=== PATIENT | male | born 1945 | race Caucasian/White ===

== ENCOUNTER → 2016-05-11 | Outpatient (CLI) | payer MEDICARE ==
[2016-05-11 12:57] LABS: EKG EKG PERFORMED
[2016-05-11 13:03] LABS: Basophils % (A) 0 %; CH 31.6; CHCM 33.2; Eosinophils # (A) 0.2 k/uL (0-0.7); Eosinophils % (A) 3 %; HDW 3.01; Luc # (Auto) 0.11; Luc % (Auto) 1; Lymphocytes % (A) 13 %; MCHC 32.5 g/dL (31.0-37.0); MCV 95.5 fL (80.0-100.0); Mean Platelet Volume 8.1; Monocytes # (A) 0.3 k/uL (0-1.0); Monocytes % (A) 4 %; Neutrophils # (A) 6.2 k/uL (1.3-7.7); Neutrophils % (A) 79 %; RBC 4.82 m/uL (4.30-5.90); RDW 13.5 % (11.5-15.5); WBC 7.8 k/uL (3.8-10.6); WBC (Perox) 8.31
[2016-05-11 13:36] LABS: Anion Gap 13 mmol/L; Blood Urea Nitrogen 17 mg/dL (9-20); Calcium 8.9 mg/dL (8.4-10.2); Carbon Dioxide 29 mmol/L (22-30); Chloride 105 mmol/L (98-107); Glucose 138 mg/dL (74-99); Non-African American GFR(MDRD) >60 (>60 ml/min/1.73 sqM); Potassium 4.2 mmol/L (3.5-5.1); Sodium 147 mmol/L (137-145)
== END | disposition home or self-care (01) ==
LOC: LABPAT 12:48
PROVIDERS: ATTEND Urology
DX: Z01.812 Encounter for preprocedural laboratory examination (principal); N20.1 Calculus of ureter; I10 Essential (primary) hypertension; Z79.899 Other long term (current) drug therapy
CPT/HCPCS: 80048; 85025; 93005

== ENCOUNTER 2016-05-16 10:39 | Day surgery (SDC) | payer MEDICARE ==
[2016-05-15 08:56] VITALS: BMI 36.0
[~2016-05-16 10:39] MED LIST: DEXAMETHASONE SOD PHOSPHATE 10 MG/ML 1 ML VIAL IV ONE; HYDROmorphone 1 MG/ML 1 ML SYRINGE IVP PRN; LACTATED RINGERS 1,000 ML IV SCH; ONDANSETRON 4 MG/2 ML VIAL IVP ONE; Pre Op ABX Message 1 EACH MISC MISCELLANE ONE
[2016-05-16] MEDS ORDERED: LIDOCAINE 1% 20 ML VIAL (10MG/ML) FOR IV START INTRADERMA ONE (11:47)
[2016-05-16] MEDS ORDERED: ceFAZolin 1,000 MG in DEXTROSE/WATER 1 50ML.BAG IVPB ONE (12:20)
[2016-05-16] MEDS ORDERED: SUCCINYLCHOLINE CHLORIDE 100 MG/5 ML SYR IV ONE (12:27)
[2016-05-16] MEDS ORDERED: NEOSTIGMINE 1 MG/ML 10 ML VIAL ONE (12:27)
[2016-05-16] MEDS ORDERED: PHENYLEPHRINE-0.9% NACL SYG 1 MG/10 ML SYRINGE ONE (12:27)
[2016-05-16] MEDS ORDERED: ePHEDrine 50 MG/ML 1 ML AMP ONE (12:27)
[2016-05-16] MEDS ORDERED: GLYCOPYRROLATE 0.2 MG/ML 2 ML VIAL ONE (12:27)
[2016-05-16] MEDS ORDERED: MIDAZOLAM 2 MG/2 ML VIAL ONE (12:27)
[2016-05-16] MEDS ORDERED: ROCURONIUM BROMIDE 10 MG/ML 10 ML VIAL IV ONE (12:27)
[2016-05-16] MEDS ORDERED: fentaNYL (PF) 50 MCG/ML 2 ML AMP ONE (12:27)
[2016-05-16] MEDS ORDERED: ceFAZolin 1,000 MG/50 ML BAG (PMX) ONE (12:27)
[2016-05-16] MEDS ORDERED: LIDOCAINE 1% INJ 10MG/ML (20 ML MDV) ONE (12:27)
[2016-05-16] MEDS ORDERED: PROPOFOL 10 MG/ML 20 ML VIAL IV ONE (12:27)
[2016-05-16] MEDS ORDERED: LACTATED RINGERS 1,000 ML BAG IV ONE (12:27)
[2016-05-16] MEDS ORDERED: LACTATED RINGERS 1,000 ML IV ONE ×2 (13:52)
[2016-05-16 15:00] VITALS: TEMP 98.4
--- NOTE | 2016-05-16 15:13 | FL ---
EXAMINATION TYPE: FL guidance operating room DATE OF EXAM: 05/16/2016 2:54 PM CLINICAL HISTORY: Kidney stone TECHNIQUE: Fluoroscopy. COMPARISON: None. FINDINGS: Fluoroscopic guidance was provided during lithotripsy procedure performed by Dr. Flores. A total of 18 seconds of fluoroscopic time was utilized during the procedure and 0 spot images are acq uired. IMPRESSION: As Above.
[2016-05-16] MEDS ORDERED: Acetaminophen-Codeine 300-30mg TAB PO ONE (16:23)
[2016-05-16 17:03] VITALS: RESP 18
[2016-05-16 17:41] VITALS: BP 156/74; PULSE 53
--- NOTE | 2016-05-16 19:50 | OP ---
DATE OF SERVICE: 05/16/2016 SURGEON: MO CHOWDARY MD ELIGIBILITY CONSULTANT: PREOPERATIVE DIAGNOSES: 1. Distal left ureteral calculi (2). 2. Bladder calculi (2). POSTOPERATIVE DIAGNOSES: 1. Distal left ureteral calculi (2). 2. Bladder calculi (2). OPERATION: 1. Left cystoscopy with left ureteroscopy, lithotripsy and placement of left double-J catheter. 2. Cystolithotripsy. ANESTHESIA: General. ESTIMATED BLOOD LOSS: 3 ml SPECIMENS REMOVED: Bladder and left ureteral calculus fragments The patient is a 70-year-old male with a history of urolithiasis who recently developed left flank pain and was discovered to have moderately severe left hydroureteronephrosis secondary to 2 calculi in the distal left ureter, each measuring approximately 6 mm in greatest diameter. In addition, there were 2 calcifications in the bladder measuring approximately 12 to 15 mm in greatest diameter. The findings had also been seen on a CT scan done 2 years ago. In view of failure to pass the ureteral calculi and the size of the bladder calculi, it was felt that ureteroscopy with lithotripsy and cystolithotripsy were indicated. PROCEDURE: The patient was taken to the operating suite, where adequate general anesthesia via orotracheal intubation was instituted. Patient was placed in the dorsal lithotomy position with his legs suspended from padded Joel stirrups. Pneumatic compression stockings were applied to the patient's lower legs. The genitalia were prepped with Betadine soap, painted with Betadine solution and draped in a sterile fashion. The penile and prostatic urethra were traversed under direct vision using the 17 Guamanian cystoscope sheath with 30-degree lens. There was no evidence of inflammatory lesion, tumor or stricture noted in the anterior urethra. Prostatic urethra showed evidence of tri-lobar enlargement with a large median lobe which was somewhat pedunculated and protruded into the bladder. Passage of the cystoscope through the prostatic urethra caused bleeding from its surface. The bladder was examined. On the floor of the bladder were 2 yellowish calculi measuring approximately 1.5 cm in diameter each. The bladder was trabeculated but otherwise unremarkable. The left ureteral orifice was identified. A 0.035 Glidewire was advanced through the left ureteral orifice and up to the region of the renal pelvis. The cystoscope was withdrawn, leaving the Glidewire in place. A 13 Guamanian ureteral re-entry sheath with 11 Guamanian obturator was then advanced over the Glidewire and under fluoroscopic guidance positioned so that the proximal end of the sheath was in the distal ureter. Ureteroscopy was performed through the sheath using the flexible ureteroscope. One of the calculi broke up partially using the holmium laser and a 370-micron fiber at a setting of 600 millijoules and 8 cycles/second. The other calculus was not easily visible. The ureteral re-entry sheath and flexible scope were removed. The semi-rigid ureteroscope was advanced through the urethra and into the bladder. The left ureteral orifice was identified and the ureteroscope was passed into the distal ureter. The remaining calculus was then broken down into multiple small fragments. The largest of the fragments were then removed using the 1.9 Guamanian stone basket. A 0.035 Glidewire was then passed through the ureteroscope and positioned so the proximal end was in the renal pelvis. The cystoscope was reintroduced into the bladder. The bladder calculi were broken down into multiple small fragments using the holmium laser at a setting of 1.2 joules and 6 cycles/second. The fragments were then removed from the bladder through the 25 Guamanian cystoscope sheath. The 22 Guamanian cystoscope sheath was then back-loaded onto the Glidewire and reinserted into the bladder. A 6 Guamanian x 24 cm double-J catheter was then advanced over the Glidewire and positioned so the proximal end coiled in the region of the left renal pelvis and the distal end coiled in the bladder. The bladder was drained and the cystoscope was withdrawn. The patient tolerated the procedure well and left the operating room awake and in satisfactory condition. Blood loss was approximately 3 mL, the majority of which was from the surface of the prostate. The patient will be discharged and will be seen back in approximately 10 days, at which time his double-J catheter will be removed. FRANNIE
== END 2016-05-16 18:52 | disposition home or self-care (01) ==
LOC: OR 10:39
PROVIDERS: ATTEND Urology
DX: N13.2 Hydronephrosis with renal and ureteral calculous obstruction (principal); N21.0 Calculus in bladder; N39.0 Urinary tract infection, site not specified; B95.2 Enterococcus as the cause of diseases classified elsewhere; I10 Essential (primary) hypertension; N40.1 Benign prostatic hyperplasia with lower urinary tract symptoms; I25.10 Atherosclerotic heart disease of native coronary artery without angina pectoris; Z95.5 Presence of coronary angioplasty implant and graft; G47.33 Obstructive sleep apnea (adult) (pediatric); I25.2 Old myocardial infarction; Z86.73 Personal history of transient ischemic attack (TIA), and cerebral infarction without residual deficits; Z79.2 Long term (current) use of antibiotics; Z79.82 Long term (current) use of aspirin; Z79.899 Other long term (current) drug therapy; Z88.8 Allergy status to other drugs, medicaments and biological substances; Z91.040 Latex allergy status; Z87.891 Personal history of nicotine dependence
CPT/HCPCS: 52356; C2625; C1769; J2250; J1100; J2710; J2405; J2001; J3010; J0690; J2370; J0330; J2704; 82365

== ENCOUNTER → 2016-06-26 | Outpatient (CLI) | payer MEDICARE ==
--- NOTE | 2016-06-26 13:02 | US ---
EXAMINATION TYPE: US kidneys/renal and bladder DATE OF EXAM: 06/26/2016 10:36 AM COMPARISON: NONE CLINICAL HISTORY: 71-year-old male N13.30 hydronephrosis. History of stones and stone removal. TECHNIQUE: Multiple sonographic images of the kidneys and bladder were obtained. FINDINGS: Right Kidney: 13.3 x 5.0 x 6.0 cm without hydronephrosis. There is a large shadowing midpole calculu s measuring 1.5 cm. A second echogenic focus also in the mid pole measures 7 mm and likely represents an additional renal calculus. There is a simple cyst in the upper pole measuring 2.1 cm. Left Kidney: 13.0 x 5.3 x 5.3 cm without hydronephrosis. There is a simple cyst in the upper pole sylwia suring 2.0 cm. Mild bladder wall trabeculations. Both ureteral jets are visualized. IMPRESSION: 1. No hydronephrosis. 2. Right-sided nephrolithiasis measuring up to 1.5 cm. 3. A simple cyst within each kidney measuring up to 2.0 cm. 4. Bladder wall trabeculation suggests mural hypertrophy. Correlate for any underlying BPH and chroni c bladder outlet obstruction.
== END | disposition home or self-care (01) ==
LOC: RADUSWWP 10:17
PROVIDERS: ATTEND Urology
DX: N20.0 Calculus of kidney (principal); N28.1 Cyst of kidney, acquired; N32.89 Other specified disorders of bladder
CPT/HCPCS: 76770

== ENCOUNTER → 2017-08-03 | Outpatient (CLI) | payer MEDICARE ==
--- NOTE | 2017-08-03 09:42 | US ---
EXAMINATION TYPE: US duplex aorta DATE OF EXAM: 08/03/2017 COMPARISON: 05/05/2016. CLINICAL HISTORY: I71.4 abdominal aortic aneurysm without rupture. F/U AAA EXAM MEASUREMENTS: Abdominal Aorta: Proximal: 3.0 X 3.1 cm Mid: 2.2 x 2.5 cm Distal: 3.2 x 3.3 cm Bifurcation: JEFF: 1.2 x 1.2 cm ELADIO: 1.4 x 1.2 cm Wall calcifications with Ectatic aorta and slightly larger measurements of proximal and distal port ions showing AAA IMPRESSION: Abdominal aortic aneurysm as described. No significant interval change appreciated.
== END ==
LOC: RADUSWWP 08:32
PROVIDERS: ATTEND Internal Medicine
DX: I71.4 Abdominal aortic aneurysm, without rupture (principal)
CPT/HCPCS: 93979

== ENCOUNTER → 2018-02-18 | Outpatient (CLI) | payer MEDICARE ==
--- NOTE | 2018-02-18 13:59 | US ---
EXAMINATION TYPE: US groin RT DATE OF EXAM: 02/18/2018 COMPARISON: NONE CLINICAL HISTORY: 72-year-old male K43.6 Hernia of Abdominal Wall. Right groin stinging sensation aft er coughing today. TECHNIQUE: Multiple sonographic images of the right inguinal region with and without Valsalva. FINDINGS: Leno Sewer notes: No hernia is identified at patient's complaint of medial right groin/pain and sti nging. A couple of lymph nodes are noted at right groin with larger node mildly enlarged at 2.6 x 2.0 x 0.9cm. IMPRESSION: 1. Dynamic exam with Valsalva shows no sonographic evidence for inguinal hernia. 2. Borderline to mildly enlarged right inguinal lymph node is noted. This lymph node maintains a norm al, large fatty hilum. Probably reactive.
== END | disposition home or self-care (01) ==
LOC: RADUSWWP 12:52
PROVIDERS: ATTEND Family Medicine
DX: R59.0 Localized enlarged lymph nodes (principal)

== ENCOUNTER → 2018-02-22 | Outpatient (CLI) | payer MEDICARE ==
--- NOTE | 2018-02-22 10:10 | US ---
EXAMINATION TYPE: US duplex aorta DATE OF EXAM: 02/22/2018 COMPARISON: 07/22 CLINICAL HISTORY: I71.4 Abdominal aortic aneurysm. prior abn US EXAM MEASUREMENTS: Abdominal Aorta: Proximal: 3.0 x 2.6cm Mid: 2.3 x 2.3cm Distal: 3.3 x 2.8cm Bifurcation: 1.3 x 1.8cm and 1.5 x 1.2cm IMPRESSION: Somewhat ectatic aorta, changes, small AAA seen distally at 3.3cm.
== END ==
LOC: RADUSWWP 09:25
PROVIDERS: ATTEND Internal Medicine
DX: I71.4 Abdominal aortic aneurysm, without rupture (principal)
CPT/HCPCS: 93979

== ENCOUNTER 2018-03-12 00:37 | Emergency (ER) | payer MEDICARE ==
[2018-03-12 00:45] VITALS: BP 157/79; PULSE 53; RESP 18; TEMP 97.7
[2018-03-12] MEDS ORDERED: SODIUM CHLORIDE 0.9% 1,000 ML IV STA (01:14)
[2018-03-12 01:30] LABS: Basophils % (A) 1 %; Eosinophils # (A) 0.2 k/uL (0-0.7); Eosinophils % (A) 3 %; HCT 40.9 % (39.0-53.0); HGB 13.6 gm/dL (13.0-17.5); Lymphocytes # (A) 1.4 k/uL (1.0-4.8); Lymphocytes % (A) 20 %; MCH 31.5 pg (25.0-35.0); MCHC 33.3 g/dL (31.0-37.0); MCV 94.6 fL (80.0-100.0); Mean Platelet Volume 8.2; Monocytes # (A) 0.5 k/uL (0-1.0); Monocytes % (A) 7 %; Neutrophils # (A) 4.7 k/uL (1.3-7.7); Neutrophils % (A) 67 %; Platelet Count 122 k/uL (150-450); RBC 4.32 m/uL (4.30-5.90); RDW 14.2 % (11.5-15.5)
--- NOTE | 2018-03-12 01:37 | ED ---
Extremity Problem HPI - General Chief complaint: Extremity Problem,Nontraumatic Stated complaint: Arm Numbness Time Seen by Provider: 03/12/18 00:55 Source: patient, RN notes reviewed, old records reviewed Mode of arrival: ambulatory Limitations: no limitations - History of Present Illness Initial comments: Patient is a 72-year-old male with a history of coronary artery disease presents emergency department with one week of intermittent numbness tingling on the left arm. Patient this time has no headache. Has no other complaints of weakness. Denies chest pain. Patient reports he took a nitro to see it it would relieve pain, but it did not. Patient states the pain is worse and is laying in his bed today. Patient states that he has had no significant shortness of breath. He denies any nausea or vomiting or abdominal pain. Patient's scrap baller is Dr. Rojas. - Related Data Home Medications Medication Instructions Recorded Confirmed Atenolol [Tenormin] 25 mg PO QAM 08/27/14 05/16/16 Aspirin EC [Ecotrin Low Dose] 81 mg PO HS 08/29/14 05/16/16 Isosorbide Mononitrate [Ismo] 20 mg PO BID 08/29/14 05/16/16 Niacin [Niacin ER] 1,000 mg PO HS 08/29/14 05/16/16 Simvastatin [Zocor] 20 mg PO HS 08/29/14 05/16/16 Vitamin B Complex 1 cap PO DAILY 08/29/14 05/16/16 Doxazosin [Cardura] 2 mg PO HS 05/02/16 05/16/16 Amoxicillin 500 mg PO TID 05/15/16 05/16/16 Methocarbamol [Robaxin] 750 mg PO BID PRN 05/15/16 05/16/16 Previous Rx's Medication Instructions Recorded traMADol HCl [Ultram] 50 mg PO Q6H PRN #20 tab 05/03/16 Acetaminophen-Codeine 300-30mg 1 tab PO Q6H PRN #15 tablet 05/16/16 [Tylenol w/codeine #3] Cyclobenzaprine [Flexeril] 10 mg PO TID #9 tab 03/12/18 Dexamethasone 0.75 mg PO DAILY #12 tab 03/12/18 Allergies Allergy/AdvReac Type Severity Reaction Status Date / Time latex Allergy Dyspnea Verified 03/12/18 00:45 Review of Systems ROS Statement: Those systems with pertinent positive or pertinent negative responses have been documented in the HPI. ROS Other: All systems not noted in ROS Statement are negative. Past Medical History Past Medical History: Chest Pain / Angina, CVA/TIA, Hypertension, Myocardial Infarction ([place]) Additional Past Medical History / Comment(s): Patient states he has had stents and heart cath but unsure of the date and how many stents. Last Myocardial Infarction Date:: 1990 History of Any Multi-Drug Resistant Organisms: None Reported Past Surgical History: Heart Catheterization With Stent, Tonsillectomy Additional Past Surgical History / Comment(s): VASECTOMY Past Anesthesia/Blood Transfusion Reactions: No Reported Reaction Date of Last Stent Placement:: unknown Past Psychological History: No Psychological Hx Reported Smoking Status: Never smoker - Past Family History Father Family Medical History: Myocardial Infarction ([place]) Additional Family Medical History / Comment(s): Father at 52 from [place] Mother Family Medical History: Cancer Additional Family Medical History / Comment(s): SKIN CANCER General Exam - General Exam Comments Initial Comments: 72-year-old male. Alert and oriented 3. Patient appears in no significant distress. Limitations: no limitations General appearance: alert, in no apparent distress Head exam: Present: atraumatic, normocephalic, normal inspection Eye exam: Present: normal appearance, PERRL, EOMI. Absent: scleral icterus, conjunctival injection, periorbital swelling ENT exam: Present: normal exam, mucous membranes moist Neck exam: Present: normal inspection. Absent: tenderness, meningismus, lymphadenopathy Respiratory exam: Present: normal lung sounds bilaterally. Absent: respiratory distress, wheezes, rales, rhonchi, stridor Cardiovascular Exam: Present: regular rate, normal rhythm, normal heart sounds. Absent: systolic murmur, diastolic murmur, rubs, gallop, clicks GI/Abdominal exam: Present: soft, normal bowel sounds. Absent: distended, tenderness, guarding, rebound, rigid Extremities exam: Present: normal inspection, full ROM, normal capillary refill , other (normal sensation and pulses in Left arm. ). Absent: tenderness, pedal edema, joint swelling, calf tenderness Back exam: Present: normal inspection Neurological exam: Present: alert, oriented X3, CN II-XII intact Psychiatric exam: Present: normal affect, normal mood Course Vital Signs 03/12/18 00:41 Temperature 97.7 F Pulse Rate 53 L Respiratory 18 Rate Blood Pressure 157/79 O2 Sat by Pulse 99 Oximetry Medical Decision Making - Medical Decision Making Patient is a 72 year old male with left arm tingling and pain for one week intermittently. Patient pain was worse this evening. Denies associated chest tightness or pressure. Denies headache. He has no neurological deficits or signs of weakness. Normal pulses in all extremities. Patient has a normal EKG with no acute changes. Troponin is negative. CXR is nromal, no acute changes noted. Patient CBC adn CMP are unremarkable. Given pain for one week, if this is cardiac in nature would expect changes in EKG and troponin. Patient pain seems to be musculoskeletal and likely pinched nerve. Patient does report pain is relieved with pressing on arm in certain areas. Discussed that patient can have short course of steroid, muscle relaxer. Discussed return parameters. Patient agrees to follow up with Dr. Pham and return parameters discussed. - Lab Data Result diagrams: 03/12/18 01:18 03/12/18 01:18 Lab Results 03/12/18 03/12/18 03/12/18 Range/Units 01:18 01:18 01:18 WBC 7.0 (3.8-10.6) k/uL RBC 4.32 (4.30-5.90) m/uL Hgb 13.6 (13.0-17.5) gm/dL Hct 40.9 (39.0-53.0) % MCV 94.6 (80.0-100.0) fL MCH 31.5 (25.0-35.0) pg MCHC 33.3 (31.0-37.0) g/dL RDW 14.2 (11.5-15.5) % Plt Count 122 L (150-450) k/uL Neutrophils % 67 % Lymphocytes % 20 % Monocytes % 7 % Eosinophils % 3 % Basophils % 1 % Neutrophils # 4.7 (1.3-7.7) k/uL Lymphocytes # 1.4 (1.0-4.8) k/uL Monocytes # 0.5 (0-1.0) k/uL Eosinophils # 0.2 (0-0.7) k/uL Basophils # 0.0 (0-0.2) k/uL PT (9.0-12.0) sec INR (<1.2) APTT (22.0-30.0) sec Sodium 140 (137-145) mmol/L Potassium 4.1 (3.5-5.1) mmol/L Chloride 108 H (98-107) mmol/L Carbon Dioxide 26 (22-30) mmol/L Anion Gap 6 mmol/L BUN 23 H (9-20) mg/dL Creatinine 0.80 (0.66-1.25) mg/dL Est GFR (CKD-EPI)AfAm >90 (>60 ml/min/1.73 sqM) Est GFR (CKD-EPI)NonAf 88 (>60 ml/min/1.73 sqM) Glucose 93 (74-99) mg/dL Calcium 9.0 (8.4-10.2) mg/dL Magnesium 2.2 (1.6-2.3) mg/dL Total Bilirubin 0.8 (0.2-1.3) mg/dL AST 27 (17-59) U/L ALT 27 (21-72) U/L Alkaline Phosphatase 96 (38-126) U/L Total Creatine Kinase 140 (55-170) U/L CK-MB (CK-2) 3.0 H (0.0-2.4) ng/mL CK-MB (CK-2) Rel Index 2.1 Troponin I <0.012 (0.000-0.034) ng/mL Total Protein 6.3 (6.3-8.2) g/dL Albumin 3.8 (3.5-5.0) g/dL 03/12/18 Range/Units 01:18 WBC (3.8-10.6) k/uL RBC (4.30-5.90) m/uL Hgb (13.0-17.5) gm/dL Hct (39.0-53.0) % MCV (80.0-100.0) fL MCH (25.0-35.0) pg MCHC (31.0-37.0) g/dL RDW (11.5-15.5) % Plt Count (150-450) k/uL Neutrophils % % Lymphocytes % % Monocytes % % Eosinophils % % Basophils % % Neutrophils # (1.3-7.7) k/uL Lymphocytes # (1.0-4.8) k/uL Monocytes # (0-1.0) k/uL Eosinophils # (0-0.7) k/uL Basophils # (0-0.2) k/uL PT 10.9 (9.0-12.0) sec INR 1.1 (<1.2) APTT 25.3 (22.0-30.0) sec Sodium (137-145) mmol/L Potassium (3.5-5.1) mmol/L Chloride (98-107) mmol/L Carbon Dioxide (22-30) mmol/L Anion Gap mmol/L BUN (9-20) mg/dL Creatinine (0.66-1.25) mg/dL Est GFR (CKD-EPI)AfAm (>60 ml/min/1.73 sqM) Est GFR (CKD-EPI)NonAf (>60 ml/min/1.73 sqM) Glucose (74-99) mg/dL Calcium (8.4-10.2) mg/dL Magnesium (1.6-2.3) mg/dL Total Bilirubin (0.2-1.3) mg/dL AST (17-59) U/L ALT (21-72) U/L Alkaline Phosphatase (38-126) U/L Total Creatine Kinase (55-170) U/L CK-MB (CK-2) (0.0-2.4) ng/mL CK-MB (CK-2) Rel Index Troponin I (0.000-0.034) ng/mL Total Protein (6.3-8.2) g/dL Albumin (3.5-5.0) g/dL 03/12/18 01:36 EKG shows sinus bradycardia otherwise normal EKG. Ventricular rate of 52 bpm. MS interval is 186 ms. QRS duration 98. QT QTc is 440/409. - Radiology Data Radiology results: report reviewed CXR is negative for acute cardiopulmonary disease. Disposition Clinical Impression: Left upper arm pain Disposition: HOME SELF-CARE Condition: Good Prescriptions: Cyclobenzaprine [Flexeril] 10 mg PO TID #9 tab Dexamethasone 0.75 mg PO DAILY #12 tab Is patient prescribed a controlled substance at d/c from ED?: No Referrals: Gallito Pham MD [Primary Care Provider] - 1-2 days Time of Disposition: 02:54
[2018-03-12 01:45] LABS: ALT 27 U/L (21-72); AST 27 U/L (17-59); Albumin 3.8 g/dL (3.5-5.0); Alkaline Phosphatase 96 U/L (38-126); Anion Gap 6 mmol/L; Blood Urea Nitrogen 23 mg/dL (9-20); Carbon Dioxide 26 mmol/L (22-30); Chloride 108 mmol/L (98-107); Glucose 93 mg/dL (74-99); Magnesium 2.2 mg/dL (1.6-2.3); Potassium 4.1 mmol/L (3.5-5.1); Sodium 140 mmol/L (137-145); Total Bilirubin 0.8 mg/dL (0.2-1.3); Total Protein 6.3 g/dL (6.3-8.2)
[2018-03-12 01:52] LABS: Creatine Kinase 140 U/L (55-170)
[2018-03-12 01:53] LABS: INR 1.1 (<1.2); Partial Thromboplastin Time 25.3 sec (22.0-30.0); Prothrombin Time 10.9 sec (9.0-12.0)
[2018-03-12 02:05] LABS: Troponin I <0.012 ng/mL (0.000-0.034)
--- NOTE | 2018-03-12 02:07 | XR ---
EXAMINATION TYPE: XR chest 2V DATE OF EXAM: 03/12/2018 COMPARISON: 02/06/2015 HISTORY: Chest pain TECHNIQUE: Frontal and lateral views of the chest are obtained. FINDINGS: There is no heart failure nor confluent pneumonic infiltrate. Costophrenic angles are nicolas r. Thoracic aorta is atheromatous. There is mild spurring in the thoracic spine. IMPRESSION: No active cardiopulmonary disease. No change.
[2018-03-12] MEDS ORDERED: ORPHENADRINE 30 MG/ML 2 ML VIAL IVP STA (02:52)
[2018-03-12] MEDS ORDERED: KETOROLAC 30 MG/ML 1 ML VIAL IVP STA (02:52)
== END 2018-03-12 03:28 | disposition home or self-care (01) ==
LOC: EC 00:37
DX: M79.622 Pain in left upper arm (principal); R00.1 Bradycardia, unspecified; R20.2 Paresthesia of skin; R20.0 Anesthesia of skin; I10 Essential (primary) hypertension; I25.10 Atherosclerotic heart disease of native coronary artery without angina pectoris; I25.2 Old myocardial infarction; Z91.040 Latex allergy status; Z79.82 Long term (current) use of aspirin; Z79.899 Other long term (current) drug therapy; Z86.79 Personal history of other diseases of the circulatory system; Z95.818 Presence of other cardiac implants and grafts; Z82.49 Family history of ischemic heart disease and other diseases of the circulatory system
CPT/HCPCS: 36415; 93005; 80053; 82550; 82553; 83735; 84484; 85025; 85610; 85730; 71046; 99284; 96374; 96375; 96361 ×2; J2360; J1885

== ENCOUNTER 2018-06-18 15:04 | Observation (INO) | payer MEDICARE ==
[2018-06-18] MEDS ORDERED: SODIUM CHLORIDE 0.9% 500 ML 500 ML IV STA (15:24)
[2018-06-18] MEDS ORDERED: NITROGLYCERIN SL TABS 0.4 MG TAB SUBLINGUAL STA (15:24)
[2018-06-18] MEDS ORDERED: ASPIRIN 81 MG PO STA (15:24)
--- NOTE | 2018-06-18 15:35 | ED ---
General Adult HPI - General Chief complaint: Chest Pain Stated complaint: chest pain Time Seen by Provider: 06/18/18 15:05 Source: patient, RN notes reviewed Mode of arrival: wheelchair Limitations: no limitations - History of Present Illness Initial comments: This is a 72-year-old male who complains of chest pain since yesterday. Patient states the duration of the pain lasted about 10 minutes. Patient states she's also noted shortness of breath with the pain. Patient states he has no radiation of the pain. Patient denies any diaphoretic episodes. Patient denies any nausea. Patient states he does have a history of multiple stents a heart attack in the past. Patient denies any diabetes but states he does have high blood pressure high cholesterol. Patient denies abdominal pain patient denies nausea vomiting diarrhea. Patient denies any fever or cough. Patient states this pain feels typical of his chest pain that he had with his heart attack. Patient states currently he is having a little bit of pain at this time. - Related Data Home Medications Medication Instructions Recorded Confirmed Isosorbide Mononitrate [Ismo] 20 mg PO BID 08/29/14 06/18/18 Niacin [Niacin ER] 1,000 mg PO HS 08/29/14 06/18/18 Simvastatin [Zocor] 20 mg PO DAILY 08/29/14 06/18/18 Doxazosin [Cardura] 4 mg PO DAILY 05/02/16 06/18/18 Atenolol [Tenormin] 50 mg PO DAILY 06/18/18 06/18/18 Nystatin 100,000Unit/gm Cream 1 applic TOPICAL BID 06/18/18 06/18/18 [Mycostatin Cream] tiZANidine HCL [Zanaflex] 4 mg PO BID 06/18/18 06/18/18 Previous Rx's Medication Instructions Recorded traMADol HCl [Ultram] 50 mg PO Q6H PRN #20 tab 05/03/16 Allergies Allergy/AdvReac Type Severity Reaction Status Date / Time latex Allergy Dyspnea Verified 06/18/18 15:59 Review of Systems ROS Statement: Those systems with pertinent positive or pertinent negative responses have been documented in the HPI. ROS Other: All systems not noted in ROS Statement are negative. Past Medical History Past Medical History: Chest Pain / Angina, CVA/TIA, Hypertension, Myocardial Infarction ([place]) Additional Past Medical History / Comment(s): Patient states he has had stents and heart cath but unsure of the date and how many stents. Last Myocardial Infarction Date:: 1990 History of Any Multi-Drug Resistant Organisms: None Reported Past Surgical History: Heart Catheterization With Stent, Tonsillectomy Additional Past Surgical History / Comment(s): VASECTOMY Past Anesthesia/Blood Transfusion Reactions: No Reported Reaction Date of Last Stent Placement:: unknown Past Psychological History: No Psychological Hx Reported Smoking Status: Never smoker Past Alcohol Use History: None Reported Past Drug Use History: None Reported - Past Family History Father Family Medical History: Myocardial Infarction ([place]) Additional Family Medical History / Comment(s): Father at 52 from [place] Mother Family Medical History: Cancer Additional Family Medical History / Comment(s): SKIN CANCER General Exam - General Exam Comments Initial Comments: GENERAL: Patient is well-developed and well-nourished. Patient is nontoxic and well- hydrated and is in mild distress. ENT: Neck is soft and supple. No significant lymphadenopathy is noted. Oropharynx is clear. Moist mucous membranes. Neck has full range of motion without eliciting any pain. EYES: The sclera were anicteric and conjunctiva were pink and moist. Extraocular movements were intact and pupils were equal round and reactive to light. Eyelids were unremarkable. PULMONARY: Unlabored respirations. Good breath sounds bilaterally. No audible rales rhonchi or wheezing was noted. CARDIOVASCULAR: There is a regular rate and rhythm without any murmurs gallops or rubs. ABDOMEN: Soft and nontender with normal bowel sounds. No palpable organomegaly was noted. There is no palpable pulsatile mass. SKIN: Skin is clear with no lesions or rashes and otherwise unremarkable. NEUROLOGIC: Patient is alert and oriented x3. Cranial nerves II through XII are grossly intact. Motor and sensory are also intact. Normal speech, volume and content. Symmetrical smile. MUSCULOSKELETAL: Normal extremities with adequate strength and full range of motion. No lower extremity swelling or edema. No calf tenderness. LYMPHATICS: No significant lymphadenopathy is noted PSYCHIATRIC: Normal psychiatric evaluation. Limitations: no limitations Course Vital Signs 06/18/18 06/18/18 06/18/18 15:08 15:30 16:00 Temperature 97.5 F L Pulse Rate 54 L Respiratory 18 Rate Blood Pressure 144/76 139/70 150/82 O2 Sat by Pulse 97 Oximetry 06/18/18 16:30 Temperature Pulse Rate 61 Respiratory 15 Rate Blood Pressure 137/70 O2 Sat by Pulse 96 Oximetry Medical Decision Making - Medical Decision Making EKG shows sinus bradycardia 51 bpm [place] interval 102 QRS is 96 Q-T intervals 432 QTC is 398. Patient's EKG shows no ST segment elevation or T wave abnormalities. Chest x-ray shows no acute abnormality I started the patient on heparin. She received nitroglycerin while in the emergency department and had no chest pain when I reevaluated him. I spoke with Dr. Pham he agreed to admit the patient admitted the patient I wrote admitting orders to continue the heparin Nitropaste and aspirin on the floor. I consult to cardiology. - Lab Data Result diagrams: 06/18/18 15:45 06/18/18 15:45 Lab Results 06/18/18 06/18/18 06/18/18 Range/Units 15:45 15:45 15:45 WBC 6.0 (3.8-10.6) k/uL RBC 4.56 (4.30-5.90) m/uL Hgb 14.5 (13.0-17.5) gm/dL Hct 42.5 (39.0-53.0) % MCV 93.3 (80.0-100.0) fL MCH 31.7 (25.0-35.0) pg MCHC 34.0 (31.0-37.0) g/dL RDW 13.7 (11.5-15.5) % Plt Count 130 L (150-450) k/uL Neutrophils % 69 % Lymphocytes % 19 % Monocytes % 7 % Eosinophils % 4 % Basophils % 0 % Neutrophils # 4.1 (1.3-7.7) k/uL Lymphocytes # 1.2 (1.0-4.8) k/uL Monocytes # 0.4 (0-1.0) k/uL Eosinophils # 0.2 (0-0.7) k/uL Basophils # 0.0 (0-0.2) k/uL PT (9.0-12.0) sec INR (<1.2) APTT (22.0-30.0) sec Sodium 140 (137-145) mmol/L Potassium 4.5 (3.5-5.1) mmol/L Chloride 106 (98-107) mmol/L Carbon Dioxide 26 (22-30) mmol/L Anion Gap 8 mmol/L BUN 18 (9-20) mg/dL Creatinine 0.89 (0.66-1.25) mg/dL Est GFR (CKD-EPI)AfAm >90 (>60 ml/min/1.73 sqM) Est GFR (CKD-EPI)NonAf 85 (>60 ml/min/1.73 sqM) Glucose 96 (74-99) mg/dL Calcium 9.3 (8.4-10.2) mg/dL Magnesium 2.3 (1.6-2.3) mg/dL Total Bilirubin 1.1 (0.2-1.3) mg/dL AST 31 (17-59) U/L ALT 32 (21-72) U/L Alkaline Phosphatase 84 (38-126) U/L Total Creatine Kinase 179 H (55-170) U/L CK-MB (CK-2) 3.0 H (0.0-2.4) ng/mL CK-MB (CK-2) Rel Index 1.7 Troponin I <0.012 (0.000-0.034) ng/mL Total Protein 6.7 (6.3-8.2) g/dL Albumin 4.2 (3.5-5.0) g/dL 06/18/18 Range/Units 15:45 WBC (3.8-10.6) k/uL RBC (4.30-5.90) m/uL Hgb (13.0-17.5) gm/dL Hct (39.0-53.0) % MCV (80.0-100.0) fL MCH (25.0-35.0) pg MCHC (31.0-37.0) g/dL RDW (11.5-15.5) % Plt Count (150-450) k/uL Neutrophils % % Lymphocytes % % Monocytes % % Eosinophils % % Basophils % % Neutrophils # (1.3-7.7) k/uL Lymphocytes # (1.0-4.8) k/uL Monocytes # (0-1.0) k/uL Eosinophils # (0-0.7) k/uL Basophils # (0-0.2) k/uL PT 11.1 (9.0-12.0) sec INR 1.0 (<1.2) APTT 27.6 (22.0-30.0) sec Sodium (137-145) mmol/L Potassium (3.5-5.1) mmol/L Chloride (98-107) mmol/L Carbon Dioxide (22-30) mmol/L Anion Gap mmol/L BUN (9-20) mg/dL Creatinine (0.66-1.25) mg/dL Est GFR (CKD-EPI)AfAm (>60 ml/min/1.73 sqM) Est GFR (CKD-EPI)NonAf (>60 ml/min/1.73 sqM) Glucose (74-99) mg/dL Calcium (8.4-10.2) mg/dL Magnesium (1.6-2.3) mg/dL Total Bilirubin (0.2-1.3) mg/dL AST (17-59) U/L ALT (21-72) U/L Alkaline Phosphatase (38-126) U/L Total Creatine Kinase (55-170) U/L CK-MB (CK-2) (0.0-2.4) ng/mL CK-MB (CK-2) Rel Index Troponin I (0.000-0.034) ng/mL Total Protein (6.3-8.2) g/dL Albumin (3.5-5.0) g/dL Critical Care Time Critical Care Time: Yes Total Critical Care Time: 35 Disposition Clinical Impression: Unstable angina pectoris Disposition: ADMITTED IP TO THIS [facility] Referrals: Gallito Pham MD [Primary Care Provider] - 1-2 days Time of Disposition: 17:02
[2018-06-18 16:09] LABS: Basophils % (A) 0 %; Eosinophils # (A) 0.2 k/uL (0-0.7); Eosinophils % (A) 4 %; HCT 42.5 % (39.0-53.0); HGB 14.5 gm/dL (13.0-17.5); Lymphocytes # (A) 1.2 k/uL (1.0-4.8); Lymphocytes % (A) 19 %; MCH 31.7 pg (25.0-35.0); MCV 93.3 fL (80.0-100.0); Mean Platelet Volume 8.2; Monocytes # (A) 0.4 k/uL (0-1.0); Monocytes % (A) 7 %; Neutrophils # (A) 4.1 k/uL (1.3-7.7); Neutrophils % (A) 69 %; Platelet Count 130 k/uL (150-450); RBC 4.56 m/uL (4.30-5.90); RDW 13.7 % (11.5-15.5)
[2018-06-18] MEDS: NITROGLYCERIN OINT 1 INCH/GM PACKET TOPICAL STA ×2 (16:09→17:49)
--- NOTE | 2018-06-18 16:09 | XR ---
EXAMINATION TYPE: XR chest 2V DATE OF EXAM: 06/18/2018 COMPARISON: Prior chest x-ray 03/12/2018 HISTORY: Chest pain TECHNIQUE: Frontal and lateral views of the chest are obtained. FINDINGS: There is no focal air space opacity, pleural effusion, or pneumothorax seen. The cardiac silhouette size is stable, mildly enlarged. The osseous structures are intact. The aorta is dense. There are cardiac leads. Thoracic spondylosis is present. IMPRESSION: No acute cardiopulmonary process. Stable mild cardiomegaly.
[2018-06-18 16:17] LABS: Partial Thromboplastin Time 27.6 sec (22.0-30.0); Prothrombin Time 11.1 sec (9.0-12.0)
[2018-06-18 16:22] LABS: ALT 32 U/L (21-72); AST 31 U/L (17-59); Albumin 4.2 g/dL (3.5-5.0); Alkaline Phosphatase 84 U/L (38-126); Anion Gap 8 mmol/L; Blood Urea Nitrogen 18 mg/dL (9-20); Calcium 9.3 mg/dL (8.4-10.2); Carbon Dioxide 26 mmol/L (22-30); Chloride 106 mmol/L (98-107); Glucose 96 mg/dL (74-99); Magnesium 2.3 mg/dL (1.6-2.3); Potassium 4.5 mmol/L (3.5-5.1); Sodium 140 mmol/L (137-145); Total Bilirubin 1.1 mg/dL (0.2-1.3); Total Protein 6.7 g/dL (6.3-8.2)
[2018-06-18 16:25] LABS: Creatine Kinase 179 U/L (55-170)
[2018-06-18 16:39] LABS: Troponin I <0.012 ng/mL (0.000-0.034)
[2018-06-18] MEDS ORDERED: HEPARIN SODIUM,PORCINE 5,000 UNIT/ML 1 ML VIAL IV ONE (16:59)
[2018-06-18] MEDS ORDERED: HEPARIN SOD,PORK IN 0.45% NACL 25,000 UNIT in 0.45% NACL 1 250ML.BAG IV SCH (17:00)
[2018-06-18] MEDS ORDERED: NITROGLYCERIN SL TABS 0.4 MG TAB SUBLINGUAL PRN (17:03)
[2018-06-18 18:41] VITALS: BMI 36.3
[2018-06-18] MEDS ORDERED: traMADol 50 MG TAB PO PRN (18:44)
[2018-06-18] MEDS: NITROGLYCERIN OINT 1 INCH/GM PACKET TOPICAL SCH ×2 (18:52→23:50)
[2018-06-18] MEDS: NIACIN TR 500 MG CAPLET PO SCH (20:14)
[2018-06-18] MEDS: tiZANidine 4 MG TAB PO SCH (20:14)
[2018-06-18] MEDS: NYSTATIN 100,000UNIT/GM CREAM 30 GM TUBE TOPICAL SCH (20:15)
[2018-06-18] MEDS ORDERED: ISOSORBIDE MONONITRATE 20 MG TAB PO SCH (21:00)
--- NOTE | 2018-06-18 23:36 | HP ---
HISTORY AND PHYSICAL ATTENDING PHYSICIAN: Dr. Grady Pham. CHIEF COMPLAINT: Chest pain. HISTORY OF PRESENT ILLNESS: This is a 70-year-old gentleman who presents with a complaint of tightness sensation in the precordial area. The patient's symptoms last about a few minutes to about 10 minute range. He has had at least 3 or 4 episodes since yesterday. 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 The patient presented to the emergency room with a complaint of this discomfort, saying that he had the same type of discomfort when he had his heart condition, though not as intense. The patient has some associated shortness of breath. No radiation of pain. No palpitations. No diaphoresis. No nausea or vomiting. The patient, at the time of evaluation, is pain-free and has no symptoms. He is in no distress. PAST MEDICAL HISTORY: Significant for non ST elevation myocardial infarction back in 2007 requiring a stent placement. The patient has a history of similar pains and hospitalizations and noted to have negative workup. The patient has had a history of hypertension, hyperlipidemia, on medical therapy. Also has degenerative arthritis, especially affecting the lumbosacral spine. Denies any history of lung disease, liver disease, kidney disease, ulcers, TB, hepatitis. No history of any thyroid condition. No history of rheumatic fever, CVA. He does have a history of nephrolithiasis in the past. History of BPH. PAST SURGICAL HISTORY: Negative for any major surgeries. He had an endovenous laser ablation done to the left leg. PERSONAL HISTORY: He is an ex-smoker. No alcohol. SOCIAL HISTORY: , lives with spouse, daughter visiting. FAMILY MEDICAL HISTORY: Mother age 92, history of hypertensive cardiovascular disease. Father with history of coronary artery disease and abdominal aortic aneurysm. The patient has one daughter in good health, another daughter has a history of mental retardation. ALLERGIES: LATEX. MEDICATIONS: 1. Niacin 1000 mg at bedtime. 2. Tramadol 50 mg every 6 p.r.n. 3. Simvastatin 20 mg daily. 4. ISMO 20 mg b.i.d. 5. Atenolol 50 mg daily. 6. Zanaflex 4 mg b.i.d. 7. Cardura 4 mg daily. REVIEW OF SYSTEMS: NEURO: Denies any headaches or dizziness. No double vision or blurred vision. No symptoms of TIA, syncope, seizures. PSYCH: No anxiety or depression. CARDIAC: The patient had presenting symptoms of chest pain. No shortness of breath at present. Had mild shortness of breath associated with pain. No palpitations. RESPIRATORY: No shortness of breath, cough, hemoptysis. GI: No nausea, vomiting, abdominal pain, diarrhea, constipation, hematochezia, melena. : No symptoms of dysuria, hematuria, urgency, frequency. EXTREMITIES: Denies pain or edema. CONSTITUTIONAL: No fevers or chills. HEMATOLOGIC: No anemia or bleeding disorder. ENDOCRINE: No history of diabetes mellitus or hypothyroidism. SKIN: No rashes. PHYSICAL EXAMINATION: GENERAL: Pleasant gentleman, at present in no distress. VITAL SIGNS: Temperature 97.3, pulse 54, respirations 18, blood pressure 165/81, pulse ox 97% on room air. HEENT: Normocephalic. NECK: No JVD. CHEST: Clear to auscultation and percussion. CARDIAC: Normal S1, S2 with no gallops, murmurs, rubs. ABDOMEN: Soft, protuberant. Bowel sounds are active. No organomegaly. EXTREMITIES: No edema, no tenderness. NEUROLOGIC: Awake, alert, oriented with well-coordinated movements. LABORATORY ASSESSMENT: EKG reveals normal sinus rhythm with sinus bradycardia, rate of 51. No evidence of previous myocardial injury. Sodium 130, otherwise normal electrolytes, BUN and creatinine. Normal hepatic function. Total CPK is 179. Troponin less than 0.112. ASSESSMENT: 1. Chest pain, atypical. 2. Known history of coronary artery disease. 3. Essential hypertension. 4. Hyperlipidemia. PLAN: The patient is stable at present. Has been started on nitroglycerin and heparin. We will continue the same. Obtain a Cardiology evaluation. The patient's troponin is elevated. Will have testing in the morning. Prognosis guarded. MMODL / IJN: [id number] /
[2018-06-18 23:42] LABS: Creatine Kinase 138 U/L (55-170)
[2018-06-18 23:55] LABS: Creatine Kinase MB 2.4 ng/mL (0.0-2.4); Troponin I <0.012 ng/mL (0.000-0.034)
[2018-06-19 05:15] LABS: Creatine Kinase 113 U/L (55-170)
[2018-06-19 05:16] LABS: Cholesterol 101 mg/dL (<200); HDL Cholesterol 36 mg/dL (40-60); LDL Cholesterol,Calculated 37 mg/dL (0-99); Triglycerides 138 mg/dL (<150)
[2018-06-19 05:27] LABS: Creatine Kinase MB 1.7 ng/mL (0.0-2.4); Troponin I <0.012 ng/mL (0.000-0.034)
[2018-06-19] MEDS: NITROGLYCERIN OINT 1 INCH/GM PACKET TOPICAL SCH (06:09)
[2018-06-19] MEDS ORDERED: ALPRAZolam 0.25 MG TAB PO PRN (08:36)
[2018-06-19] MEDS ORDERED: ALPRAZolam 0.5 MG TAB PO PRN (08:36)
[2018-06-19] MEDS ORDERED: SODIUM CHLORIDE 0.9% 1,000 ML in EMPTY BAG 1 BAG IV ONE (08:36)
[2018-06-19] MEDS: ASPIRIN 325 MG TAB PO SCH (09:42)
[2018-06-19] MEDS: ATORVASTATIN 10 MG TAB PO SCH (09:42)
--- NOTE | 2018-06-19 09:58 | ECHOF ---
Referral Reason:cp MEASUREMENTS -------- HEIGHT: 170.2 cm WEIGHT: 105.2 kg BP: 133/79 RVIDd: 3.1 cm (< 3.3) IVSd: 1.6 cm (0.6 - 1.1) LVIDd: 4.8 cm (3.9 - 5.3) LVPWd: 1.6 cm (0.6 - 1.1) IVSs: 1.8 cm LVIDs: 2.6 cm LVPWs: 1.7 cm LA Diam: 3.9 cm (2.7 - 3.8) LAESV Index (A-L): 29.11 ml/m Ao Diam: 3.5 cm (2.0 - 3.7) AV Cusp: 2.3 cm (1.5 - 2.6) MV EXCURSION: 18.048 mm (> 18.000) MV EF SLOPE: 128 mm/s (70 - 150) EPSS: 0.6 cm MV E Cipriano: 0.91 m/s MV DecT: 249 ms MV A Cipriano: 0.87 m/s MV E/A Ratio: 1.05 RAP: 5.00 mmHg RVSP: 30.70 mmHg FINDINGS -------- Resting bradycardia (HR<60bpm). This was a technically adequate study. The left ventricular size is normal. There is moderate concentric left ventricular hypertrophy. O verall left ventricular systolic function is normal with, an EF between 60 - 65 %. The right ventricle is normal in size. LA is midly dilated 29-33ml/m2. The right atrium is normal in size. The aortic valve is trileaflet and appears structurally normal. Mild mitral annular calcification present. There is trace mitral regurgitation. Mild tricuspid regurgitation present. Right ventricular systolic pressure is normal at < 35 mmHg. Trace/mild (physiologic) pulmonic regurgitation. The aortic root size is normal. IVC Not well visulized. There is no pericardial effusion. CONCLUSIONS -------- 1. Resting bradycardia (HR<60bpm). 2. This was a technically adequate study. 3. The left ventricular size is normal. 4. There is moderate concentric left ventricular hypertrophy. 5. Overall left ventricular systolic function is normal with, an EF between 60 - 65 %. 6. The right ventricle is normal in size. 7. LA is midly dilated 29-33ml/m2. 8. The right atrium is normal in size. 9. The aortic valve is trileaflet and appears structurally normal. 10. Mild mitral annular calcification present. 11. There is trace mitral regurgitation. 12. Mild tricuspid regurgitation present. 13. Right ventricular systolic pressure is normal at < 35 mmHg. 14. Trace/mild (physiologic) pulmonic regurgitation. 15. The aortic root size is normal. 16. IVC Not well visulized. 17. There is no pericardial effusion. GAS METER CHECKER: Cindy Tariq RDCS
--- NOTE | 2018-06-19 10:01 | P.CRDCN ---
History of Present Illness History of present illness: This is a pleasant 73-year-old male past medical history significant for coronary artery disease status post inferior wall AL and subsequent PCI of the circumflex artery in 2007, hypertension, dyslipidemia and obesity. He follows in the office with Dr. Rojas. We've been asked to see him in consultation for symptoms of chest discomfort he states since Sunday he has felt a tightness in his chest off and on with radiation to the left shoulder. There is no radiation to the arm, back, neck or jaw. He has no shorness of breath, dizziness, nausea, vomiting, diaphoresis or palpitations. He has been taking SL nitro at home and achieved some relief of the pain. He is seen and examined laying flat in bed in no acute distress. He has no further symptoms of chest pain at this time. EKG reveals sinus bradycardia heart rate [address] or T wave abnormalities noted. Chest x-ray is negative for an acute cardiopulmonary process. Laboratory data reviewed, WBC 6, hemoglobin 14.5, platelets 1:30, sodium 140, potassium 4.5, creatinine 0.89, magnesium 2.3, cardiac enzymes negative 3, LDL 37. Current cardiac medications include Cardura 4 mg daily, atenolol 50 mg daily, isosorbide mononitrate 20 mg twice a day and simvastatin 20 mg daily. Most recent echocardiogram March 2017 reveals ejection fraction 50% with inferior wall hypokinesia. Most recent stress test performed 2014 was a dobutamine stress echocardiogram that revealed evidence of an old inferior AL with some sunitha-infarct ischemia noted. Maximum medical therapy was recommended at that time. Most recent cardiac catheterization performed in 2007. At that time the patient underwent PCI and stenting of the mid circumflex coronary artery with a bare metal stent. Prior to that he had a known occlusion to the RCA, moderate noncritical disease in the LAD which supplies most of the myocardium. At the time of my exam: CONSTITUTIONAL: Denies fever. Denies chills. EYES: Denies blurred vision. Denies vision changes. Denies eye pain. EARS, NOSE, MOUTH & THROAT: Denies headache. Denies sore throat. Denies ear pain. CARDIOVASCULAR: Denies chest pain. Denies shortness of breath. Denies orthopnea. Denies PND. Denies palpitations. RESPIRATORY: Denies cough. GASTROINTESTINAL: Denies abdominal pain. Denies diarrhea. Denies constipation. Denies nausea. Denies vomiting. MUSCULOSKELETAL: Denies myalgias. INTEGUMENTARY: Denies pruitis. Denies rash. NEUROLOGIC: Denies numbness. Denies tingling. Denies weakness. PSYCHIATRIC: Denies anxiety. Denies depression. ENDOCRINE: Denies fatigue. Denies weight change. Denies polydipsia. Denies polyurina. GENITOURINARY: Denies burning, hematuria or urgency with micturation. HEMATOLOGIC: Denies history of anemia. Denies bleeding. Blood pressure 133/79 heart rate 52 afebrile maintaining oxygen saturation on room air GENERAL: This is a 73-year-old male in no apparent distress at the time of my examination. Obese. HEENT: Head is atraumatic, normocephalic. Pupils are equal, round. Sclerae anicteric. Conjunctivae are clear. Mucous membranes of the mouth are moist. Neck is supple. There is no jugular venous distention. No carotid bruit is heard. LUNGS: Clear to auscultation no wheezes, rales or rhonchi. No chest wall tenderness is noted on palpation or with deep breathing. HEART: Regular rate and rhythm with systolic ejection murmur at the base, no rubs or gallops. S1 and S2 heard. ABDOMEN: Soft, nontender. Bowel sounds are heard. No organomegaly noted. EXTREMITIES: No evidence of peripheral edema and no calf tenderness noted. VASCULAR: Radial and dorsalis pedis pulses palpated, no evidence of clubbing. NEUROLOGIC: Patient is awake, alert and oriented x3. ASSESSMENT Unstable angina, known history of CAD. History of coronary artery disease s/p inferior wall AL with LEAD DESIGNER of RCA and PCI to mid-circumflex with mild irregularity of LAD in 2008 Hypertension Dyslipidemia Obesity, BMI 36 PLAN Symptoms are concerning for unstable angina and suspect progression of his coronary artery disease. Recommend proceeding with coronary angiography to further assess. I have discussed the risks, benefits and alternative therapies for the above-mentioned procedure and for both sedation/analgesia as well as necessary blood product administration, if indicated, as they pertain to this patient. The patient has indicated understanding and acceptance of the risks and procedures discussed. Questions have been answered appropriately and he is agreeable to move forward with above stated procedure. This has been boarded with his primary fire protection designer Dr. Rojas for this morning. Obtain 2D echocardiogram and doppler study to assess cardiac structure and function. Further recommendations to follow based on clinical course. Thank you kindly for this consultation. Nurse Practitioner note has been reviewed, I agree with a documented findings and plan of care. Patient was seen and examined. Past Medical History Past Medical History: Chest Pain / Angina, CVA/TIA, Hearing Disorder / Deafness , Hypertension, Myocardial Infarction (AL) Additional Past Medical History / Comment(s): Patient states he has had stents and heart cath but unsure of the date and how many stents. pt thinsk about 2 stents. TIA. [place]. Last Myocardial Infarction Date:: 1990 History of Any Multi-Drug Resistant Organisms: None Reported Past Surgical History: Heart Catheterization With Stent, Tonsillectomy Additional Past Surgical History / Comment(s): VASECTOMY Past Anesthesia/Blood Transfusion Reactions: No Reported Reaction Date of Last Stent Placement:: unknown Past Psychological History: No Psychological Hx Reported Smoking Status: Never smoker Past Alcohol Use History: None Reported Additional Past Alcohol Use History / Comment(s): STARTED SMOKING AT 14 QUIT AT AGE 16 SMOKED 1/2PPD OR A PIPE Past Drug Use History: None Reported - Past Family History Father Family Medical History: Myocardial Infarction (AL) Additional Family Medical History / Comment(s): Father at 52 from AL Mother Family Medical History: Cancer Additional Family Medical History / Comment(s): SKIN CANCER Medications and Allergies Home Medications Medication Instructions Recorded Confirmed Type Isosorbide Mononitrate [Ismo] 20 mg PO BID 08/29/14 06/18/18 History Niacin [Niacin ER] 1,000 mg PO HS 08/29/14 06/18/18 History Simvastatin [Zocor] 20 mg PO DAILY 08/29/14 06/18/18 History Doxazosin [Cardura] 4 mg PO DAILY 05/02/16 06/18/18 History traMADol HCl [Ultram] 50 mg PO Q6H PRN #20 tab 05/03/16 06/18/18 Rx Atenolol [Tenormin] 50 mg PO DAILY 06/18/18 06/18/18 History Nystatin 100,000Unit/gm Cream 1 applic TOPICAL BID 06/18/18 06/18/18 History [Mycostatin Cream] tiZANidine HCL [Zanaflex] 4 mg PO BID 06/18/18 06/18/18 History Allergies Allergy/AdvReac Type Severity Reaction Status Date / Time latex Allergy Dyspnea Verified 06/18/18 15:59 Physical Exam Vitals: Vital Signs Temp Pulse Pulse Resp BP BP Pulse Ox 06/19/18 07:42 97.6 F 52 L 18 133/79 96 06/19/18 03:52 61 16 06/19/18 03:38 98.7 F 61 16 139/64 98 06/18/18 23:45 97.7 F 50 L 16 111/61 95 06/18/18 23:31 54 L 18 06/18/18 20:00 54 L 18 06/18/18 18:25 97.3 F L 54 L 18 165/81 97 06/18/18 17:30 147/78 06/18/18 17:00 51 L 14 138/74 98 06/18/18 16:30 61 15 137/70 96 06/18/18 16:00 150/82 06/18/18 15:30 139/70 06/18/18 15:08 97.5 F L 54 L 18 144/76 97 Intake and Output 06/18/18 06/19/18 06/19/18 22:59 06:59 14:59 Output Total 550 Balance -550 Output: Urine 550 Other: Voiding Method Toilet Toilet # Voids 1 Weight 105.233 kg Results 06/18/18 15:45 06/18/18 15:45 Cardiac Enzymes 06/18/18 06/18/18 06/18/18 Range/Units 15:45 15:45 23:09 AST 31 (17-59) U/L CK-MB (CK-2) 3.0 H 2.4 (0.0-2.4) ng/mL Troponin I <0.012 <0.012 (0.000-0.034) ng/mL 06/19/18 Range/Units 04:03 AST (17-59) U/L CK-MB (CK-2) 1.7 (0.0-2.4) ng/mL Troponin I <0.012 (0.000-0.034) ng/mL Coagulation 06/18/18 06/18/18 06/19/18 Range/Units 15:45 23:09 06:31 PT 11.1 (9.0-12.0) sec APTT 27.6 56.1 H 35.2 H (22.0-30.0) sec Lipids 06/19/18 Range/Units 04:03 Triglycerides 138 (<150) mg/dL Cholesterol 101 (<200) mg/dL HDL Cholesterol 36 L (40-60) mg/dL CBC 06/18/18 Range/Units 15:45 WBC 6.0 (3.8-10.6) k/uL RBC 4.56 (4.30-5.90) m/uL Hgb 14.5 (13.0-17.5) gm/dL Hct 42.5 (39.0-53.0) % Plt Count 130 L (150-450) k/uL Comprehensive Metabolic Panel 06/18/18 Range/Units 15:45 Sodium 140 (137-145) mmol/L Potassium 4.5 (3.5-5.1) mmol/L Chloride 106 (98-107) mmol/L Carbon Dioxide 26 (22-30) mmol/L BUN 18 (9-20) mg/dL Creatinine 0.89 (0.66-1.25) mg/dL Glucose 96 (74-99) mg/dL Calcium 9.3 (8.4-10.2) mg/dL AST 31 (17-59) U/L ALT 32 (21-72) U/L Alkaline Phosphatase 84 (38-126) U/L Total Protein 6.7 (6.3-8.2) g/dL Albumin 4.2 (3.5-5.0) g/dL Current Medications Generic Name Dose Route Start Last Admin Trade Name Freq PRN Reason Stop Dose Admin Aspirin 325 mg 06/19/18 09:00 Aspirin PO DAILY [facility] Atenolol 50 mg 06/19/18 09:00 Tenormin PO DAILY [facility] Atorvastatin Calcium 10 mg 06/19/18 09:00 Lipitor PO DAILY [facility] Doxazosin Mesylate 4 mg 06/19/18 09:00 Cardura PO DAILY [facility] Isosorbide Mononitrate 40 mg 06/19/18 09:00 Ismo PO BID@0900,1600 [facility] Niacin 1,000 mg 06/18/18 21:00 06/18/18 20:14 Niacin Tr PO 1,000 mg HS RICARDA Administration Nitroglycerin 0.4 mg 06/18/18 17:03 Nitrostat SUBLINGUAL Q5M PRN Chest Pain Nystatin 1 applic 02/12/19 21:00 06/18/18 20:15 Mycostatin Cream TOPICAL 1 applic BID RICARDA Administration Tizanidine HCl 4 mg 06/18/18 21:00 06/18/18 20:14 Zanaflex PO 4 mg BID RICARDA Administration Tramadol HCl 50 mg 06/18/18 18:44 Ultram PO Q6H PRN Pain/Discomfort Intake and Output 06/18/18 06/19/18 06/19/18 22:59 06:59 14:59 Output Total 550 Balance -550 Output: Urine 550 Other: Voiding Method Toilet Toilet # Voids 1 Weight 105.233 kg 06/18/18 15:45 06/18/18 15:45
[2018-06-19] MEDS ORDERED: VERAPAMIL 2.5 MG/ML 2 ML AMP ONE (10:12)
[2018-06-19] MEDS ORDERED: LIDOCAINE 1% INJ 10MG/ML (20 ML MDV) ONE (10:12)
[2018-06-19] MEDS ORDERED: HEPARIN SODIUM 1,000 UN/ML (10ML VL) ONE (10:12)
[2018-06-19] MEDS: MIDAZOLAM 2 MG/2 ML VIAL IVP ONE ×4 (10:20→11:47)
[2018-06-19] MEDS ORDERED: LIDOCAINE 1% (PF) 10 MG/ML (30 ML SDV) SQ ONE (10:26)
[2018-06-19] MEDS ORDERED: IV FLUID CONTINUATION 900 ML IV ONE (10:27)
[2018-06-19] MEDS ORDERED: VERAPAMIL SYRINGE (5 MG/10 ML) INTRAARTER ONE (10:28)
[2018-06-19] MEDS: HYDROmorphone 2 MG/ML 1 ML SYRINGE IVP ONE ×2 (10:48→11:47)
[2018-06-19] MEDS ORDERED: ceFAZolin IN SWFI 2 GM/20 ML SYRINGE IVP STA (11:23)
[2018-06-19] MEDS ORDERED: IOPAMIDOL-370 100ML BTL INJ ONE (11:51)
[2018-06-19] MEDS: NYSTATIN 100,000UNIT/GM CREAM 30 GM TUBE TOPICAL SCH ×2 (12:23→17:08)
[2018-06-19] MEDS: ISOSORBIDE MONONITRATE 20 MG TAB PO SCH ×2 (12:28→14:39)
[2018-06-19] MEDS: DOXAZOSIN 4 MG TAB PO SCH (12:28)
[2018-06-19] MEDS: tiZANidine 4 MG TAB PO SCH ×2 (12:28→17:08)
[2018-06-19] MEDS: ATENOLOL 50 MG TAB PO SCH (12:28)
[2018-06-19 16:44] LABS: HCT 37.3 % (39.0-53.0); HGB 12.4 gm/dL (13.0-17.5); MCH 31.7 pg (25.0-35.0); MCHC 33.3 g/dL (31.0-37.0); MCV 95.2 fL (80.0-100.0); Mean Platelet Volume 8.5; Platelet Count 113 k/uL (150-450); RBC 3.91 m/uL (4.30-5.90); RDW 13.9 % (11.5-15.5); WBC 6.2 k/uL (3.8-10.6)
[2018-06-19] MEDS: NIACIN TR 500 MG CAPLET PO SCH (17:08)
--- NOTE | 2018-06-19 20:31 | CC ---
CARDIAC CATHETERIZATION REPORT DATE OF SERVICE: 06/19/2018. PROCEDURE PERFORMED: Coronary angiography. PERFORMED BY: Dr. Sam Rojas. CLINICAL INFORMATION: Mr. Abelino Colon is a 72-year-old gentleman with a known history of prior inferior AR with known RCA occlusion that was discovered in the past. He also had stenting of circumflex performed in 2007. He came into the hospital with episode of chest pain suggestive angina and was advised coronary angiography after evaluation by Dr. Busch. Risks, benefits, options, rationale were explained in great detail to the patient. I advised that I will perform the procedure from the right radial approach. PROCEDURE NOTE: Under local anesthesia and strict aseptic precautions, a 6-Colombian introducer was placed in the right radial artery. There was some tortuosity in the radial artery just before the cubital fossa area and subsequently another area of tortuosity in the brachiocephalic area. However, with a Glidewire, I was able to negotiate this and I used a JL3.5 catheter. With this, I performed selective coronary angiography of the left coronary artery. I then exchanged over a regular wire and tried to advance a right Gui catheter, I had difficulty talking the catheter because of extreme tortuosity both in the radial as well as in the brachial and innominate area. I had a subselective injection of the RCA performed and then I could not could not advance the catheter any further. I noted that the catheter was twisted and coiled. I advanced the wire and gradually took the catheter out, but then there was a big loop on the catheter and I could not get it beyond the radial artery just in the forearm area. I struggled with this for a while and eventually requested help from Dr. Filipe Munguia. Dr. Munguia arrived and we then cut the existing 6-Colombian catheter and took the sheath out and slipped another long 5-Colombian Brite tip sheath and I was able to advance the sheath all the way to the loop in the right Gui catheter and with a stiff Amplatz wire, this loop was slowly straightened out and the catheter was taken out uneventfully. Dr. Munguia helped me in this part of the procedure. The catheter and sheath was then taken out and TR band applied uneventfully. Saturation in the fingers of the right hand was 94%. The patient had significant amount of discomfort when there was a loop in the radial artery and required some Dilaudid. Hemodynamically, he remained stable. Eventually the procedure was performed uneventfully. He had a subselective injection of the RCA, but that was a total occlusion which was known from before. Left system images were obtained. LV pressures were not obtained. CARDIAC CATHETERIZATION FINDINGS: LEFT MAIN CORONARY ARTERY: Short patent vessel. Mild calcification. No significant disease. Bifurcates into LAD and circumflex. LEFT ANTERIOR DESCENDING CORONARY ARTERY: Fair caliber vessel extends along the anterior wall, gives off a large septal branch proximally that runs almost the same distribution of the LAD and gives off secondary branches. LAD has about a 30% to 40% stenosis in multiple areas, but no critical stenosis is noted. The vessel eventually runs all the way to the apex supplying a sizable amount of myocardium. There are no critical lesions. There are no severe lesions. There are moderate diffuse areas of narrowing within the LAD system as well as in the septal system. LEFT POSTERIOR CIRCUMFLEX CORONARY ARTERY: This vessel was stented in 2007. Stented area in the proximal/midportion is widely patent with good flow. Distally the circumflex marginal gives off 2 branches and runs laterally supplying a fair amount of myocardium. There is about a 30% to 35% narrowing in the circumflex system. No significant disease and no evidence of any stenosis within the stented area. RIGHT CORONARY ARTERY: Very subselective injections were obtained on fluoroscopy. No significant clear-cut images were noted. However, this vessel is noted to be totally occluded. FINAL IMPRESSION: This patient has no significant disease at the site of previous stenting and circumflex. Left main and LAD do not have any significant disease. There are minor diffuse irregularities in the entire LAD system. RCA is known to be totally occluded, was seen on subselective injections. LV pressures were not obtained. RECOMMENDATION: I am recommending continued medical therapy with risk factor modification. I will keep the patient overnight, hydrate him and watch him closely. The radial site is very good with a decent pulse. He was sent to the room in a stable condition and findings were discussed with the patient's daughter and sister and [id number]. ANESTHESIA: Moderate conscious sedation time was about 69 minutes. Patient was administered Dilaudid, Versed and oxygen saturation, hemodynamics and EKG were monitored closely. Findings were discussed with the patient's family and also with Dr. Gallito Pham. MMODL / IJN: [id number] / MTDD
--- NOTE | 2018-06-19 22:46 | PN ---
PROGRESS NOTE DATE OF SERVICE: 06/19/2018. ATTENDING PHYSICIAN: Dr. Grady Pham. CHIEF COMPLAINT: Re-evaluation. HISTORY OF PRESENT ILLNESS: This 73-year-old gentleman was admitted to the hospital having presented to the ER with complaints of intermittent chest pain. The patient stated symptoms were similar to when he had his heart attack. The patient's cardiac enzymes have been negative. He has had no further chest pain since admission. He has been on anticoagulation with heparin and transdermal nitrates. I ordered a stress test, however, the emergency veterinarian saw the patient and took the patient for cardiac cath. Cardiac cath reveals stable coronary anatomy similar to the previous one. In view of this patient was recommended medical therapy. He was a difficult intubation in the right radial artery and thus the patient was kept overnight. REVIEW OF SYSTEMS: NEURO: Denies any headaches or dizziness. PSYCH: No anxiety. CARDIAC: No chest pain, angina, palpitation. RESPIRATORY: No shortness of breath or cough. GI: No nausea, vomiting, abdominal pain, diarrhea. : No symptoms of dysuria, hematuria, urgency, frequency. EXTREMITIES: Denies pain or edema. CONSTITUTIONAL: No fevers or chills. PHYSICAL EXAMINATION: GENERAL: Pleasant gentleman in no distress. VITAL SIGNS: Temperature 97.6, pulse 52, respirations 18, blood pressure 133/79, pulse ox 96% on room air. HEENT: Normocephalic. NECK: No JVD. CHEST: Clear to auscultation. CARDIAC: Normal S1, S2 with no gallop or murmurs. ABDOMEN: Soft. Bowel sounds present. EXTREMITIES: No edema. Good pulses both upper lower extremities. NEUROLOGIC: Awake, alert, oriented x3 with well-coordinated movements. LABORATORY ASSESSMENT: As mentioned above. Troponins x3 negative. CBC revealed a platelet count of 113, down from 130, hemoglobin 12.4, white count 6.2. Sodium 138, triglycerides 138, cholesterol 101, LDL 37, HDL 36. ASSESSMENT: 1. Chest pain, probable angina. 2. Stable coronary arthrosclerosis. 3. Hypertension. 4. Obesity. 5. Thrombocytopenia. PLAN: The patient is stable. Continue present medical regimen. Patient's condition is discussed with the patient. MMODL / IJN: [id number] /
[2018-06-20] MEDS: ATENOLOL 50 MG TAB PO SCH (08:56)
[2018-06-20] MEDS: DOXAZOSIN 4 MG TAB PO SCH (08:56)
[2018-06-20] MEDS: ASPIRIN 325 MG TAB PO SCH (08:56)
[2018-06-20] MEDS: ATORVASTATIN 10 MG TAB PO SCH (08:56)
[2018-06-20] MEDS: ISOSORBIDE MONONITRATE 20 MG TAB PO SCH (08:56)
[2018-06-20 08:58] VITALS: RESP 18
[2018-06-20] MEDS: NYSTATIN 100,000UNIT/GM CREAM 30 GM TUBE TOPICAL SCH (08:58)
--- NOTE | 2018-06-20 10:32 | P.PN ---
Subjective This is a pleasant 73-year-old male past medical history significant for coronary artery disease status post inferior wall RI and subsequent PCI of the circumflex artery in 2007, hypertension, dyslipidemia and obesity. He follows in the office with Dr. Rojas. He underwent cardiac catheterization yesterday revealing no significant disease at the previously stented segments, minor 30-35% stenosis of circumflex, RCA chronically occluded and no disease of the left main or LAD. There was some complications with the access site and Dr. Munguia assisted with removal of the sheath. He is seen and examined sitting up in bed in no acute distress. Right radial site is clean, dry and intact with a strong radial pulse with some discomfort noted to the right upper arm and shoulder per the patient. Blood pressure 171/78 heart rate 58 afebrile maintaining oxygen saturation on room air. Laboratory data reviewed, hgb 12.4, plt 113. GENERAL: This is a 73-year-old male in no apparent distress at the time of my examination. Obese. HEENT: Head is atraumatic, normocephalic. Pupils are equal, round. Sclerae anicteric. Conjunctivae are clear. Mucous membranes of the mouth are moist. Neck is supple. There is no jugular venous distention. No carotid bruit is heard. LUNGS: Clear to auscultation no wheezes, rales or rhonchi. No chest wall tenderness is noted on palpation or with deep breathing. HEART: Regular rate and rhythm with systolic ejection murmur at the base, no rubs or gallops. S1 and S2 heard. EXTREMITIES: No evidence of peripheral edema and no calf tenderness noted. Right radial pulse strong, no hemoatoma, ecchymosis or bleeding noted. ASSESSMENT Unstable angina, known history of CAD. 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 Follow up appointment made in the office with Dr. Rojas 07/01. Continue current medical regimen. Nurse Practitioner note has been reviewed, I agree with a documented findings and plan of care. Patient was seen and examined. Objective - Vital Signs Vital signs: Vital Signs Temp 97.9 F 06/20/18 08:00 Pulse 58 L 06/20/18 08:00 Resp 18 02/14/19 08:00 BP 171/78 06/20/18 08:00 Pulse Ox 95 06/20/18 08:00 Intake & Output 06/19/18 06/20/18 06/20/18 18:59 06:59 18:59 Intake Total 500 400 Output Total 1650 Balance 500 -1650 400 Intake: IV 300 Oral 200 400 Output: Urine 1650 Other: Voiding Method Toilet Toilet # Voids 1 - Labs CBC & Chem 7: 06/19/18 16:23 06/18/18 15:45 Labs: Abnormal Lab Results - Last 24 Hours (Table) 06/19/18 Range/Units 16:23 RBC 3.91 L (4.30-5.90) m/uL Hgb 12.4 L (13.0-17.5) gm/dL Hct 37.3 L (39.0-53.0) % Plt Count 113 L (150-450) k/uL
[2018-06-20] MEDS: tiZANidine 4 MG TAB PO SCH (12:12)
[2018-06-20 12:48] VITALS: BP 139/73; PULSE 57; TEMP 97.6
--- NOTE | 2018-06-26 16:38 | P.DS ---
Providers Date of admission: 06/18/18 17:03 Attending physician: Gallito Pham Consults: 06/18/18 17:03 Consult Physician Urgent Consulting Provider: [facility] Consult Reason/Comments: Unstable angina Do you want consulting provider notified?: Yes Primary care physician: Gallito Pham Hospital Course: This 73-year-old gentleman was admitted to the hospital with atypical chest pain. He has underlying history of coronary artery disease. Patient was admitted to the hospital in view of that EKG did not reveal any acute changes initial enzymes negative and subsequent serial cardiac enzymes were all negative. Patient was seen by cardiology. Stress test had been ordered however they elected to Cardiac catheterization. Cardiac cath revealed a short patent left main has mild calcifications and no significant disease. Left anterior descending was a fair caliber vessel branch LAD had about 30-40% stenosis in multiple areas but no critical stenoses noted there was some narrowing within the septal system. ( Circumflex coronary artery had been stented in 2007. Proximal and midportion was widely patent with good flow is about 30-35% narrowing of the circumflex system with no significant disease or evidence of any stenosis within the stented area. Right coronary artery revealed total occlusion not a new finding echocardiogram revealed normal left ventricular size with moderate concentric left ventricular hypertrophy with ejection fraction of 60-65% mildly dilated left atrium no significant valvular abnormality or significant regurgitation . Patient's general condition remained stable. He had significant tortuosity with radial brachial and the innominate artery. Because of this he had significant manipulation, and thus the patient was kept an extra night to monitor arterial puncture site Final diagnosis to include 1. Undetermined chest pain 2. Known coronary artery disease 3. Essential hypertension 4. Obesity 5. 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 Hyperlipidemia on medical therapy Patient Condition at Discharge: Stable Plan - Discharge Summary Discharge Rx Participant: No New Discharge Prescriptions: New Nitroglycerin Sl Tabs [Nitrostat] 0.4 mg SUBLINGUAL Q5M PRN tab PRN Reason: Chest Pain Continue Simvastatin [Zocor] 20 mg PO DAILY Isosorbide Mononitrate [Ismo] 20 mg PO BID Niacin [Niacin ER] 1,000 mg PO HS Doxazosin [Cardura] 4 mg PO DAILY traMADol HCl [Ultram] 50 mg PO Q6H PRN #20 tab PRN Reason: Pain/Discomfort Atenolol [Tenormin] 50 mg PO DAILY tiZANidine HCL [Zanaflex] 4 mg PO BID Nystatin 100,000Unit/gm Cream [Mycostatin Cream] 1 applic TOPICAL BID Discharge Medication List Isosorbide Mononitrate [Ismo] 20 mg PO BID 08/29/14 [History] Niacin [Niacin ER] 1,000 mg PO HS 08/29/14 [History] Simvastatin [Zocor] 20 mg PO DAILY 08/29/14 [History] Doxazosin [Cardura] 4 mg PO DAILY 05/02/16 [History] traMADol HCl [Ultram] 50 mg PO Q6H PRN #20 tab 05/03/16 [Rx] Atenolol [Tenormin] 50 mg PO DAILY 06/18/18 [History] Nystatin 100,000Unit/gm Cream [Mycostatin Cream] 1 applic TOPICAL BID 06/18/18 [ History] tiZANidine HCL [Zanaflex] 4 mg PO BID 06/18/18 [History] Nitroglycerin Sl Tabs [Nitrostat] 0.4 mg SUBLINGUAL Q5M PRN tab 06/20/18 [Rx] Follow up Appointment(s)/Referral(s): Gallito Pham MD [Primary Care Provider] - 1-2 days Radhika Rojas MD [STAFF PHYSICIAN] - 07/01/18 9:45 am Discharge Disposition: HOME SELF-CARE
== END 2018-06-20 14:15 | disposition home or self-care (01) ==
LOC: EC 15:04 → 1SOBS 17:03
PROVIDERS: ADMIT Internal Medicine; ATTEND Internal Medicine
DX: I25.110 Atherosclerotic heart disease of native coronary artery with unstable angina pectoris (principal); I25.82 Chronic total occlusion of coronary artery; E78.5 Hyperlipidemia, unspecified; I25.2 Old myocardial infarction; I10 Essential (primary) hypertension; D69.6 Thrombocytopenia, unspecified; E78.00 Pure hypercholesterolemia, unspecified; N40.0 Benign prostatic hyperplasia without lower urinary tract symptoms; E66.9 Obesity, unspecified; Z68.36 Body mass index [BMI] 36.0-36.9, adult; Z95.5 Presence of coronary angioplasty implant and graft; Z79.899 Other long term (current) drug therapy; Z91.040 Latex allergy status; Z86.73 Personal history of transient ischemic attack (TIA), and cerebral infarction without residual deficits; Z98.52 Vasectomy status; Z87.442 Personal history of urinary calculi; Z87.891 Personal history of nicotine dependence; Z80.8 Family history of malignant neoplasm of other organs or systems; Z82.49 Family history of ischemic heart disease and other diseases of the circulatory system; Z81.0 Family history of intellectual disabilities
CPT/HCPCS: 99152; 99153 ×3; 96366 ×2; 96376; 96361; 96365; 99291; 36415; 93005; 93306; 93454; 80061; 80053; 82550 ×2; 82553 ×2; 83735; 84484 ×2; 85025; 85027; 85610; 85730 ×2; 71046; G0378 ×3; C1769 ×4; C1894 ×3; J2250; J1170; J1644 ×3; J2001; J0690; Q9967

== ENCOUNTER → 2018-11-28 | Outpatient (CLI) | payer MEDICARE ==
[2018-11-28 12:03] LABS: Basophils % (A) 0 %; Eosinophils # (A) 0.2 k/uL (0-0.7); Eosinophils % (A) 2 %; HGB 14.8 gm/dL (13.0-17.5); Lymphocytes # (A) 1.1 k/uL (1.0-4.8); Lymphocytes % (A) 15 %; MCH 30.8 pg (25.0-35.0); MCHC 32.8 g/dL (31.0-37.0); Monocytes # (A) 0.3 k/uL (0-1.0); Monocytes % (A) 4 %; Neutrophils # (A) 5.5 k/uL (1.3-7.7); Neutrophils % (A) 77 %; Platelet Count 134 k/uL (150-450); RBC 4.79 m/uL (4.30-5.90); RDW 14.2 % (11.5-15.5); WBC 7.2 k/uL (3.8-10.6)
[2018-11-28 16:13] LABS: LDL Cholesterol,Calculated 53.8 mg/dL (0.0-131.0); VLDL Calculation 21.2 mg/dL (5.00-40.00)
== END | disposition home or self-care (01) ==
LOC: LABWHC1 10:39
PROVIDERS: ATTEND Nurse Practitioner Adult Health
DX: N40.0 Benign prostatic hyperplasia without lower urinary tract symptoms (principal); I71.4 Abdominal aortic aneurysm, without rupture; E66.9 Obesity, unspecified; I10 Essential (primary) hypertension; E78.5 Hyperlipidemia, unspecified; Z12.5 Encounter for screening for malignant neoplasm of prostate
CPT/HCPCS: 80061; 85025; 36415; G0103

== ENCOUNTER 2019-01-01 21:22 | Emergency (ER) | payer MEDICARE ==
[2019-01-01 21:59] VITALS: BP 129/70; PULSE 50; RESP 18; TEMP 98.1
[2019-01-01] MEDS ORDERED: CEPHALEXIN 500MG STARTER PACK 4 CAP BTL PO STA (22:31)
[2019-01-01] MEDS ORDERED: ACETAMINOPHEN TAB 500 MG TAB PO STA (22:31)
[2019-01-01] MEDS ORDERED: DIPH,PERTUS(ACELL)TETVAC-LF 0.5 ML VIAL IM ONE (22:32)
--- NOTE | 2019-01-01 22:40 | ED ---
Wound/Laceration HPI - General Chief Complaint: Wound/Laceration Stated Complaint: Right arm injury Time Seen by Provider: 01/01/19 22:09 Source: patient Mode of arrival: ambulatory Limitations: no limitations - History of Present Illness Initial Comments: 73-year-old male patient presents to the emergency department today for evaluation of wounds to the right forearm. Patient states approximately 2 hours ago he was playing with his daughter's dogs when the dog scratched him. Patient states he did cleanse the wound using water and peroxide. Patient presents here for evaluation due to concerns of developing an infection and not having a tetanus vaccine. Patient denies any difficulty with range of motion or pain with movement of the arm. He is unsure when his last tetanus vaccine was administered. Denies use of any anticoagulants or antiplatelet medications. Denies any other injuries.Patient denies any headache, neck pain, back pain, concha st pain, shortness of breath, dizziness, weakness, abdominal pain, nausea, vomiting, or difficulties with bowel movements or urination. - Related Data Home Medications Medication Instructions Recorded Confirmed Isosorbide Mononitrate [Ismo] 20 mg PO BID 08/29/14 06/18/18 Niacin [Niacin ER] 1,000 mg PO HS 08/29/14 06/18/18 Simvastatin [Zocor] 20 mg PO DAILY 08/29/14 06/18/18 Doxazosin [Cardura] 4 mg PO DAILY 05/02/16 06/18/18 Atenolol [Tenormin] 50 mg PO DAILY 06/18/18 06/18/18 Nystatin 100,000Unit/gm Cream 1 applic TOPICAL BID 06/18/18 06/18/18 [Mycostatin Cream] tiZANidine HCL [Zanaflex] 4 mg PO BID 06/18/18 06/18/18 Previous Rx's Medication Instructions Recorded traMADol HCl [Ultram] 50 mg PO Q6H PRN #20 tab 05/03/16 Nitroglycerin Sl Tabs [Nitrostat] 0.4 mg SUBLINGUAL Q5M PRN tab 06/20/18 Cephalexin [Keflex] 500 mg PO Q8H #21 cap 01/01/19 Allergies Allergy/AdvReac Type Severity Reaction Status Date / Time latex Allergy Dyspnea Verified 01/01/19 21:59 Review of Systems ROS Statement: Those systems with pertinent positive or pertinent negative responses have been documented in the HPI. ROS Other: All systems not noted in ROS Statement are negative. Past Medical History Past Medical History: Chest Pain / Angina, CVA/TIA, Hearing Disorder / Deafness, Hypertension, Myocardial Infarction ([place]) Additional Past Medical History / Comment(s): Patient states he has had stents and heart cath but unsure of the date and how many stents. pt thinsk about 2 stents. TIA. [place]. Last Myocardial Infarction Date:: 1990 History of Any Multi-Drug Resistant Organisms: None Reported Past Surgical History: Heart Catheterization With Stent, Tonsillectomy Additional Past Surgical History / Comment(s): VASECTOMY Past Anesthesia/Blood Transfusion Reactions: No Reported Reaction Date of Last Stent Placement:: unknown Past Psychological History: No Psychological Hx Reported Smoking Status: Never smoker Past Alcohol Use History: None Reported Past Drug Use History: None Reported - Past Family History Father Family Medical History: Myocardial Infarction ([place]) Additional Family Medical History / Comment(s): Father at 52 from [place] Mother Family Medical History: Cancer Additional Family Medical History / Comment(s): SKIN CANCER General Exam Limitations: no limitations General appearance: alert, in no apparent distress, other (This is a well- developed, well-nourished adult male patient in no acute distress. Vital signs upon presentation are temperature 98.1F, pulse 50, respirations 18, blood pressure 129/70, pulse ox 97% on room air.) Eye exam: Present: normal appearance, PERRL, EOMI. Absent: scleral icterus, conjunctival injection, periorbital swelling ENT exam: Present: normal exam, normal oropharynx, mucous membranes moist Respiratory exam: Present: normal lung sounds bilaterally. Absent: respiratory distress, wheezes, rales, rhonchi, stridor Cardiovascular Exam: Present: regular rate, normal rhythm, normal heart sounds. Absent: systolic murmur, diastolic murmur, rubs, gallop, clicks Extremities exam: Present: normal inspection, full ROM, normal capillary refill, other (Right forearm exhibits three linear abrasions. No active bleeding. There is surrounding ecchymosis. skin is otherwise pink, warm, and dry. Cap refills less than 3 seconds. Radial pulses 2+ and equal bilaterally.). Absent: tenderness, pedal edema, joint swelling, calf tenderness Neurological exam: Present: alert, oriented X3, CN II-XII intact Psychiatric exam: Present: normal affect, normal mood Skin exam: Present: warm, dry, intact, normal color. Absent: rash Course Vital Signs 01/01/19 21:55 Temperature 98.1 F Pulse Rate 50 L Respiratory 18 Rate Blood Pressure 129/70 O2 Sat by Pulse 97 Oximetry Medical Decision Making - Medical Decision Making 73-year-old male patient presents to the emergency department today for evaluation of wounds to the right forearm caused by a dog scratching him. Physical examination did reveal 3 linear abrasions to the right forearm with surrounding ecchymosis. Wounds were cleansed by nursing staff and bacitracin applied. Patient was updated on his tetanus vaccine. He was given pain medication and started on Keflex for prevention of infection. He is instructed to follow-up with his primary care physician for recheck in 1-2 days. Return parameters were discussed in detail. He verbalizes understanding and agrees with this plan. Disposition Clinical Impression: Abrasion of right forearm, Traumatic ecchymosis of right forearm Disposition: HOME SELF-CARE Condition: Good Instructions (If sedation given, give patient instructions): Acute Wound Care (ED), Abrasion (ED) Additional Instructions: Cleanse wounds twice daily with warm water and antibacterial soap. Apply bacitracin or Neosporin ointment. Complete antibiotic prescription in full. Follow-up with your primary care physician for recheck of the area in 1-2 days. Return to the emergency department immediately for any new, worsening, or concerning symptoms. Your antibiotic prescription was sent to [facility] in [place]. Prescriptions: Cephalexin [Keflex] 500 mg PO Q8H #21 cap Is patient prescribed a controlled substance at d/c from ED?: No Referrals: Logan Trejo MD [Primary Care Provider] - 1-2 days Time of Disposition: 22:40
== END 2019-01-01 22:56 | disposition home or self-care (01) ==
LOC: EC 21:22
DX: S50.11XA Contusion of right forearm, initial encounter (principal); S50.811A Abrasion of right forearm, initial encounter; I25.2 Old myocardial infarction; I10 Essential (primary) hypertension; H91.90 Unspecified hearing loss, unspecified ear; Z23 Encounter for immunization; Z79.899 Other long term (current) drug therapy; Z91.040 Latex allergy status; Z95.5 Presence of coronary angioplasty implant and graft; Z86.73 Personal history of transient ischemic attack (TIA), and cerebral infarction without residual deficits; W54.8XXA Other contact with dog, initial encounter; Y93.89 Activity, other specified
CPT/HCPCS: 90471; 90715; 99283

== ENCOUNTER → 2019-12-17 | Outpatient (CLI) | payer MEDICARE ==
[2019-12-17 19:28] LABS: Chol/HDL Ratio 2.7; LDL Cholesterol,Calculated 47.6 mg/dL (0.0-131.0); VLDL Calculation 15.4 mg/dL (5.00-40.00)
== END | disposition home or self-care (01) ==
LOC: LABWHC1 10:53
PROVIDERS: ATTEND Internal Medicine Interventional Cardiology
DX: E78.5 Hyperlipidemia, unspecified (principal); I25.10 Atherosclerotic heart disease of native coronary artery without angina pectoris
CPT/HCPCS: 36415; 80061; 82550; 84450; 84460

== ENCOUNTER → 2020-12-18 | Outpatient (CLI) | payer MEDICARE ==
[2020-12-18 16:58] LABS: Basophils # (A) 0.05 X 10*3/uL (0.00-0.10); Basophils % (A) 0.7 %; Eosinophils # (A) 0.18 X 10*3/uL (0.04-0.35); Eosinophils % (A) 2.6 %; HCT 42.6 % (39.6-50.0); HGB 14.1 g/dL (13.0-17.0); Lymphocytes # (A) 0.93 X 10*3/uL (0.90-5.00); Lymphocytes % (A) 13.7 %; MCH 32.7 pg (27.0-32.0); MCHC 33.1 g/dL (32.0-37.0); MCV 98.8 fL (80.0-97.0); Mean Platelet Volume 12.1 fL (9.5-12.2); Monocytes # (A) 0.49 X 10*3/uL (0.20-1.00); Monocytes % (A) 7.2 %; Neutrophils # (A) 5.15 X 10*3/uL (1.80-7.70); Neutrophils % (A) 75.7 %; Platelet Count 138 X 10*3/uL (140-440); RBC 4.31 X 10*6/uL (4.40-5.60); RDW 13.7 % (11.5-14.5); WBC 6.81 X 10*3/uL (4.50-10.00)
[2020-12-18 17:30] LABS: African American GFR (CKD) 83.8 (60.0-200.0); Albumin 4.5 g/dL (3.80-4.90); Albumin/Globulin Ratio 2.25 (1.60-3.17); Anion Gap 5.8 mmol/L (4.00-12.00); Calcium 9.1 mg/dL (8.7-10.3); Carbon Dioxide 30.2 mmol/L (21.6-31.8); Chol/HDL Ratio 2.9; LDL Cholesterol,Calculated 57.2 mg/dL (0.0-131.0); Non-African American GFR(CKD) 72.3 (60.0-200.0); Potassium 4.4 mmol/L (3.5-5.5); Total Bilirubin 1.1 mg/dL (0.3-1.2); Total Protein 6.5 g/dL (6.2-8.2); VLDL Calculation 20.8 mg/dL (5.00-40.00)
[2020-12-18 17:38] LABS: Prostate Specific Antigen 4.7 ng/mL (0.0-6.5)
== END | disposition home or self-care (01) ==
LOC: LABWHC1 10:38
PROVIDERS: ATTEND Internal Medicine
DX: N20.0 Calculus of kidney (principal); N40.0 Benign prostatic hyperplasia without lower urinary tract symptoms; I25.10 Atherosclerotic heart disease of native coronary artery without angina pectoris
CPT/HCPCS: 36415; 80053; 80061; 82306; 84153; 84443; 85025

== ENCOUNTER 2021-01-05 17:05 | Observation (INO) | payer MEDICARE ==
[2021-01-05] MEDS ORDERED: SODIUM CHLORIDE 0.9% 1,000 ML IV STA (17:31)
[2021-01-05] MEDS ORDERED: KETOROLAC 15 MG/ML 1 ML VIAL IVP STA (17:31)
[2021-01-05] MEDS ORDERED: ONDANSETRON 4 MG/2 ML VIAL IVP STA (17:31)
[2021-01-05] MEDS ORDERED: diphenhydrAMINE 50 MG/ML 1 ML VIAL IVP STA (17:31)
--- NOTE | 2021-01-05 17:34 | ED ---
General Adult HPI - General Chief complaint: Recheck/Abnormal Lab/Rx Stated complaint: palpitations, blurred vision Time Seen by Provider: 01/05/21 17:20 Source: patient Mode of arrival: wheelchair Limitations: no limitations - History of Present Illness Initial comments: Dictation was produced using [employer] dictation software. please excuse any gra mmatical, word or spelling errors. Chief Complaint: 75-year-old male presents with episode of tinnitus, double vision and now headache. History of Present Illness: Patient is a 75-year-old male he has multiple comorbidities. Patient states he did not take some of his medications recently. States that he is feeling weak throughout his entire body. He states earlier today he had an episode that last for several minutes of ears ringing, double vision and fatigue. States the symptoms are resolved on its own. Now he complains of a mild headache. Patient states that this headache is mild. He has a history of headaches that he reports is from chronic neck pain. Denies any numbness and paresthesias to the arms or legs. Denies vision changes. The ROS documented in this emergency department record has been reviewed and confirmed by me. Those systems with pertinent positive or negative responses have been documented in the HPI. All other systems are other negative and/or noncontributory. PHYSICAL EXAM: General Impression: Alert and oriented x3, not in acute distress HEENT: Normocephalic atraumatic, extra-ocular movements intact, pupils equal and reactive to light bilaterally, mucous membranes moist. Cardiovascular: Heart regular rate and rhythm Chest: Able to complete full sentences, no retractions, no tachypnea Abdomen: abdomen soft, non-tender, non-distended, no organomegaly Musculoskeletal: Pulses present and equal in all extremities, no peripheral edema Motor: no focal deficits noted Neurological: CN II-XII grossly intact, no focal motor or sensory deficits noted Skin: Intact with no visualized rashes Psych: Normal affect and mood ED course: 75-year-old well-appearing male presents to the emergency department for episode of ears ringing, double vision and generalized weakness. States that the symptoms resolved and now he has headache. Discussed the headache is mild. Denies any thunderclap or severe. Vital signs upon arrival are within ac ceptable limits. Laboratory evaluation obtained. CBC, coag panel, metabolic panel is unremarkable. Patient's heart rate began to decrease into the low 40s. Patient denies any history of bradycardia. Patient appears to be on several medications which may cause bradycardia but did not take them today. He does appear to be stable at bedside with normal blood pressure. Patient is agreeable for observation admission for cardiac monitoring with cardiology consultation. No obvious cause for his bradycardia. EKG interpretation: Ventricular rate 49, sinus bradycardia, MS interval 188, QRS 90, QTC 395. No MS prolongation, no QTC prolongation, no ST or T-wave changes noted. EKG compared to 06/18/2018 showing no changes. Overall, this EKG is unremarkable - Related Data Home Medications Medication Instructions Recorded Confirmed Isosorbide Mononitrate [Ismo] 20 mg PO BID 08/29/14 01/05/21 Niacin [Niacin ER] 1,000 mg PO HS 08/29/14 01/05/21 Simvastatin [Zocor] 20 mg PO DAILY 08/29/14 01/05/21 Doxazosin [Cardura] 4 mg PO DAILY 05/02/16 01/05/21 tiZANidine HCL [Zanaflex] 4 mg PO TID PRN 06/18/18 01/05/21 Aspirin [Adult Low Dose Aspirin EC] 81 mg PO HS 01/05/21 01/05/21 Naproxen 500 mg PO BID 01/05/21 01/05/21 Vitamin B Complex 1 cap PO DAILY 01/05/21 01/05/21 atenoloL [Tenormin] 25 mg PO BID 01/05/21 01/05/21 Allergies Allergy/AdvReac Type Severity Reaction Status Date / Time latex Allergy Dyspnea Verified 01/05/21 17:42 Review of Systems ROS Statement: Those systems with pertinent positive or pertinent negative responses have been documented in the HPI. ROS Other: All systems not noted in ROS Statement are negative. Past Medical History Past Medical History: Chest Pain / Angina, CVA/TIA, Hearing Disorder / Deafness, Hypertension, Myocardial Infarction ([place]) Additional Past Medical History / Comment(s): Patient states he has had stents and heart cath but unsure of the date and how many stents. pt thinsk about 2 stents. TIA. [place]. Last Myocardial Infarction Date:: 1990 History of Any Multi-Drug Resistant Organisms: None Reported Past Surgical History: Heart Catheterization With Stent, Tonsillectomy Additional Past Surgical History / Comment(s): VASECTOMY Past Anesthesia/Blood Transfusion Reactions: No Reported Reaction Date of Last Stent Placement:: unknown Past Psychological History: No Psychological Hx Reported Smoking Status: Never smoker Past Alcohol Use History: None Reported Past Drug Use History: None Reported - Past Family History Father Family Medical History: Myocardial Infarction ([place]) Additional Family Medical History / Comment(s): Father at 52 from [place] Mother Family Medical History: Cancer Additional Family Medical History / Comment(s): SKIN CANCER General Exam Limitations: no limitations Course Vital Signs 01/05/21 01/05/21 01/05/21 17:15 18:00 18:30 Temperature 97.7 F Pulse Rate 50 L 44 L 47 L Respiratory 20 14 15 Rate Blood Pressure 100/56 103/58 115/59 O2 Sat by Pulse 100 98 Oximetry Medical Decision Making - Lab Data Result diagrams: 01/05/21 17:38 01/05/21 17:38 Lab Results 01/05/21 01/05/21 01/05/21 Range/Units 17:38 17:38 17:38 WBC 6.4 (3.8-10.6) k/uL RBC 4.22 L (4.30-5.90) m/uL Hgb 14.4 (13.0-17.5) gm/dL Hct 41.4 (39.0-53.0) % MCV 98.2 (80.0-100.0) fL MCH 34.2 (25.0-35.0) pg MCHC 34.8 (31.0-37.0) g/dL RDW 14.3 (11.5-15.5) % Plt Count 160 (150-450) k/uL MPV 8.4 Neutrophils % 76 % Lymphocytes % 13 % Monocytes % 6 % Eosinophils % 3 % Basophils % 1 % Neutrophils # 4.8 (1.3-7.7) k/uL Lymphocytes # 0.9 L (1.0-4.8) k/uL Monocytes # 0.4 (0-1.0) k/uL Eosinophils # 0.2 (0-0.7) k/uL Basophils # 0.0 (0-0.2) k/uL PT 11.2 (9.0-12.0) sec INR 1.1 (<1.2) APTT 26.9 (22.0-30.0) sec Sodium 138 (137-145) mmol/L Potassium 4.1 (3.5-5.1) mmol/L Chloride 106 (98-107) mmol/L Carbon Dioxide 27 (22-30) mmol/L Anion Gap 5 mmol/L BUN 19 (9-20) mg/dL Creatinine 0.74 (0.66-1.25) mg/dL Est GFR (CKD-EPI)AfAm >90 (>60 ml/min/1.73 sqM) Est GFR (CKD-EPI)NonAf 89 (>60 ml/min/1.73 sqM) Glucose 124 H (74-99) mg/dL Calcium 8.9 (8.4-10.2) mg/dL Magnesium 2.4 H (1.6-2.3) mg/dL Disposition Clinical Impression: Bradycardia Disposition: ADMITTED IP TO THIS HOSP Condition: Fair Referrals: Kristian Huitron MD [Primary Care Provider] - 1-2 days
[2021-01-05 17:54] LABS: Basophils % (A) 1 %; Eosinophils # (A) 0.2 k/uL (0-0.7); Eosinophils % (A) 3 %; HCT 41.4 % (39.0-53.0); HGB 14.4 gm/dL (13.0-17.5); Lymphocytes # (A) 0.9 k/uL (1.0-4.8); Lymphocytes % (A) 13 %; MCH 34.2 pg (25.0-35.0); MCHC 34.8 g/dL (31.0-37.0); MCV 98.2 fL (80.0-100.0); Mean Platelet Volume 8.4; Monocytes # (A) 0.4 k/uL (0-1.0); Monocytes % (A) 6 %; Neutrophils # (A) 4.8 k/uL (1.3-7.7); Neutrophils % (A) 76 %; Platelet Count 160 k/uL (150-450); RBC 4.22 m/uL (4.30-5.90); RDW 14.3 % (11.5-15.5); WBC 6.4 k/uL (3.8-10.6)
[2021-01-05 18:05] LABS: African American GFR (CKD) >90 (>60 ml/min/1.73 sqM); Anion Gap 5 mmol/L; Blood Urea Nitrogen 19 mg/dL (9-20); Calcium 8.9 mg/dL (8.4-10.2); Carbon Dioxide 27 mmol/L (22-30); Chloride 106 mmol/L (98-107); Glucose 124 mg/dL (74-99); Magnesium 2.4 mg/dL (1.6-2.3); Non-African American GFR(CKD) 89 (>60 ml/min/1.73 sqM); Potassium 4.1 mmol/L (3.5-5.1); Sodium 138 mmol/L (137-145)
[2021-01-05 18:06] LABS: INR 1.1 (<1.2); Partial Thromboplastin Time 26.9 sec (22.0-30.0); Prothrombin Time 11.2 sec (9.0-12.0)
[2021-01-05] MEDS ORDERED: NALOXONE 0.4 MG/ML 1 ML VIAL IV PRN (19:24)
[2021-01-05] MEDS: SODIUM CHLORIDE 0.9% 1,000 ML IV SCH (19:58)
--- NOTE | 2021-01-05 21:08 | P.HPIM ---
History of Present Illness H&P Date: 01/05/21 The patient is a 75-year-old male with a PMH of coronary artery disease status post multiple stents, hypertension, hyperlipidemia, hearing impairment (uses hearing aids) who presented to the emergency room with complaints of lightheadedness, double vision, and ringing in his ears. Patient reports that he initially had an episode of the above symptoms roughly 2 days ago, when he was sitting down at the edge of the hall. He did not think much of his symptoms, which resolved within 5 minutes, at which time he drove home uneventfully. The patient notes that he again had his symptoms earlier today at around 4 PM, starting with double vision and lightheadedness and then developing some ringing in his ears and feeling as though he was to faint. She told his daughter who subsequently activated EMS. He reported that his symptoms largely resolved at the time he arrived at the emergency room but that he then felt fatigued and developed a headache. He reports that the headache had subsequent ly resolved by the time of evaluation. At time of interview, she reported feeling almost back to his baseline except for the fatigue. He denied experiencing unilateral weakness, slurring of speech, numbness, or tingling. Also denied chest pain, shortness of breath, nausea, vomiting, diaphoresis. Denied fever, chills, cough. In the emergency room, the patient was noted to be bradycardic with a pulse low of 44. Patient reported that although he is on beta blockers, that he did not take any of his medications as of yet today. BP was 103/58 and SpO2 98% on room air. EKG revealed sinus bradycardia at 49 bpm with Q waves inferiorly along with T-wave inversion in leads III and aVF. Review of prior EKGs revealed multiple episodes of sinus bradycardia. Laboratory evaluation revealed a troponin of less than 0.012. Review of systems: Pertinent positives and negatives as discussed in HPI, a complete review of systems was performed and all other systems are negative. Physical examination: General: non toxic, no distress, appears at stated age, obese Derm: no unusual rashes/lesions no unusual ecchymoses, warm, dry Head: atraumatic, normocephalic, symmetric Eyes: EOMI, no lid lag, anicteric sclera, pupils equal round reactive to light ENT: Nose and ears atraumatic, no thrush, no pharyngeal erythema Neck: No thyromegaly, no cervical lymphadenopathy, trachea midline, supple Mouth: no lip lesion, mucus membranes moist Cardiovascular: S1S2 reg, no murmur, positive posterior tibial pulse bilateral, no edema, capillary refill less than 2 seconds Lungs: CTA bilateral, no rhonchi, no rales , no accessory muscle use Abdominal: soft, nontender to palpation, no guarding, no appreciable organomegaly, normal bowel sounds Ext: no gross muscle atrophy, muscle strength 5 out of 5 in all 4 extremities grossly, no contractures, Neuro: CN II-XI grossly intact, light touch intact all 4 extremities, finger to nose within normal limits, Psych: Alert, oriented, appropriate affect Assessment/plan Lightheadedness, double vision, suspected secondary to sinus bradycardia vs TIA -Neurochecks -Cardiac monitoring -Hold oral beta blockers -Fall precautions -Cardiology consult -Hold oral antihypertensives in setting of borderline BP DVT prophylaxis -Heparin subcu The patient is admitted with an anticipated less than 2 midnight stay for evaluation of diplopia. CODE STATUS:Full Code Discussed with: Patient Anticipated discharge date: in am Anticipated discharge place: Home Past Medical History Past Medical History: Chest Pain / Angina, CVA/TIA, Hearing Disorder / Deafness, Hypertension, Myocardial Infarction ([place]) Additional Past Medical History / Comment(s): Patient states he has had stents and heart cath but unsure of the date and how many stents. pt thinsk about 2 stents. TIA. [place]. Last Myocardial Infarction Date:: 1990 History of Any Multi-Drug Resistant Organisms: None Reported Past Surgical History: Heart Catheterization With Stent, Tonsillectomy Additional Past Surgical History / Comment(s): VASECTOMY Past Anesthesia/Blood Transfusion Reactions: No Reported Reaction Date of Last Stent Placement:: unknown Past Psychological History: No Psychological Hx Reported Smoking Status: Never smoker Past Alcohol Use History: None Reported Past Drug Use History: None Reported - Past Family History Father Family Medical History: Myocardial Infarction ([place]) Additional Family Medical History / Comment(s): Father at 52 from [place] Mother Family Medical History: Cancer Additional Family Medical History / Comment(s): SKIN CANCER Medications and Allergies Home Medications Medication Instructions Recorded Confirmed Type Isosorbide Mononitrate [Ismo] 20 mg PO BID 08/29/14 01/05/21 History Niacin [Niacin ER] 1,000 mg PO HS 08/29/14 01/05/21 History Simvastatin [Zocor] 20 mg PO DAILY 08/29/14 01/05/21 History Doxazosin [Cardura] 4 mg PO DAILY 05/02/16 01/05/21 History tiZANidine HCL [Zanaflex] 4 mg PO TID PRN 06/18/18 01/05/21 History Aspirin [Adult Low Dose Aspirin EC] 81 mg PO HS 01/05/21 01/05/21 History Naproxen 500 mg PO BID 01/05/21 01/05/21 History Vitamin B Complex 1 cap PO DAILY 01/05/21 01/05/21 History atenoloL [Tenormin] 25 mg PO BID 01/05/21 01/05/21 History Allergies Allergy/AdvReac Type Severity Reaction Status Date / Time latex Allergy Dyspnea Verified 01/05/21 17:42 Physical Exam Vitals: Vital Signs Temp Pulse Resp BP Pulse Ox 01/05/21 20:00 46 L 20 119/58 97 01/05/21 18:30 47 L 15 115/59 01/05/21 18:00 44 L 14 103/58 98 01/05/21 17:15 97.7 F 50 L 20 100/56 100 Intake and Output 01/05/21 01/05/21 01/05/21 06:59 14:59 22:59 Other: Weight 90.718 kg Results CBC & Chem 7: 01/05/21 17:38 01/05/21 17:38 Labs: Abnormal Lab Results - Last 24 Hours (Table) 01/05/21 01/05/21 Range/Units 17:38 17:38 RBC 4.22 L (4.30-5.90) m/uL Lymphocytes # 0.9 L (1.0-4.8) k/uL Glucose 124 H (74-99) mg/dL Magnesium 2.4 H (1.6-2.3) mg/dL
--- NOTE | 2021-01-05 21:16 | XR ---
EXAMINATION TYPE: XR chest 1V portable DATE OF EXAM: 01/05/2021 COMPARISON: 04/09/2020 HISTORY: Lightheaded TECHNIQUE: FINDINGS: Heart and mediastinum are normal. Lungs are clear of consolidation. There are no hilar mass es. There is some minimal linear density at the left lung base. IMPRESSION: Minimal subsegmental atelectasis lateral left lung base slightly increased compared to ol d exam. Normal heart.
[2021-01-06] MEDS: HEPARIN SODIUM,PORCINE/PF 5,000 UNIT/0.5 ML SYRINGE SQ SCH ×4 (02:25→20:10)
[2021-01-06] MEDS: ATORVASTATIN 10 MG TAB PO SCH (07:49)
--- NOTE | 2021-01-06 08:25 | P.PN ---
<Anant Carter - Last Filed: 01/06/21 15:37> Subjective Progress Note Date: 01/06/21 Hospital course: Patient is a a very pleasant 75-year-old male with a past medical history of CAD with stenting, hypertension, hyperlipidemia, previous CVA, and hearing disorder/deafness wearing bilateral hearing aids. Patient presented to the emergency department on 01/05/21 with a chief complaint of lightheadedness and double vision. Upon arrival to the emergency department patient was found to have bradycardia. EKG completed revealing sinus bradycardia at 49 bpm with no noted T wave or ST abnormality showing no signs of acute ischemia. Troponin was less than 0.012. CBC and BMP were unremarkable. Chest x-ray revealed subsegmental atelectasis at left lower lung base. Patient was admitted under our services for symptomatic bradycardia with consultation to cardiology. Physical exam: 01/06/21: Patient seen and fully evaluated at bedside this morning. Patient reports dizziness and double vision and similar to the way he felt when he had his CVA years ago. He is on daily aspirin and atorvastatin and we will complete a lipid profile with a.m. labs. Patient currently sitting up at bedside in chair. He denies having any headache, lightheadedness, dizziness, chest pain, palpitations, shortness of breath, or experiencing any numbness/tingling/weaknes s in his extremities. He currently denies having double vision or tinnitus, reporting full resolution of these symptoms at this time. Vital signs reviewed and stable. General: Nontoxic, no distress and appears stated age. Derm: Skin warm and dry, normal coloration for ethnicity. Head: Atraumatic, normocephalic and symmetric. Hard of hearing. Eyes: EOMs intact, no lid lag, and anicteric sclera Mouth: no lip lesions, mucus membranes moist Cardiovascular: regular rate and rhythm with normal S1S2, no murmur, positive posterior tibial pulses bilaterally, and cap refill < 2 seconds. Lungs: Respirations even, regular, and unlabored on room air. Lungs CTA bilaterally, no rhonchi, no rales, no wheezing, and no accessory muscle usage. Abdominal: soft, nontender to palpation, no guarding, no appreciable organomegaly Ext: ROM intact. No gross muscle atrophy, no edema, no contractures Neuro: Speech clear, face symmetrical and CN II-XII grossly intact with no noted focal neuro deficits Psych: Alert and oriented to person, place, time, and situation. Appropriate and pleasant affect. Assessment and Plan of Care: Symptomatically bradycardia Dizziness and double vision -EKG completed revealing sinus bradycardia at 49 bpm with no noted T wave or ST abnormality showing no signs of acute ischemia. -Troponin was less than 0.012. -Cardiology consulted, appreciate further recommendations -Patient's atenolol decreased to 12.5 mg daily. -Cardiac monitoring -TSH 1.890. -CT Brain showing no acute intercranial process with [id number] diffuse cerebral atrophy over bilateral frontal lobes and mild to moderate chronic small vessel ischemic changes. No significant changes from prior CT with the exc eption of worsening bilateral ethmoid sinus disease. -Orders placed for Flonase, 2 sprays in each nostril daily. -Orthostatic vitals to be completed. History of CAD with previous stenting, hypertension, and hyperlipidemia -Monitor vital signs and continue daily medication regimen. -Lipid profile with a.m. labs -Heart healthy diet History of CVA -Continue daily aspirin and atorvastatin. -CT Brain showing no acute intercranial process with [id number] diffuse cerebral atrophy over bilateral frontal lobes and mild to moderate chronic small vessel ischemic changes. No significant changes from prior CT with the exception of worsening bilateral ethmoid sinus disease. -Lipid profile with a.m. labs DVT prophylaxis: Heparin Discussed with: Patient and RN Anticipated discharge date: Clinical course to determine Anticipated discharge place: Home A total of 45 minutes was spent on the care of this complex patient more than 50% of the time was spent in counseling and care coordination. Objective - Vital Signs Vital signs: Vital Signs Temp 97.9 F 01/06/21 07:40 Pulse 50 L 01/06/21 07:40 Resp 16 01/06/21 07:40 BP 143/80 01/06/21 07:40 Pulse Ox 100 01/06/21 07:40 Intake & Output 01/05/21 01/06/21 01/06/21 18:59 06:59 18:59 Weight 90.718 kg 90.718 kg - Labs CBC & Chem 7: 01/05/21 17:38 01/05/21 17:38 Labs: Abnormal Lab Results - Last 24 Hours (Table) 01/05/21 01/05/21 Range/Units 17:38 17:38 RBC 4.22 L (4.30-5.90) m/uL Lymphocytes # 0.9 L (1.0-4.8) k/uL Glucose 124 H (74-99) mg/dL Magnesium 2.4 H (1.6-2.3) mg/dL <Bambi Ortez Grady - Last Filed: 01/06/21 18:45> Subjective Patient seen and examined independently. Patient was also seen by Anant Carter NP and case was discussed. I am in agreement with subjective, physical exam, assessment and plan as written above and amended below. Double vision resolved, no chest pain, no nausea, no vomiting. General: non toxic, no distress, appears at stated age Derm: warm, dry Head: atraumatic, normocephalic, symmetric Eyes: EOMI, no lid lag, anicteric sclera Mouth: no lip lesion, mucus membranes moist Cardiovascular: S1S2 reg, no murmur, positive posterior tibial pulse bilateral, Lungs: CTA bilateral, no rhonchi, no rales , no accessory muscle use Abdominal: soft, nontender to palpation, no guarding, no appreciable organomegaly Ext: no gross muscle atrophy, no edema, no contractures Neuro: CN II-XI grossly intact, no focal neuro deficits Psych: Alert, oriented, appropriate affect Objective - Vital Signs Vital signs: Vital Signs Temp 97.7 F 01/06/21 14:52 Pulse 75 01/06/21 14:52 Resp 18 01/06/21 14:52 BP 134/64 01/06/21 14:52 Pulse Ox 98 01/06/21 14:52 Intake & Output 01/05/21 01/06/21 01/06/21 18:59 06:59 18:59 Intake Total 360 Balance 360 Weight 90.718 kg 90.718 kg Intake: Oral 360 Other: # Voids 1 - Labs CBC & Chem 7: 01/05/21 17:38 01/05/21 17:38
--- NOTE | 2021-01-06 09:27 | CT ---
EXAMINATION TYPE: CT brain wo con DATE OF EXAM: 01/06/2021 HISTORY: Dizziness/tinnitus CT DLP: 1064.40 mGycm. Automated Exposure Control for Dose Reduction was Utilized. TECHNIQUE: CT scan of the head is performed without contrast. COMPARISON: CT brain February 06, 2015. FINDINGS: There is no acute intracranial hemorrhage or midline shift identified. There is mild to m oderate diffuse ventricular and sulcal prominence consistent with diffuse age-related cerebral atroph y greatest over bilateral frontal lobes similar to prior. There is uujn-fb-[id number] low-attenuation in the periventricular white matter consistent with chronic small vessel ischemic change. Eccentric m ucosal thickening or small polyp posterior left maxillary sinus axial image 2 is redemonstrated. Mode rate mucosal thickening and patchy opacification of ethmoid sinuses bilaterally is more prominent jaclyn n prior study. Persistent anterior metopic suture which is normal variant. Globes are intact bilatera lly. Mastoid air cells show no suspicious opacification. IMPRESSION: No acute intracranial hemorrhage or midline shift. There is mild to moderate diffuse ce rebral atrophy grayness over bilateral frontal lobes and mild to moderate chronic small vessel ischem ic change redemonstrated. No significant change from prior. Worsening bilateral ethmoid sinus diseas e noted.
--- NOTE | 2021-01-06 10:44 | P.CRDCN ---
History of Present Illness History of present illness: HISTORY OF PRESENTING ILLNESS This is a pleasant 75-year-old male past medical history significant for coronary artery disease with known total occlusion of RCA, previously stented circumflex which was patent in a cardiac cath in June 2018, dyslipidemia, hypertension, former nicotine dependence. He follows in the office with Dr. Rojas. We have been asked to see in consultation for bradycardia. Patient is seen and examined at bedside, no acute distress. Patient states that yesterday he had episodes of ringing in the ears, double vision, some dizziness. At that time he states he was just watching TV. He had similar episodes a couple days ago [place], and he also had double vision, lightheadedness and developed some ringing in his ears and thought that he may faint. EMS was called and patient was brought to the emergency department. Patient denies any chest pain, shortness of breath, nausea, vomiting, diaphoresis. At home patient is on atenolol 25mg BID, Zanaflex, niacin, aspirin daily, simvastatin, Imdur, doxazosin, naproxen DIAGNOSTICS EKG reveals sinus bradycardia, heart rate 49, to have inversions in leads III and aVF Prior EKG in 2019 appear similar Telemetry tracings indicate sinus bradycardia, heart rate 48-50s no arrhythmia or pauses noted Chest xray minimal atelectasis lateral left lung base CT brain revealed no intracranial hemorrhage or midline shift. Mild to moderate diffuse atrophy grayness over bilateral frontal lobes and mild to moderate chronic small vessel ischemic change redemonstrated. No significant change from prior. Worsening bilateral ethmoid sinus disease noted. Most recent echocardiogram June 2018 reveals an EF of 6065 percent, LA is mildly dilated, trace mitral regurgitation, mild tricuspid regurgitation Dobutamine echo stress test in 2015 negative Laboratory reviewed, troponin negative 1, TSH within normal limits, WBC 6.4, hemoglobin 14.4, platelets 160, sodium 138, potassium 4.1, BUN 19, serum creatinine 0.7, magnesium 2.4. REVIEW OF SYSTEMS At the time of my exam: CONSTITUTIONAL: Denies fever or chills. CARDIOVASCULAR: Denies chest pain, shortness of breath, orthopnea, PND or palpitations. RESPIRATORY: Denies cough. GASTROINTESTINAL: Denies abdominal pain, diarrhea, constipation, nausea or vomiting. MUSCULOSKELETAL: Denies myalgias. NEUROLOGIC: +double vision, +ringing in the ears +lightheadeness +dizziness. Denies numbness, tingling, headacbe or weakness. ENDOCRINE: Denies fatigue, weight change, polydipsia or polyurina. GENITOURINARY: Denies burning, hematuria or urgency with micturation. HEMATOLOGIC: Denies history of anemia or bleeding. PHYSICAL EXAMINATION Blood pressure 143/80 heart rate 50 afebrile and maintaining oxygen saturation on room air. CONSTITUTIONAL: No apparent distress. HEENT: Head is normocephalic. Pupils are equal, round. Sclerae anicteric. Mucous membranes of the mouth are moist. No JVD. No carotid bruit. CHEST EXAMINATION: Lungs are clear to auscultation. No chest wall tenderness is noted on palpation or with deep breathing. HEART EXAMINATION: Regular rate and rhythm. S1, S2 heard. No murmurs, gallops or rub. ABDOMEN: Soft, nontender. Positive bowel sounds. EXTREMITIES: 2+ peripheral pulses, no lower extremity edema and no calf tenderness. NEUROLOGIC EXAMINATION: Patient is awake, alert and oriented x3. ASSESSMENT Diplopia Tinnitus Lightheadedness Coronary artery disease- with known total occlusion of RCA, PCI to circumflex in 1999 Dyslipidemia Hypertension PLAN Decrease atenolol to 12.5mg daily Continue to monitor patient on telemetry for 24 hours Increase activity as tolerated Continue other home cardiac medications Further recommendations following pending clinical course Nurse Practitioner note has been reviewed, I agree with a documented findings and plan of care. Patient was seen and examined. Past Medical History Past Medical History: Chest Pain / Angina, CVA/TIA, Hearing Disorder / Deafness, Hypertension, Myocardial Infarction ([place]) Additional Past Medical History / Comment(s): Patient states he has had stents and heart cath but unsure of the date and how many stents. pt thinsk about 2 stents. TIA. SHOALWATER. Last Myocardial Infarction Date:: 1990 History of Any Multi-Drug Resistant Organisms: None Reported Past Surgical History: Heart Catheterization With Stent, Tonsillectomy Additional Past Surgical History / Comment(s): VASECTOMY Past Anesthesia/Blood Transfusion Reactions: No Reported Reaction Date of Last Stent Placement:: unknown Past Psychological History: No Psychological Hx Reported Smoking Status: Never smoker Past Alcohol Use History: None Reported Additional Past Alcohol Use History / Comment(s): STARTED SMOKING AT 14 QUIT AT AGE 16 SMOKED 1/2PPD OR A PIPE Past Drug Use History: None Reported - Past Family History Father Family Medical History: Myocardial Infarction ([place]) Additional Family Medical History / Comment(s): Father at 52 from [place] Mother Family Medical History: Cancer Additional Family Medical History / Comment(s): SKIN CANCER Medications and Allergies Home Medications Medication Instructions Recorded Confirmed Type Isosorbide Mononitrate [Ismo] 20 mg PO BID 08/29/14 01/05/21 History Niacin [Niacin ER] 1,000 mg PO HS 08/29/14 01/05/21 History Simvastatin [Zocor] 20 mg PO DAILY 08/29/14 01/05/21 History Doxazosin [Cardura] 4 mg PO DAILY 05/02/16 01/05/21 History tiZANidine HCL [Zanaflex] 4 mg PO TID PRN 06/18/18 01/05/21 History Aspirin [Adult Low Dose Aspirin EC] 81 mg PO HS 01/05/21 01/05/21 History Naproxen 500 mg PO BID 01/05/21 01/05/21 History Vitamin B Complex 1 cap PO DAILY 01/05/21 01/05/21 History Allergies Allergy/AdvReac Type Severity Reaction Status Date / Time latex Allergy Dyspnea Verified 01/05/21 17:42 Physical Exam Vitals: Vital Signs Temp Pulse Pulse Resp BP BP Pulse Ox 01/06/21 07:40 97.9 F 50 L 16 143/80 100 01/06/21 07:00 97.9 F 50 L 16 143/80 100 01/06/21 06:35 52 L 20 152/67 96 01/06/21 02:19 49 L 15 131/57 97 01/06/21 01:30 49 L 15 135/63 96 01/05/21 22:31 57 L 20 151/67 98 01/05/21 20:00 46 L 20 119/58 97 01/05/21 18:30 47 L 15 115/59 01/05/21 18:00 44 L 14 103/58 98 01/05/21 17:15 97.7 F 50 L 20 100/56 100 Intake and Output 01/05/21 01/06/21 01/06/21 22:59 06:59 14:59 Other: Weight 90.718 kg 90.718 kg Results 01/05/21 17:38 01/05/21 17:38 Cardiac Enzymes 01/05/21 Range/Units 19:17 Troponin I <0.012 (0.000-0.034) ng/mL Coagulation 01/05/21 Range/Units 17:38 PT 11.2 (9.0-12.0) sec APTT 26.9 (22.0-30.0) sec CBC 01/05/21 Range/Units 17:38 WBC 6.4 (3.8-10.6) k/uL RBC 4.22 L (4.30-5.90) m/uL Hgb 14.4 (13.0-17.5) gm/dL Hct 41.4 (39.0-53.0) % Plt Count 160 (150-450) k/uL Comprehensive Metabolic Panel 01/05/21 Range/Units 17:38 Sodium 138 (137-145) mmol/L Potassium 4.1 (3.5-5.1) mmol/L Chloride 106 (98-107) mmol/L Carbon Dioxide 27 (22-30) mmol/L BUN 19 (9-20) mg/dL Creatinine 0.74 (0.66-1.25) mg/dL Glucose 124 H (74-99) mg/dL Calcium 8.9 (8.4-10.2) mg/dL Current Medications Generic Name Dose Route Start Last Admin Trade Name Freq PRN Reason Stop Dose Admin Aspirin 81 mg 01/06/21 21:00 Aspirin 81 Mg PO HS RICARDA Atorvastatin Calcium 10 mg 01/06/21 09:00 01/06/21 07:49 Atorvastatin 10 Mg Tab PO 10 mg DAILY RICARDA Administration Heparin Sodium (Porcine) 5,000 unit 01/06/21 00:00 01/06/21 07:49 Heparin Sodium,Porcine/Pf 5,000 Unit/0.5 Ml Syringe SQ 5,000 unit Q8HR RICARDA Administration Sodium Chloride 1,000 mls @ 20 mls/hr 01/05/21 19:30 01/05/21 19:58 Saline 0.9% IV 20 mls/hr .Q24H RICARDA Administration Naloxone HCl 0.2 mg 01/05/21 19:24 Naloxone 0.4 Mg/Ml 1 Ml Vial IV Q2M PRN Opioid Reversal Intake and Output 01/05/21 01/06/21 01/06/21 22:59 06:59 14:59 Other: Weight 90.718 kg 90.718 kg Patient Weight 01/07/21 06:59 Weight 90.718 kg 01/05/21 17:38 01/05/21 17:38
[2021-01-06] MEDS: FLUTICASONE 50MCG/SPRAY NASAL 16GM EA NOSTRIL SCH (16:22)
[2021-01-06] MEDS: SODIUM CHLORIDE 0.9% 1,000 ML IV SCH (20:05)
[2021-01-06] MEDS: HYDROcodone/APAP 5-325MG 1 EACH TAB PO PRN (20:26)
[2021-01-06] MEDS ORDERED: ASPIRIN 81 MG PO SCH (21:00)
[2021-01-07 03:44] VITALS: TEMP 97.6
[2021-01-07] MEDS: HYDROcodone/APAP 5-325MG 1 EACH TAB PO PRN (04:38)
[2021-01-07 07:54] LABS: African American GFR (CKD) >90 (>60 ml/min/1.73 sqM); Anion Gap 5 mmol/L; Blood Urea Nitrogen 20 mg/dL (9-20); Carbon Dioxide 29 mmol/L (22-30); Chloride 105 mmol/L (98-107); Glucose 97 mg/dL (74-99); Magnesium 2.2 mg/dL (1.6-2.3); Non-African American GFR(CKD) 79 (>60 ml/min/1.73 sqM); Potassium 4.2 mmol/L (3.5-5.1); Sodium 139 mmol/L (137-145)
[2021-01-07 09:20] VITALS: BP 157/69; PULSE 53; RESP 16
[2021-01-07 09:39] LABS: HCT 38.3 % (39.6-50.0); HGB 12.7 g/dL (13.0-17.0); MCH 32.2 pg (27.0-32.0); MCHC 33.2 g/dL (32.0-37.0); Mean Platelet Volume 10.8 fL (9.5-12.2); Platelet Count 149 X 10*3/uL (140-440); RBC 3.95 X 10*6/uL (4.40-5.60); RDW 13.5 % (11.5-14.5); WBC 5.53 X 10*3/uL (4.50-10.00)
[2021-01-07] MEDS: HEPARIN SODIUM,PORCINE/PF 5,000 UNIT/0.5 ML SYRINGE SQ SCH (10:00)
[2021-01-07] MEDS: ATORVASTATIN 10 MG TAB PO SCH (10:00)
[2021-01-07] MEDS: FLUTICASONE 50MCG/SPRAY NASAL 16GM EA NOSTRIL SCH (10:00)
--- NOTE | 2021-01-07 10:48 | P.DS ---
<Anant Carter - Last Filed: 01/07/21 10:36> Providers Expected date of discharge: 01/07/21 Hospital Course: Discharge Diagnosis: Symptomatically bradycardia Dizziness and double vision History of CAD with previous stenting, hypertension, and hyperlipidemia History of CVA Hospital Course: Patient is a a very pleasant 75-year-old male with a past medical history of CAD with stenting, hypertension, hyperlipidemia, previous CVA, and hearing disorder/deafness wearing bilateral hearing aids. Patient presented to the emergency department on 01/05/21 with a chief complaint of lightheadedness and double vision. Upon arrival to the emergency department patient was found to have bradycardia. EKG completed revealing sinus bradycardia at 49 bpm with no noted T wave or ST abnormality showing no signs of acute ischemia. Troponin was less than 0.012. CBC and BMP were unremarkable. Chest x-ray revealed subsegmental atelectasis at left lower lung base. Patient was admitted under our services for symptomatic bradycardia with consultation to cardiology. He underwent a CT Brain showing no acute intercranial process with [id number] diffuse cerebral atrophy over bilateral frontal lobes and mild to moderate chronic small vessel ischemic changes with no significant changes from prior CT with the exception of worsening bilateral ethmoid sinus disease. Atenolol (Tenormin) dose was decreased from 25 mg BID down to 12.5 mg once a day. Tizanidine HCL (Zanaflex) was discontinued as this medication is known to cause dizziness and bradycardia. Lastly because CT showed worsening sinus disease, we started pt on Flonase nasal spray once daily. Patient's symptoms of dizziness, lightheadedness, and double vision resolved. He continued to have mild bradycardia but improved and has remained in the 50s and patient now asymptomatic. Patient is medically stable for discharge home and was cleared by cardiology. Patient to follow up with primary care provider, Dr. Huitron in 1- 2 days and with office copy selector, Dr. Rojas in 2 weeks. Physical exam: Patient seen and fully evaluated at bedside this morning. Patient reports dizziness, lightheadedness and double vision have resolved. Patient ambulatory in room without difficulties. Denied having any headache, lightheadedness, dizziness, chest pain, palpitations, shortness of breath, nausea, vomiting, or experiencing any numbness/tingling/weakness/swelling in his extremities. Vital signs reviewed and stable. General: Nontoxic, no distress and appears stated age. Derm: Skin warm and dry, normal coloration for ethnicity. Head: Atraumatic, normocephalic and symmetric. Hard of hearing. Eyes: EOMs intact, no lid lag, and anicteric sclera Mouth: no lip lesions, mucus membranes moist Cardiovascular: regular rate and rhythm with normal S1S2, no murmur, positive posterior tibial pulses bilaterally, and cap refill < 2 seconds. Lungs: Respirations even, regular, and unlabored on room air. Lungs CTA bilaterally, no rhonchi, no rales, no wheezing, and no accessory muscle usage. Abdominal: soft, nontender to palpation, no guarding, no appreciable organomegaly Ext: ROM intact. No gross muscle atrophy, no edema, no contractures Neuro: Speech clear, face symmetrical and CN II-XII grossly intact with no noted focal neuro deficits Psych: Alert and oriented to person, place, time, and situation. Appropriate and pleasant affect. A total of 45 minutes of time were spent preparing this complex discharge summary. Patient Condition at Discharge: Fair Plan - Discharge Summary New Discharge Prescriptions: New Fluticasone Nasal [place] [Flonase Nasal [place]ell] 2 spray EA NOSTRIL DAILY 30 Days #1 pack atenoloL [Tenormin] 12.5 mg PO DAILY #90 tab Continue Simvastatin [Zocor] 20 mg PO DAILY Isosorbide Mononitrate [Ismo] 20 mg PO BID Niacin [Niacin ER] 1,000 mg PO HS Doxazosin [Cardura] 4 mg PO DAILY Naproxen 500 mg PO BID Aspirin [Adult Low Dose Aspirin EC] 81 mg PO HS Vitamin B Complex 1 cap PO DAILY Discontinued tiZANidine HCL [Zanaflex] 4 mg PO TID PRN PRN Reason: Pain atenoloL [Tenormin] 25 mg PO BID Discharge Medication List Isosorbide Mononitrate [Ismo] 20 mg PO BID 08/29/14 [History] Niacin [Niacin ER] 1,000 mg PO HS 08/29/14 [History] Simvastatin [Zocor] 20 mg PO DAILY 08/29/14 [History] Doxazosin [Cardura] 4 mg PO DAILY 05/02/16 [History] Aspirin [Adult Low Dose Aspirin EC] 81 mg PO HS 01/05/21 [History] Naproxen 500 mg PO BID 01/05/21 [History] Vitamin B Complex 1 cap PO DAILY 01/05/21 [History] Fluticasone Nasal [place] [Flonase Nasal [place]] 2 spray EA NOSTRIL DAILY 30 Days #1 pack 01/07/21 [Rx] atenoloL [Tenormin] 12.5 mg PO DAILY #90 tab 01/07/21 [Rx] Follow up Appointment(s)/Referral(s): Radhika Rojas MD [STAFF PHYSICIAN] - 01/13/21 3:00 pm Kristian Huitron MD [Primary Care Provider] - 1-2 days Patient Instructions/Handouts: Bradycardia (GEN) Activity/Diet/Wound Care/Special Instructions: Activity: As tolerated. Take breaks as needed. Diet: Heart healthy and carb consistent diet. Avoid salts, or foods with hidden salts such as canned or boxed foods and frozen dinners. Extra salt makes your heart work harder and traps the fluid in your body for longer. Special Instructions: Take all of your medications as directed and remember to keep all of your doctor's appointments and follow-up as needed. You will need to follow up with your primary care doctor, Dr. Huitron in 1-2 days and with office copy selector, Dr. Rojas in 2 weeks. We have discontinued your tizanidine HCL (Zanaflex) as this medication is known to cause dizziness and bradycardia. Your atenolol (Tenormin) dose has been decreased so you are now only taking 12.5 mg once a day. Lastly because your CT showed worsening sinus disease, we have started you on Flonase nasal spray in which you will spray two squirts into each nostril every morning. Thank you for allowing us to participate in your care, it was truly a pleasure having you for our patient!!! Discharge Disposition: HOME SELF-CARE <Bambi Ortez Grady - Last Filed: 01/07/21 16:46> Providers Date of admission: 01/05/21 19:25 Attending physician: Donovan Harris MD Consults: 01/05/21 19:26 Consult Physician Routine Consulting Provider: Jorge Ferrera Consult Reason/Comments: bradycardia Do you want consulting provider notified?: Yes Primary care physician: Kristian Huitron MD Hospital Course: Anant Carter NP rendered care for this patient independently, reviewed the findings and plan as documented in the note above. I did not physically speak with or examine the patient on this date.
--- NOTE | 2021-01-07 12:22 | P.PN ---
Subjective Progress Note Date: 01/07/21 HISTORY OF PRESENTING ILLNESS This is a pleasant 75-year-old male past medical history significant for cor onary artery disease with known total occlusion of RCA, previously stented circumflex which was patent in a cardiac cath in June 2018, dyslipidemia, hypertension, former nicotine dependence. He follows in the office with Dr. Rojas. We have been asked to see in consultation for bradycardia. Patient is seen and examined at bedside, no acute distress. Patient states that yesterday he had episodes of ringing in the ears, double vision, some dizziness. At that time he states he was just watching TV. He had similar episodes a couple days ago [place], and he also had double vision, lightheadedness and developed some ringing in his ears and thought that he may faint. EMS was called and patient was brought to the emergency department. Patient denies any chest pain, shortness of breath, nausea, vomiting, diaphoresis. At home patient is on atenolol 25mg BID, Zanaflex, niacin, aspirin daily, simvastatin, Imdur, doxazosin, naproxen DIAGNOSTICS EKG reveals sinus bradycardia, heart rate 49, to have inversions in leads III and aVF Prior EKG in 2019 appear similar Telemetry tracings indicate sinus bradycardia, heart rate 48-50s no arrhythmia or pauses noted Chest xray minimal atelectasis lateral left lung base CT brain revealed no intracranial hemorrhage or midline shift. Mild to moderate diffuse atrophy grayness over bilateral frontal lobes and mild to moderate chronic small vessel ischemic change redemonstrated. No significant change from prior. Worsening bilateral ethmoid sinus disease noted. Most recent echocardiogram June 2018 reveals an EF of 6065 percent, LA is mildly dilated, trace mitral regurgitation, mild tricuspid regurgitation Dobutamine echo stress test in 2014 negative Laboratory reviewed, troponin negative 1, TSH within normal limits, WBC 6.4, hemoglobin 14.4, platelets 160, sodium 138, potassium 4.1, BUN 19, serum creatinine 0.7, magnesium 2.4. 01/07/2021 Patient examined this morning at the bedside. Patient denies chest pain or pressure. He denies shortness of breath. Telemetry reveals sinus bradycardia. The patient denies any dizziness or lightheadedness. PHYSICAL EXAMINATION CONSTITUTIONAL: No apparent distress. HEENT: Head is normocephalic. Pupils are equal, round. Sclerae anicteric. Mucous membranes of the mouth are moist. No JVD. No carotid bruit. CHEST EXAMINATION: Lungs are clear to auscultation. No chest wall tenderness is noted on palpation or with deep breathing. HEART EXAMINATION: Regular rate and rhythm. S1, S2 heard. No murmurs, gallops or rub. ABDOMEN: Soft, nontender. Positive bowel sounds. EXTREMITIES: 2+ peripheral pulses, no lower extremity edema and no calf tenderness. NEUROLOGIC EXAMINATION: Patient is awake, alert and oriented x3. ASSESSMENT Diplopia Tinnitus Lightheadedness Coronary artery disease- with known total occlusion of RCA, PCI to circumflex in 1999 Dyslipidemia Hypertension PLAN Continue current dose of atenolol Patient is stable for discharge home today from a cardiac standpoint Nurse Practitioner note has been reviewed, I agree with a documented findings and plan of care. Patient was seen and examined. Objective - Vital Signs Vital signs: Vital Signs Temp 97.6 F 01/07/21 09:20 Pulse 53 L 01/07/21 09:20 Resp 16 01/07/21 09:20 BP 157/69 01/07/21 09:20 Pulse Ox 98 01/07/21 09:20 Intake & Output 01/06/21 01/07/21 01/07/21 18:59 06:59 18:59 Intake Total 360 Balance 360 Weight 90.718 kg Intake: Oral 360 Other: # Voids 1 2 - Labs CBC & Chem 7: 01/07/21 06:39 01/07/21 06:39 Labs: Abnormal Lab Results - Last 24 Hours (Table) 01/07/21 Range/Units 06:39 RBC 3.95 L (4.40-5.60) X 10*6/uL Hgb 12.7 L (13.0-17.0) g/dL Hct 38.3 L (39.6-50.0) % MCH 32.2 H (27.0-32.0) pg
[2021-01-08 16:29] LABS: Chol/HDL Ratio 2.97; Cholesterol 104 mg/dL (0-200); LDL Cholesterol,Calculated 45.4 mg/dL (0.0-131.0)
== END 2021-01-07 14:13 | disposition home or self-care (01) ==
LOC: EC 17:05 → 6NMEDSUR 19:25
PROVIDERS: ADMIT Internal Medicine; ATTEND Internal Medicine
DX: R00.1 Bradycardia, unspecified (principal); R42 Dizziness and giddiness; H53.2 Diplopia; I25.10 Atherosclerotic heart disease of native coronary artery without angina pectoris; Z95.5 Presence of coronary angioplasty implant and graft; Z86.73 Personal history of transient ischemic attack (TIA), and cerebral infarction without residual deficits; E78.5 Hyperlipidemia, unspecified; I10 Essential (primary) hypertension; I25.2 Old myocardial infarction; G89.29 Other chronic pain; H91.93 Unspecified hearing loss, bilateral; H93.19 Tinnitus, unspecified ear; J98.11 Atelectasis; Z79.82 Long term (current) use of aspirin; Z79.899 Other long term (current) drug therapy; Z80.8 Family history of malignant neoplasm of other organs or systems; Z82.49 Family history of ischemic heart disease and other diseases of the circulatory system; Z87.891 Personal history of nicotine dependence; Z97.4 Presence of external hearing-aid
CPT/HCPCS: 96372 ×3; 96361; 96374; 96375; 99285; 36415; 93005; 80061; 80048 ×2; 84443; 83735 ×2; 84484; 85025; 85027; 85610; 85730; 71045; 70450; G0378 ×3; J1200; J2405; J1885; J1644 ×2

== ENCOUNTER → 2021-01-20 | Outpatient (CLI) | payer MEDICARE ==
--- NOTE | 2021-01-20 18:35 | US ---
EXAMINATION TYPE: US kidneys/renal and bladder DATE OF EXAM: 01/20/2021 COMPARISON: 06/26/2016 CLINICAL HISTORY: 75-year-old male N20.0 Recurrent nephrolithiasis. Left flank pain. TECHNIQUE: Multiple sonographic images of the kidneys and bladder are obtained. FINDINGS: EXAM MEASUREMENTS: Right Kidney: 13.7 x 5.9 x 5.5 cm Left Kidney: 12.5 x 4.4 x 5.8 cm Right Kidney: upper pole cyst measures 2.2 cm. Shadowing echogenic focus at the upper to mid pole sylwia sures 1.5 x 1.0 cm. Lower pole parapelvic cyst measures 2.4 x 1.6 x 1.5 cm. No hydronephrosis. Left Kidney: Lower pole echogenic focus measures 5 mm. Upper pole cyst measures 2.6 cm. Lower pole pa rapelvic cyst measures 2.6 x 1.7 x 1.3 cm. Bladder: Anechoic, irregular, possibly trabeculated bladder wall seen. However, the irregularity is s omewhat greater along the right lateral aspect. Bilateral Jets seen Enlarged prostate gland measuring at least 5.4 cm wide with soft tissue impressing into the bladder b ase. Incidental finding: Mild ectasia of distal aorta of 2.7 x 2.8 cm, spanning 3.5 cm in length. IMPRESSION: 1. No hydronephrosis. 2. Bilateral renal cysts measuring up to 2.6 cm. 3. Nonobstructive calculus on either side measuring 1.5 cm on the right and 5 mm on the left. 4. Irregular appearance to the bladder wall probably bladder wall trabeculations related to chronic b ilateral obstruction. Clinically correlate. However, further correlation with urine cytology and urin alysis recommended given slightly asymmetric irregularity towards the right-sided bladder wall. Subtl e urothelial lesion is not excluded at this time. 5. Prostatomegaly at 5.4 cm wide.
== END | disposition home or self-care (01) ==
LOC: RADUSWWP 14:02
PROVIDERS: ATTEND Internal Medicine
DX: N28.1 Cyst of kidney, acquired (principal); N20.0 Calculus of kidney; N40.0 Benign prostatic hyperplasia without lower urinary tract symptoms
CPT/HCPCS: 76770

== ENCOUNTER → 2021-02-16 | Outpatient (CLI) | payer MEDICARE ==
--- NOTE | 2021-02-16 19:40 | XR ---
EXAMINATION TYPE: XR KUB DATE OF EXAM: 02/16/2021 4:37 PM CLINICAL HISTORY: Left-sided pain. History of kidney stones. TECHNIQUE: Two supine KUB images of the abdomen are obtained. COMPARISON: Most recent CT May 02, 2016. FINDINGS: Evaluation suboptimal due to overlying colonic fecal material. There is roughly 1.3 cm righ t renal calculus over the 12th rib redemonstrated. There is 6 to 7 mm left renal calculus at L2 level now identified. Overall nonobstructive bowel gas pattern. Multilevel spurring in the spine redemonstrated. Moderate a xial joint space loss both hips redemonstrated. IMPRESSION: As above.
== END | disposition home or self-care (01) ==
LOC: RADXRMAIN 15:45
PROVIDERS: ATTEND Urology
DX: N20.0 Calculus of kidney (principal)
CPT/HCPCS: 74018

== ENCOUNTER → 2021-03-15 | Outpatient (CLI) | payer MEDICARE ==
--- NOTE | 2021-03-15 16:32 | CT ---
EXAMINATION TYPE: CT urogram wo/w con DATE OF EXAM: 03/15/2021 COMPARISON: 05/02/2016 HISTORY: 75-year-old male N20.0, R31.3. LT side pain, renal stone, microhematuria. TECHNIQUE: Contiguous axial scanning of the abdomen and pelvis performed without and with IV Contrast , patient injected with 100 mL of Isovue 300. Delayed images through the kidneys and bladder were obt ained. Coronal/sagittal reconstructions performed. 3-D reconstructions generated on a dedicated [employer] workstation. CT DLP: 3499.40 mGycm Automated exposure control for dose reduction was used. FINDINGS: Heart upper limits of normal in size. Scattered coronary artery calcifications are present. Strandy d ependent atelectasis. No pleural effusion. No focal liver lesion or biliary ductal dilatation. Portal venous system is patent. The bladder, adrenal glands, spleen with hilar and inferior splenule, and pancreas within normal limi ts. Moderate atherosclerotic calcifications throughout the abdominal aorta with fusiform infrarenal abdom inal aortic aneurysm at 3.4 cm versus 3.1 cm on 05/02/2016. Scattered moderate atherosclerotic calcif ications SMA. Approximately 4 nonobstructive right renal calculi measuring up to 1.2 cm. Approximately 5 nonobstructive left renal calculi measuring up to 3 mm. Symmetric uptake and excretion of contrast from both kidneys. On the right, there is a parapelvic cyst measuring 2.6 cm. Bilateral renal cortical cysts are present measuring up to 2.3 cm. No suspicious solid renal mass. No suspicious filling defects within the renal collecting systems on either side. The distal third right ureter tight bird's anteriorly just into the proximal portion of a fatty indir ect right inguinal hernia before heading back out and inferiorly. No dilated small bowel, free fluid, or free air. No mesenteric or retroperitoneal lymphadenopathy. Mild stool burden. Left-sided colonic diverticulosis, greatest in the proximal and mid sigmoid colon. No pericolonic inflammatory change. Multiple circumference of bladder wall thickening with slightly trabeculated contour. There is prosta tomegaly at 6.9 cm wide with lobulated soft tissue impressing into the posterior bladder base. No abn ormal fluid collection in the pelvis or pelvic lymphadenopathy. Bones: Moderate degenerative change of the hips. Degenerative bony ankylosis of the SI joints. 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 Grade 1, nearly gr cruz 2 anterolisthesis L4-L5.-In the lower thoracic and upper lumbar spine. IMPRESSION: 1. BILATERAL RENAL CYSTS MEASURING UP TO 2.6 cm. Bilateral nonobstructive nephrolithiasis measuring u p to 1.2 cm. 2. No hydronephrosis or suspicious renal mass. Incidentally, the distal third right ureter diverts an teriorly and extends into the proximal portion of an indirect right inguinal hernia before heading ba ck inferiorly to the bladder. 3. Prostatomegaly at 6.9 cm wide suggest BPH. There is lobulated soft tissue that impresses into the bladder base, likely median lobe hypertrophy. Correlate with PSA values to exclude prostate cancer. B PH is favored. 4. Trabeculated and mildly thickened appearance to the bladder likely sequela of chronic bladder outl et obstruction as a product of the BPH. 5. A 3.4 cm AAA (versus 3.1 cm in 2016) disease. Left-sided colonic diverticulosis. Advanced degenera tive changes throughout the spine.
== END | disposition home or self-care (01) ==
LOC: RADCTMAIN 13:46
PROVIDERS: ATTEND Urology
DX: N20.0 Calculus of kidney (principal); N28.1 Cyst of kidney, acquired; N40.0 Benign prostatic hyperplasia without lower urinary tract symptoms; K40.90 Unilateral inguinal hernia, without obstruction or gangrene, not specified as recurrent; K57.30 Diverticulosis of large intestine without perforation or abscess without bleeding
CPT/HCPCS: 82565; 84520; 74178; 36415; 74400; Q9967

== ENCOUNTER → 2021-12-05 | Outpatient (CLI) | payer MEDICARE ==
--- NOTE | 2021-12-05 19:44 | CT ---
EXAMINATION TYPE: CT abdomen pelvis wo/w con DATE OF EXAM: 12/05/2021 COMPARISON: 03/15/2021 HISTORY: LLQ PAIN CT DLP: 2622.7 mGycm Automated exposure control for dose reduction was used. CONTRAST: Performed with IV Contrast, patient injected with 100ml mL of Isovue 300. Images obtained from the diaphragm to the floor the pelvis with no contrast and subsequently with the IV contrast. There is mild subsegmental atelectasis at the lung bases. Heart size is normal. No pericardial effusi on. Liver spleen and pancreas appear intact. Gallbladder is intact. The bile ducts are not dilated. Stoma ch is intact. There is no adrenal mass. Kidneys are of normal size. No hydronephrosis. There is mild renal atrophy. There is a 1 cm calculus lateral right kidney. Ureters are not dilated. There is no retroperitoneal adenopathy. Urinary bladder distends smoothly. There is an enlarged prostate measuring 6.7 cm. There is fat containing bilateral inguinal hernias. No free fluid in the pelvis. No pelvic mass. There are a few small left renal calculi up to 3 mm. There is 2 cm cortical cyst upper pole right kidney. There is 2 cm cortical cyst upper pole left kidney. There is no mesenteric edema. No ascites or free air. No bowel obstruction. There are sigmoid diverti cula. No diverticulitis. Appendix is posterior and appears normal. There is 3.3 cm aneurysm of the mi dabdominal aorta unchanged. Lumbar vertebrae have normal alignment. No compression fracture. There is vacuum disc at L4-5. Bony p kamaljit is intact. The hip joints are intact. There is some mild acetabular spurring. IMPRESSION: Bilateral nonobstructing multiple renal calculi. Calculi appear increased compared to old exam. Sigmo id diverticulosis. Enlarged prostate.
== END | disposition home or self-care (01) ==
LOC: RADCTMAIN 17:13
PROVIDERS: ATTEND Family Medicine
DX: N20.0 Calculus of kidney (principal); K57.30 Diverticulosis of large intestine without perforation or abscess without bleeding; N40.0 Benign prostatic hyperplasia without lower urinary tract symptoms
CPT/HCPCS: 82565; 84520; 74178; 36415; Q9967

== ENCOUNTER → 2022-01-10 | Outpatient (CLI) | payer MEDICARE ==
--- NOTE | 2022-01-11 18:05 | CT ---
EXAM: CT Abdomen and Pelvis Without Intravenous Contrast CLINICAL HISTORY: ITS.REASON CT Reason: K57.92 diverticulitis TECHNIQUE: Axial computed tomography images of the abdomen and pelvis without intravenous contrast. CTDI is 17.95 mGy and DLP is 1023.13 mGy-cm. This CT exam was performed using one or more of the following dose reduction techniques: automated exposure control, adjustment of the mA and/or kV according to patient size, and/or use of iterative reconstruction technique. COMPARISON: None FINDINGS: Lung bases: Mild lower lung atelectasis. ABDOMEN: Liver: Unremarkable. Gallbladder and bile ducts: Unremarkable. No calcified stones. No ductal dilation. Pancreas: Unremarkable. No ductal dilation. Spleen: Small splenule. Adrenals: Unremarkable. No mass. Kidneys and ureters: 2 adjacent stones in the distal right ureter measuring approximately 1.0 cm in total. Mild to moderate right hydroureteronephrosis. Additional right renal stones. Right perinephric fat stranding/fluid. Punctate nonobstructing left renal stones. No hydronephrosis or ureteral stone on the left. Small bilateral renal cysts. Stomach and bowel: Diverticulosis without evidence of diverticulitis. No small bowel obstruction. PELVIS: Appendix: Normal appendix. Bladder: Wall thickening of the bladder may be secondary to cystitis versus neoplasm. Please correlate with urinalysis. No stones. Reproductive: Prostatomegaly. Probable protrusion of prostatic tissue along the base of the bladder. ABDOMEN and PELVIS: Intraperitoneal space: Unremarkable. No free air. No significant fluid collection. Bones/joints: Degenerative changes of the spine. Grade 1 anterolisthesis of L4 on L5. No acute fracture. No dislocation. Soft tissues: Fat-containing bilateral inguinal hernias. Tiny fat- containing umbilical hernia. Vasculature: Atherosclerotic changes of the vasculature. Mild ectasia/aneurysmal dilatation of the infrarenal abdominal aorta, measuring approximately 3.4 cm in diameter. Lymph nodes: Unremarkable. No enlarged lymph nodes. IMPRESSION: 1. 2 adjacent stones in the distal right ureter measuring approximately 1.0 cm in total. Mild to moderate right hydroureteronephrosis. Additional right renal stones. Right perinephric fat stranding/fluid. 2. Punctate nonobstructing left renal stones. No hydronephrosis or ureteral stone on the left. 3. Wall thickening of the bladder may be secondary to cystitis versus neoplasm. Please correlate with urinalysis. 4. Prostatomegaly. Probable protrusion of prostatic tissue along the base of the bladder.
== END | disposition home or self-care (01) ==
LOC: RADCTMAIN 14:41
PROVIDERS: ATTEND Family Medicine
DX: N13.2 Hydronephrosis with renal and ureteral calculous obstruction (principal)
CPT/HCPCS: 74176

== ENCOUNTER 2024-07-10 12:25 | Inpatient (IN) | payer MEDICARE ==
[2024-07-10] MEDS: TICAGRELOR 90 MG TAB PO STA (14:42)
[2024-07-10] MEDS: IV FLUID CONTINUATION 200 ML IV ONE (17:32)
[2024-07-10] MEDS: MIDAZOLAM 2 MG/2 ML VIAL IVP ONE (18:15)
[2024-07-10] MEDS: HEPARIN SODIUM 1,000 UN/ML (10ML VL) IVP ONE (18:15)
[2024-07-10] MEDS: HEPARIN SODIUM,PORCINE (1 ML) 2,500 UNIT in SODIUM CHLORIDE 0.9% 250 ML IRRIGATION ONE (18:16)
[2024-07-10] MEDS: HEPARIN SODIUM,PORCINE 10,000 UNIT in SODIUM CHLORIDE 0.9% 1,000 ML IRRIGATION ONE (18:16)
[2024-07-10] MEDS: fentaNYL (PF) 50 MCG/1 ML VIAL IVP ONE (18:43)
[2024-07-10] MEDS: IOPAMIDOL-370 100ML BTL INJ ONE ×2 (19:02→19:43)
[2024-07-10] MEDS: fentaNYL (PF) 50 MCG/ML 2 ML AMP IVP ONE (19:33)
[2024-07-10] MEDS ORDERED: ZOLPIDEM 5 MG TAB PO PRN (19:41)
[2024-07-10] MEDS ORDERED: RX INFO: IV CONTRAST WAS GIVEN 1 EACH MISC MISCELLANE PRN (19:41)
[2024-07-10] MEDS ORDERED: ATROPINE SULFATE 0.1 MG/ML 10ML SYRINGE IV PRN (19:41)
[2024-07-10] MEDS ORDERED: NITROGLYCERIN SL TABS 0.4 MG TAB SUBLINGUAL PRN (19:41)
--- NOTE | 2024-07-10 19:48 | P.PCN ---
Date of Procedure: 07/10/24 Operative Findings: PERCUTANEOUS CORONARY INTERVENTION Performing physician Andre Chaves M.D. Procedure Performed: 1. Successful stenting of the proximal LCx using 3.5 x 28 mm Xience drug-eluting stent with an excellent angiographic results. 2. Successful stenting of the proximal LAD and mid LAD using 3.25 x 28 mm and 2.5 x 15 mm Xience CHAI with an excellent angiographic results 3. Adjunctive use of IVUS 4. Selective right common femoral artery angiogram Indication: Acute non-ST elevation myocardial infarction this 79-year-old gentleman who underwent a heart catheterization revealed critical two-vessel CAD involving the LCx and LAD Approach: Right common femoral artery Complications: None Level of Sedation: Moderate with a sedation length of 85 minutes Procedure Discussion: After attending informed consent the patient was brought to the cardiac [employer]. The sheath at the right common femoral artery was already exist from prior heart catheterization was performed earlier today with anticoagulation was initiated using heparin with continuous ACT monitoring. Subsequently I did en norma the left main using JL 4 guiding catheter with I did wire the left circumflex using a whisper wire. I did do balloon angioplasty using 2.5 mm balloon and subsequently 3.5 mm noncompliant balloon. I had some difficulties advancing the second balloon over the wire but I was able to advance with adjunctive use of GuideLiner. Subsequently attempting advancing 3.5 x 28 mm stent over the GuideLiner was unsuccessful but was successful using a luis wire with Ironman. The stent was positioned under fluoroscopy guidance and deployed under fluoroscopy guidance and subsequently postdilated using 4 mm noncompliant balloon. Please note that IVUS of the left circumflex was performed and showed the vessel to be calcified. Final angiogram showed good angiographic results and the procedure was completed with no complication. After that I directed my wire to wire the LAD and I did IVUS of the LAD was performed and showed also a calcified but not heavily calcified vessel. I did balloon in the LAD using 2.5 mm balloon before I deployed a 3.25 x 28 mm stent where the stent was positioned under fluoroscopy guidance and deployed under fluoroscopy guidance. I did postdilated the stent using 3.0 mm noncompliant balloon in the distal portion and in the proximal portion using 4.5 mm balloon. An angiogram was taken and showed that the area distal to the stent appeared to be hazy and concerning for dissection and I decided to cover that with a stent so I deployed 2.5 x 15 mm Xience. The area of overlap between the 2 stents was dilated using the stent balloon. Final angiogram showed excellent angiographic results and the procedure was completed with no complication Postprocedure Management: 1. Dual antiplatelet therapy using aspirin and Brilinta for at least 12 months 2. Aggressive cholesterol control 3. Risk factors modification
[2024-07-10] MEDS: TICAGRELOR 90 MG TAB PO SCH (23:17)
[2024-07-10] MEDS: ATORVASTATIN 80 MG TAB PO SCH (23:18)
[2024-07-10 23:33] LABS: Glucose,Whole Blood 163 mg/dL (70-110)
[2024-07-11 00:16] LABS: INR 1.2 (<1.2); Partial Thromboplastin Time 23.3 sec (22.0-30.0); Prothrombin Time 12.4 sec (10.0-12.5)
[2024-07-11 00:24] LABS: Basophils % (A) 0 %; Eosinophils # (A) 0.1 k/uL (0-0.7); Eosinophils % (A) 1 %; HCT 41.1 % (39.0-53.0); HGB 12.3 gm/dL (13.0-17.5); Hypochromasia Marked; Lymphocytes # (A) 1.6 k/uL (1.0-4.8); Lymphocytes % (A) 19 %; MCHC 29.9 g/dL (31.0-37.0); MCV 107.1 fL (80.0-100.0); Macrocytosis Moderate; Mean Platelet Volume 8.1; Monocytes # (A) 0.4 k/uL (0-1.0); Monocytes % (A) 5 %; Neutrophils % (A) 74 %; Platelet Count 166 k/uL (150-450); RBC 3.84 m/uL (4.30-5.90); RDW 13.2 % (11.5-15.5); WBC 8.2 k/uL (3.8-10.6)
[2024-07-11] MEDS: SODIUM CHLORIDE 0.9% 1,000 ML in EMPTY BAG 1 BAG IV SCH (00:33)
[2024-07-11] MEDS: SODIUM CHLORIDE 0.9% 500 ML 500 ML IV ONE (00:33)
[2024-07-11 06:30] LABS: Basophils % (A) 0 %; Eosinophils # (A) 0.1 k/uL (0-0.7); Eosinophils % (A) 1 %; HCT 37.7 % (39.0-53.0); HGB 11.5 gm/dL (13.0-17.5); Lymphocytes # (A) 0.6 k/uL (1.0-4.8); Lymphocytes % (A) 6 %; MCH 31.2 pg (25.0-35.0); MCHC 30.5 g/dL (31.0-37.0); MCV 102.2 fL (80.0-100.0); Macrocytosis Slight; Mean Platelet Volume 8.5; Monocytes # (A) 0.5 k/uL (0-1.0); Monocytes % (A) 5 %; Neutrophils # (A) 9.6 k/uL (1.3-7.7); Neutrophils % (A) 88 %; Platelet Count 141 k/uL (150-450); RBC 3.69 m/uL (4.30-5.90); RDW 13.8 % (11.5-15.5)
[2024-07-11 06:46] LABS: African American GFR (CKD) >90 (>60 ml/min/1.73 sqM); Anion Gap 9 mmol/L; Blood Urea Nitrogen 21 mg/dL (9-20); Calcium 8.3 mg/dL (8.4-10.2); Carbon Dioxide 22 mmol/L (22-30); Chloride 105 mmol/L (98-107); Glucose 100 mg/dL (74-99); Non-African American GFR(CKD) 79 (>60 ml/min/1.73 sqM); Sodium 136 mmol/L (137-145)
[2024-07-11] MEDS: ASPIRIN 81 MG PO SCH (07:50)
[2024-07-11] MEDS: lisinopriL 10 MG TAB PO SCH (07:50)
[2024-07-11] MEDS: carvediloL 3.125 MG TAB PO SCH (11:08)
--- NOTE | 2024-07-11 11:50 | P.HPIM ---
History of Present Illness Patient is a pleasant 79-year-old male was transferred to [facility] for management of acute non-ST elevation myocardial infarction and underwent cardiac catheterization in the morning of progressive disease involving left circumflex and LAD. Patient underwent cardiac catheterization and stenting to both these vessels clinically doing well except for mild complication of hematoma at the insertion site. Insertion. Patient's vitals are stable. REVIEW OF SYSTEMS: All other systems are negative except those mentioned in the HPI PHYSICAL EXAMINATION: GENERAL: The patient is alert and oriented x3, not in any acute distress. Well developed, well nourished. HEENT: Pupils are round and equally reacting to light. EOMI. No scleral icterus. No conjunctival pallor. Normocephalic, atraumatic. No pharyngeal erythema. No thyromegaly. CARDIOVASCULAR: S1 and S2 present. No murmurs, rubs, or gallops. PULMONARY: Chest is clear to auscultation, no wheezing or crackles. ABDOMEN: Soft, nontender, nondistended, normoactive bowel sounds. No palpable organomegaly. MUSCULOSKELETAL: No joint swelling or deformity. EXTREMITIES: No cyanosis, clubbing, or pedal edema. NEUROLOGICAL: Gross neurological examination did not reveal any focal deficits. SKIN: No rashes. Assessment and plan Acute non-ST elevation microinfarction status post cardiac catheterization and stenting of left circumflex and LAD. Continue dual antiplatelet therapy statin high-dose statin beta-marya lisinopril. Macrocytosis will obtain B12 levels -Hyperlipidemia -Hypertension -[place] in the past -Coronary disease in the past DVT prophylaxis:-Post cardiac catheterization dual antiplatelet therapy Past Medical History Past Medical History: Chest Pain / Angina, CVA/TIA, Hearing Disorder / Deafness, Hypertension, Myocardial Infarction ([place]) Additional Past Medical History / Comment(s): Patient states he has had stents and heart cath but unsure of the date and how many stents. pt thinsk about 2 stents. TIA. [place]. 3 stents placed 07/10/2024 myasthenia gravis 2021 Last Myocardial Infarction Date:: 1990 History of Any Multi-Drug Resistant Organisms: None Reported Past Surgical History: Heart Catheterization With Stent, Tonsillectomy Additional Past Surgical History / Comment(s): VASECTOMY Past Anesthesia/Blood Transfusion Reactions: No Reported Reaction Date of Last Stent Placement:: 07/10/2024 Past Psychological History: No Psychological Hx Reported Smoking Status: Never smoker Past Alcohol Use History: None Reported Additional Past Alcohol Use History / Comment(s): STARTED SMOKING AT 14 QUIT AT AGE 16 SMOKED 1/2PPD OR A PIPE Past Drug Use History: None Reported - Past Family History Father Family Medical History: Myocardial Infarction ([place]) Additional Family Medical History / Comment(s): Father at 52 from [place] Mother Family Medical History: Cancer Additional Family Medical History / Comment(s): SKIN CANCER Medications and Allergies Home Medications Medication Instructions Recorded Confirmed Type Isosorbide Mononitrate [Ismo] 20 mg PO BID 08/29/14 07/10/24 History Niacin [Niaspan] 1,000 mg PO DAILY 08/29/14 07/10/24 History Simvastatin [Zocor] 20 mg PO HS 08/29/14 07/10/24 History Doxazosin [Cardura] 4 mg PO DAILY 05/02/16 07/10/24 History Vitamin B Complex 1 cap PO DAILY 01/05/21 07/10/24 History Ascorbic Acid [Vitamin C] 500 mg PO DAILY 07/10/24 07/10/24 History Famotidine [Pepcid] 20 mg PO DAILY 07/10/24 07/10/24 History Ketorolac 0.5% Ophth Soln [Acular 1 drop RIGHT EYE BID 07/10/24 07/10/24 History 0.5%] Nitroglycerin Sl Tabs [Nitrostat] 0.4 mg SUBLINGUAL Q5M PRN 07/10/24 07/10/24 History Tamsulosin [Flomax] 0.4 mg PO DAILY 07/10/24 07/10/24 History Zinc Gluconate [Zinc] 50 mg PO DAILY 07/10/24 07/10/24 History predniSONE 10 mg PO DAILY 07/10/24 07/10/24 History prednisoLONE ACETATE 1% OPHTH 1 drop RIGHT EYE BID 07/10/24 07/10/24 History [Pred Forte 1%] Allergies Allergy/AdvReac Type Severity Reaction Status Date / Time latex Allergy Dyspnea Verified 07/10/24 20:29 Physical Exam Vitals: Vital Signs Temp Pulse Pulse Pulse Resp BP BP 07/11/24 11:06 86 16 113/57 07/11/24 08:05 64 07/11/24 07:51 98.2 F 64 17 108/74 07/11/24 07:48 98.2 F 64 17 108/74 07/11/24 05:56 59 L 16 105/69 07/11/24 03:40 68 16 111/63 07/11/24 01:48 54 L 16 07/11/24 01:35 54 L 16 99/56 07/11/24 01:15 59 L 16 92/52 07/11/24 00:53 57 L 16 87/50 07/11/24 00:15 56 L 18 104/52 07/10/24 23:55 106/58 07/10/24 23:45 101/57 07/10/24 23:35 81/56 07/10/24 23:30 120 H 26 H 67/44 07/10/24 22:47 54 L 18 142/64 07/10/24 22:42 54 L 18 150/66 07/10/24 22:37 50 L 18 158/73 07/10/24 22:32 50 L 18 151/77 07/10/24 22:27 54 L 18 154/79 07/10/24 22:22 52 L 18 157/75 07/10/24 22:17 53 L 18 154/76 07/10/24 21:25 46 L 16 158/70 07/10/24 20:55 48 L 16 169/75 07/10/24 20:40 52 L 16 154/64 07/10/24 20:25 46 L 16 151/68 07/10/24 20:10 97.6 F 46 L 17 146/67 07/10/24 14:23 97.0 F L 52 L 18 118/55 147/67 Pulse Ox 07/11/24 11:06 97 07/11/24 08:05 07/11/24 07:51 98 07/11/24 07:48 97 07/11/24 05:56 98 07/11/24 03:40 98 07/11/24 01:48 07/11/24 01:35 99 07/11/24 01:15 97 07/11/24 00:53 97 07/11/24 00:15 98 07/10/24 23:55 07/10/24 23:45 07/10/24 23:35 07/10/24 23:30 98 07/10/24 22:47 98 07/10/24 22:42 97 07/10/24 22:37 97 07/10/24 22:32 98 07/10/24 22:27 98 07/10/24 22:22 99 07/10/24 22:17 100 07/10/24 21:25 99 07/10/24 20:55 98 07/10/24 20:40 99 07/10/24 20:25 99 07/10/24 20:10 100 07/10/24 14:23 97 Intake and Output 07/10/24 07/11/24 07/11/24 22:59 06:59 14:59 Intake Total 790 240 Output Total 1050 300 Balance -260 -300 240 Intake: IV 250 Oral 540 240 Output: Urine 1050 300 Other: Voiding Method Toilet Toilet Urinal Urinal Urinal Weight 87.5 kg Results CBC & Chem 7: 07/11/24 05:30 07/11/24 05:30 Labs: Abnormal Lab Results - Last 24 Hours (Table) 07/10/24 07/10/24 07/10/24 Range/Units 23:31 23:41 23:45 WBC (3.8-10.6) k/uL RBC 3.84 L (4.30-5.90) m/uL Hgb 12.3 L (13.0-17.5) gm/dL Hct (39.0-53.0) % MCV 107.1 H (80.0-100.0) fL MCHC 29.9 L (31.0-37.0) g/dL Plt Count (150-450) k/uL Neutrophils # (1.3-7.7) k/uL Lymphocytes # (1.0-4.8) k/uL INR 1.2 H (<1.2) Sodium (137-145) mmol/L BUN (9-20) mg/dL Glucose (74-99) mg/dL POC Glucose (mg/dL) 163 H (70-110) mg/dL Calcium (8.4-10.2) mg/dL 07/11/24 07/11/24 Range/Units 05:30 05:30 WBC 11.0 H (3.8-10.6) k/uL RBC 3.69 L (4.30-5.90) m/uL Hgb 11.5 L (13.0-17.5) gm/dL Hct 37.7 L (39.0-53.0) % MCV 102.2 H (80.0-100.0) fL MCHC 30.5 L (31.0-37.0) g/dL Plt Count 141 L (150-450) k/uL Neutrophils # 9.6 H (1.3-7.7) k/uL Lymphocytes # 0.6 L (1.0-4.8) k/uL INR (<1.2) Sodium 136 L (137-145) mmol/L BUN 21 H (9-20) mg/dL Glucose 100 H (74-99) mg/dL POC Glucose (mg/dL) (70-110) mg/dL Calcium 8.3 L (8.4-10.2) mg/dL Thrombosis Risk Factor Assmnt - Choose All That Apply Any of the Below Risk Factors Present?: No Other Risk Factors: Yes Each Risk Factor Represents 3 Points: Age 75 years or older Other congenital or acquired thrombophilia - If yes, enter type in comment: No Thrombosis Risk Factor Assessment Total Risk Factor Score: 3 Thrombosis Risk Factor Assessment Level: Moderate Risk
[2024-07-11 12:02] VITALS: BMI 31.1
--- NOTE | 2024-07-11 20:42 | P.CRDCN ---
History of Present Illness Consult date: 07/11/24 History of present illness: HISTORY OF PRESENTING ILLNESS: Patient is a 79-year-old male who was transferred from [facility] because of NSTEMI. He underwent a cardiac catheterization yesterday which showed severe disease in LCx and LAD thereafter receiving PCI to both the vessels. Postoperatively he has been doing well. Patient denies any chest pain chest pressure shortness of breath His right common femoral access site appears to be intact with no signs of hematoma or bleeding. REVIEW OF SYSTEMS: 14 point review of system is negative except what is mentioned above in HPI. PHYSICAL EXAMINATION: Neck: Brisk carotid upstroke, no jugular venous distention. Lungs: Clear to auscultation. Heart: Regular rate and rhythm, S1-S2, , no murmur or rub. Abdomen: Soft nontender, positive bowel sounds. Extremities: No edema, intact distal pulses. Neuro: Alert, oritented, no focal deficits. Detailed neuro exam was not performed. ASSESSMENT: # NSTEMI # CAD status post PCI to LAD and LCx # Essential hypertension # Dyslipidemia PLAN: Continue aspirin, Brilinta 90 mg twice daily, Lipitor, Coreg 3.125 mg twice daily, lisinopril 10 mg daily, If hemodynamically stable, anticipate discharge tomorrow a.m. Recommend outpatient follow-up with primary water hauler Recommend outpatient cardiac rehab Jin Aparicio MD, [facility], [place] Thank you for allowing [facility] to participate in this patient's care. Feel free to reach out in case of any followup questions. Past Medical History Past Medical History: Chest Pain / Angina, CVA/TIA, Hearing Disorder / Deafness, Hypertension, Myocardial Infarction ([place]) Additional Past Medical History / Comment(s): Patient states he has had stents and heart cath but unsure of the date and how many stents. pt thinsk about 2 stents. TIA. [place]. 3 stents placed 07/10/2024 myasthenia gravis 2021 Last Myocardial Infarction Date:: 1990 History of Any Multi-Drug Resistant Organisms: None Reported Past Surgical History: Heart Catheterization With Stent, Tonsillectomy Additional Past Surgical History / Comment(s): VASECTOMY Past Anesthesia/Blood Transfusion Reactions: No Reported Reaction Date of Last Stent Placement:: 07/10/2024 Past Psychological History: No Psychological Hx Reported Smoking Status: Never smoker Past Alcohol Use History: None Reported Additional Past Alcohol Use History / Comment(s): STARTED SMOKING AT 14 QUIT AT AGE 16 SMOKED 1/2PPD OR A PIPE Past Drug Use History: None Reported - Past Family History Father Family Medical History: Myocardial Infarction ([place]) Additional Family Medical History / Comment(s): Father at 52 from [place] Mother Family Medical History: Cancer Additional Family Medical History / Comment(s): SKIN CANCER Medications and Allergies Home Medications Medication Instructions Recorded Confirmed Type Isosorbide Mononitrate [Ismo] 20 mg PO BID 08/29/14 07/10/24 History Niacin [Niaspan] 1,000 mg PO DAILY 08/29/14 07/10/24 History Simvastatin [Zocor] 20 mg PO HS 08/29/14 07/10/24 History Doxazosin [Cardura] 4 mg PO DAILY 05/02/16 07/10/24 History Vitamin B Complex 1 cap PO DAILY 01/05/21 07/10/24 History Ascorbic Acid [Vitamin C] 500 mg PO DAILY 07/10/24 07/10/24 History Famotidine [Pepcid] 20 mg PO DAILY 07/10/24 07/10/24 History Ketorolac 0.5% Ophth Soln [Acular 1 drop RIGHT EYE BID 07/10/24 07/10/24 History 0.5%] Nitroglycerin Sl Tabs [Nitrostat] 0.4 mg SUBLINGUAL Q5M PRN 07/10/24 07/10/24 History Tamsulosin [Flomax] 0.4 mg PO DAILY 07/10/24 07/10/24 History Zinc Gluconate [Zinc] 50 mg PO DAILY 07/10/24 07/10/24 History predniSONE 10 mg PO DAILY 07/10/24 07/10/24 History prednisoLONE ACETATE 1% OPHTH 1 drop RIGHT EYE BID 07/10/24 07/10/24 History [Pred Forte 1%] Allergies Allergy/AdvReac Type Severity Reaction Status Date / Time latex Allergy Dyspnea Verified 07/10/24 20:29 Physical Exam Vitals: Vital Signs Temp Pulse Pulse Resp BP BP Pulse Ox 07/11/24 15:01 63 15 104/57 99 07/11/24 11:06 86 16 113/57 97 07/11/24 08:05 64 07/11/24 07:51 98.2 F 64 17 108/74 98 07/11/24 07:48 98.2 F 64 17 108/74 97 07/11/24 05:56 59 L 16 105/69 98 07/11/24 03:40 68 16 111/63 98 07/11/24 01:48 54 L 16 07/11/24 01:35 54 L 16 99/56 99 07/11/24 01:15 59 L 16 92/52 97 07/11/24 00:53 57 L 16 87/50 97 07/11/24 00:15 56 L 18 104/52 98 07/10/24 23:55 106/58 07/10/24 23:45 101/57 07/10/24 23:35 81/56 07/10/24 23:30 120 H 26 H 67/44 98 07/10/24 22:47 54 L 18 142/64 98 07/10/24 22:42 54 L 18 150/66 97 07/10/24 22:37 50 L 18 158/73 97 07/10/24 22:32 50 L 18 151/77 98 07/10/24 22:27 54 L 18 154/79 98 07/10/24 22:22 52 L 18 157/75 99 07/10/24 22:17 53 L 18 154/76 100 07/10/24 21:25 46 L 16 158/70 99 07/10/24 20:55 48 L 16 169/75 98 Intake and Output 07/11/24 07/11/24 07/11/24 06:59 14:59 22:59 Intake Total 480 120 Output Total 300 Balance -300 480 120 Intake: Oral 480 120 Output: Urine 300 Other: Voiding Method Toilet Urinal Urinal # Voids 1 Weight 87.5 kg 87.5 kg Results 07/11/24 05:30 07/11/24 05:30 Coagulation 07/10/24 Range/Units 23:45 PT 12.4 (10.0-12.5) sec APTT 23.3 (22.0-30.0) sec CBC 07/10/24 07/11/24 Range/Units 23:41 05:30 WBC 8.2 11.0 H (3.8-10.6) k/uL RBC 3.84 L 3.69 L (4.30-5.90) m/uL Hgb 12.3 L 11.5 L (13.0-17.5) gm/dL Hct 41.1 37.7 L (39.0-53.0) % Plt Count 166 141 L (150-450) k/uL Comprehensive Metabolic Panel 07/11/24 Range/Units 05:30 Sodium 136 L (137-145) mmol/L Potassium 4.0 (3.5-5.1) mmol/L Chloride 105 (98-107) mmol/L Carbon Dioxide 22 (22-30) mmol/L BUN 21 H (9-20) mg/dL Creatinine 0.91 (0.66-1.25) mg/dL Glucose 100 H (74-99) mg/dL Calcium 8.3 L (8.4-10.2) mg/dL Current Medications Generic Name Dose Route Start Last Admin Trade Name Freq PRN Reason Stop Dose Admin Al Hydroxide/Mg Hydroxide 30 ml 07/10/24 19:41 Mag Hydrox/Al Hydrox/Simeth 30 Ml Cup PO Q4HR PRN Heartburn Aspirin 81 mg 07/11/24 09:00 07/11/24 07:50 Aspirin 81 Mg PO 81 mg DAILY RICARDA Administration Atorvastatin Calcium 80 mg 07/10/24 21:00 07/11/24 20:38 Atorvastatin 80 Mg Tab PO 80 mg HS RICARDA Administration Atropine Sulfate 0.5 mg 07/10/24 19:41 Atropine Sulfate 0.1 Mg/Ml 10ml Syringe IV ONCE PRN Symptomatic Bradycardia Carvedilol 3.125 mg 07/11/24 09:30 07/11/24 16:46 Carvedilol 3.125 Mg Tab PO 3.125 mg BID-W/MEALS RICARDA Administration Lisinopril 10 mg 07/11/24 09:00 07/11/24 07:50 Lisinopril 10 Mg Tab PO 10 mg DAILY RICARDA Administration Miscellaneous Information 1 each 07/10/24 19:41 Rx Info: Iv Contrast Was Given 1 Each Misc MISCELLANE 07/12/24 19:41 DAILY PRN Per Protocol Nitroglycerin 0.4 mg 07/10/24 19:41 Nitroglycerin Sl Tabs 0.4 Mg Tab SUBLINGUAL Q5M PRN Chest Pain Ticagrelor 90 mg 07/10/24 21:00 07/11/24 20:38 Ticagrelor 90 Mg Tab PO 90 mg BID RICARDA Administration Protocol Zolpidem Tartrate 5 mg 07/10/24 19:41 Zolpidem 5 Mg Tab PO HS PRN Insomnia Intake and Output 07/11/24 07/11/24 07/11/24 06:59 14:59 22:59 Intake Total 480 120 Output Total 300 Balance -300 480 120 Intake: Oral 480 120 Output: Urine 300 Other: Voiding Method Toilet Urinal Urinal # Voids 1 Weight 87.5 kg 87.5 kg Patient Weight 07/12/24 06:59 Weight 87.5 kg 07/11/24 05:30 07/11/24 05:30
[2024-07-12 08:01] LABS: HCT 32.5 % (39.0-53.0); HGB 10.6 gm/dL (13.0-17.5); MCH 33.6 pg (25.0-35.0); MCHC 32.7 g/dL (31.0-37.0); MCV 102.8 fL (80.0-100.0); Macrocytosis Slight; Mean Platelet Volume 8.6; Platelet Count 126 k/uL (150-450); RBC 3.16 m/uL (4.30-5.90); RDW 13.6 % (11.5-15.5); WBC 10.6 k/uL (3.8-10.6)
[2024-07-12 08:16] LABS: African American GFR (CKD) 85 (>60 ml/min/1.73 sqM); Anion Gap 4 mmol/L; Blood Urea Nitrogen 20 mg/dL (9-20); Calcium 8.4 mg/dL (8.4-10.2); Carbon Dioxide 27 mmol/L (22-30); Chloride 106 mmol/L (98-107); Glucose 88 mg/dL (74-99); Non-African American GFR(CKD) 74 (>60 ml/min/1.73 sqM); Potassium 3.6 mmol/L (3.5-5.1); Sodium 137 mmol/L (137-145)
--- NOTE | 2024-07-12 11:40 | P.PN ---
Subjective Patient is a pleasant 79-year-old male was transferred to [facility] for management of acute non-ST elevation myocardial infarction and underwent cardiac catheterization in the morning of progressive disease involving left circumflex and LAD. Patient underwent cardiac catheterization and stenting to both these vessels clinically doing well except for mild complication of hematoma at the insertion site. Insertion. Patient's vitals are stable. 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 REVIEW OF SYSTEMS: 14 point system review are negative except for as mentioned above Active Medications Generic Name Dose Route Start Last Admin Trade Name Freq PRN Reason Stop Dose Admin Al Hydroxide/Mg Hydroxide 30 ml 07/10/24 19:41 Mag Hydrox/Al Hydrox/Simeth 30 Ml Cup PO Q4HR PRN Heartburn Aspirin 81 mg 07/11/24 09:00 07/12/24 08:41 Aspirin 81 Mg PO 81 mg DAILY RICARDA Administration Atorvastatin Calcium 80 mg 07/10/24 21:00 07/11/24 20:38 Atorvastatin 80 Mg Tab PO 80 mg HS RICARDA Administration Atropine Sulfate 0.5 mg 07/10/24 19:41 Atropine Sulfate 0.1 Mg/Ml 10ml Syringe IV ONCE PRN Symptomatic Bradycardia Carvedilol 3.125 mg 07/11/24 09:30 07/12/24 06:36 Carvedilol 3.125 Mg Tab PO 3.125 mg BID-W/MEALS RICARDA Administration Lisinopril 10 mg 07/11/24 09:00 07/12/24 08:41 Lisinopril 10 Mg Tab PO 10 mg DAILY RICARDA Administration Miscellaneous Information 1 each 07/10/24 19:41 Rx Info: Iv Contrast Was Given 1 Each Misc MISCELLANE 07/12/24 19:41 DAILY PRN Per Protocol Nitroglycerin 0.4 mg 07/10/24 19:41 Nitroglycerin Sl Tabs 0.4 Mg Tab SUBLINGUAL Q5M PRN Chest Pain Nystatin 1 applic 07/12/24 11:30 Nystatin 100,000 Unit/Gm Powd 15 Gm TOPICAL BID [facility] Protocol Ticagrelor 90 mg 07/10/24 21:00 07/12/24 08:41 Ticagrelor 90 Mg Tab PO 90 mg BID [facility] Administration Protocol Zolpidem Tartrate 5 mg 07/10/24 19:41 Zolpidem 5 Mg Tab PO HS PRN Insomnia Objective - Vital Signs Vital signs: Vital Signs Temp 97.9 F 07/12/24 08:40 Pulse 82 07/12/24 08:40 Resp 16 07/12/24 08:40 BP 99/59 07/12/24 08:40 Pulse Ox 98 07/12/24 08:40 FiO2 Intake & Output 07/11/24 07/12/24 07/12/24 18:59 06:59 18:59 Intake Total 600 900 180 Output Total 200 Balance 600 700 180 Weight 87.5 kg 87.6 kg Intake: Oral 600 900 180 Output: Urine 200 Other: Voiding Method Urinal Urinal Urinal # Voids 1 1 # Bowel Movements 1 - Exam GENERAL: The patient is alert and oriented x3, not in any acute distress. Well developed, well nourished. HEENT: Pupils are round and equally reacting to light. EOMI. No scleral icterus. No conjunctival pallor. Normocephalic, atraumatic. No pharyngeal erythema. No thyromegaly. CARDIOVASCULAR: S1 and S2 present. No murmurs, rubs, or gallops. PULMONARY: Chest is clear to auscultation, no wheezing , no crackles. -ABDOMEN: Soft, nontender, nondistended, normoactive bowel sounds. No palpable organomegaly. Right groin hematoma extending to the back into the scrotum, scrotum swelling and tenderness MUSCULOSKELETAL: No joint swelling or deformity. EXTREMITIES: No cyanosis, clubbing, or pedal edema. NEUROLOGICAL: Gross neurological examination did not reveal any focal deficits. SKIN: No rashes. no petechiae. - Labs CBC & Chem 7: 07/12/24 06:51 07/12/24 06:51 Labs: Abnormal Lab Results - Last 24 Hours (Table) 07/11/24 07/12/24 Range/Units 12:15 06:51 RBC 3.16 L (4.30-5.90) m/uL Hgb 10.6 L (13.0-17.5) gm/dL Hct 32.5 L (39.0-53.0) % MCV 102.8 H (80.0-100.0) fL Plt Count 126 L (150-450) k/uL Vitamin B12 2123.0 H (200.0-944.0) pg/mL Assessment and Plan Assessment: Assessment and plan Acute non-ST elevation microinfarction status post cardiac catheterization and stenting of left circumflex and LAD. Continue dual antiplatelet therapy statin high-dose statin beta-marya lisinopril. Macrocytosis will obtain B12 levels -Right groin hematoma extending to the back and scrotum, rule out retroperitoneal hematoma. Follow-up CT of the abdomen and pelvis. Urology consult -Hyperlipidemia -Hypertension -[place] in the past -Coronary disease in the past DVT prophylaxis:-Post cardiac catheterization dual antiplatelet therapy
[2024-07-12] MEDS: NYSTATIN 100,000 UNIT/GM POWD 15 GM TOPICAL SCH (11:50)
[2024-07-12] MEDS: ACETAMINOPHEN TAB 325 MG TAB PO STA (12:34)
--- NOTE | 2024-07-12 13:23 | CT ---
EXAMINATION TYPE: CT abdomen pelvis w con DATE OF EXAM: 07/12/2024 COMPARISON: 01/10/2022 CLINICAL INDICATION: Male, 79 years old with history of retro peritoneal hematoma; PHH, Retroperitona l hematoma TECHNIQUE: Performed without Oral Contrast and with IV Contrast, patient injected with 100 ml mL of Isovue 300. CT DLP: 1451.[address] CTDI: mGy Automated exposure control for dose reduction was used. FINDINGS: The lung bases are clear. The gallbladder is normal without distention, wall thickening, pericholecystic fluid or gallstones. T here is no biliary ductal dilatation. There is no focal mass or organomegaly involving the liver, pancreas, spleen or adrenal glands. There is mild renal atrophy. There are 2 nonobstructing left renal calcifications each measuring approximately 5 mm. There are no right renal calcifications. There is a 3.3 cm infrarenal abdominal aortic aneurysm. There is no retroperitoneal adenopathy or hemorrhage. The bowel loops are normal in caliber and there is no evidence of dilatation or obstruction. No infla mmatory changes are identified in the bowel wall or mesentery. There is diverticulosis without divert iculitis. There is no free intraperitoneal air or fluid. There is marked prostatic hypertrophy. There are fat-containing bilateral inguinal hernias. In the right groin soft tissues, there is a 3.5 x 2.1 cm ill-defined density most likely representing focal hematoma. The osseous structures and soft tissues are intact. IMPRESSION: 1. Right groin hematoma as described above. 2. 2 nonobstructing 5 mm left renal calcifications and mild renal atrophy. 3. Marked prostatic hypertrophy 4. Multilevel degenerative disease and grade 1 anterolisthesis of L4 on L5. [facility], , 07/12/2024 1:20 PM
[2024-07-12 16:17] LABS: Glucose,Whole Blood 115 mg/dL (70-110)
[2024-07-12] MEDS: IRON PS CMPLX/VIT B12/FA 1 EACH CAP PO SCH (16:38)
[2024-07-13 08:09] LABS: Basophils % (A) 0 %; Eosinophils # (A) 0.2 k/uL (0-0.7); Eosinophils % (A) 2 %; HCT 32.9 % (39.0-53.0); HGB 10.7 gm/dL (13.0-17.5); Lymphocytes # (A) 0.9 k/uL (1.0-4.8); Lymphocytes % (A) 11 %; MCH 33.1 pg (25.0-35.0); MCHC 32.7 g/dL (31.0-37.0); MCV 101.1 fL (80.0-100.0); Macrocytosis Slight; Mean Platelet Volume 8.6; Monocytes # (A) 0.5 k/uL (0-1.0); Monocytes % (A) 7 %; Neutrophils # (A) 6.5 k/uL (1.3-7.7); Neutrophils % (A) 79 %; Platelet Count 126 k/uL (150-450); RBC 3.25 m/uL (4.30-5.90); RDW 14.1 % (11.5-15.5); WBC 8.2 k/uL (3.8-10.6)
[2024-07-13 08:28] LABS: African American GFR (CKD) 73 (>60 ml/min/1.73 sqM); Anion Gap 6 mmol/L; Blood Urea Nitrogen 20 mg/dL (9-20); Calcium 8.6 mg/dL (8.4-10.2); Carbon Dioxide 28 mmol/L (22-30); Chloride 103 mmol/L (98-107); Glucose 83 mg/dL (74-99); Non-African American GFR(CKD) 63 (>60 ml/min/1.73 sqM); Potassium 3.9 mmol/L (3.5-5.1); Sodium 137 mmol/L (137-145)
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
--- NOTE | 2024-07-13 19:02 | P.PN ---
Subjective Progress Note Date: 07/12/24 HISTORY OF PRESENTING ILLNESS: Patient is a 79-year-old male who was transferred from [facility] because of NSTEMI. He underwent a cardiac catheterization yesterday which showed severe disease in LCx and LAD thereafter receiving PCI to both the vessels. Postoperatively he has been doing well. Patient denies any chest pain chest pressure shortness of breath His right common femoral access site appears to be intact with no signs of hematoma or bleeding. Progress note 07/12/2024 It is noted that patient has a large ecchymosis and a small hematoma in the right groin. For this I will obtain a CT abdominal pelvis with contrast to make sure there is no large collection of retroperitoneal hematoma or any thigh hematoma. I will follow-up with the CT scan results I did not see any significant large hematoma. He is hemoglobin has been stable. Denies any chest pain chest pressure. PHYSICAL EXAMINATION: Neck: Brisk carotid upstroke, no jugular venous distention. Lungs: Clear to auscultation. Heart: Regular rate and rhythm, S1-S2, , no murmur or rub. Abdomen: Soft nontender, positive bowel sounds. Extremities: No edema, intact distal pulses. Neuro: Alert, oritented, no focal deficits. Detailed neuro exam was not performed. ASSESSMENT: # NSTEMI # CAD status post PCI to LAD and LCx # Essential hypertension # Dyslipidemia PLAN: Continue aspirin, Brilinta 90 mg twice daily, Lipitor, Coreg 3.125 mg twice daily, lisinopril 10 mg daily, If hemodynamically stable, anticipate discharge tomorrow a.m. Recommend outpatient follow-up with primary business office assistant Recommend outpatient cardiac rehab Objective - Vital Signs Vital signs: Vital Signs Temp 97.4 F L 07/13/24 11:45 Pulse 70 07/13/24 16:30 Resp 18 07/13/24 16:30 BP 109/72 07/13/24 16:30 Pulse Ox 100 07/13/24 16:30 FiO2 Intake & Output 07/13/24 07/13/24 07/14/24 06:59 18:59 06:59 Intake Total 550 Output Total 250 Balance 300 Weight Intake: Oral 550 Output: Urine 250 Other: Voiding Method Urinal # Voids 2 - Labs CBC & Chem 7: 07/13/24 07:15 07/13/24 07:15 Labs: Abnormal Lab Results - Last 24 Hours (Table) 07/13/24 Range/Units 07:15 RBC 3.25 L (4.30-5.90) m/uL Hgb 10.7 L (13.0-17.5) gm/dL Hct 32.9 L (39.0-53.0) % MCV 101.1 H (80.0-100.0) fL Plt Count 126 L (150-450) k/uL Lymphocytes # 0.9 L (1.0-4.8) k/uL
--- NOTE | 2024-07-13 19:04 | P.PN ---
Subjective Progress Note Date: 07/13/24 HISTORY OF PRESENTING ILLNESS: Patient is a 79-year-old male who was transferred from [facility] because of NSTEMI. He underwent a cardiac catheterization yesterday which showed severe disease in LCx and LAD thereafter receiving PCI to both the vessels. Postoperatively he has been doing well. Patient denies any chest pain chest pressure shortness of breath His right common femoral access site appears to be intact with no signs of hematoma or bleeding. Progress note 07/12/2024 It is noted that patient has a large ecchymosis and a small hematoma in the right groin. For this I will obtain a CT abdominal pelvis with contrast to make sure there is no large collection of retroperitoneal hematoma or any thigh hematoma. I will follow-up with the CT scan results I did not see any significant large hematoma. He is hemoglobin has been stable. Denies any chest pain chest pressure. 07/13/2024 This morning blood pressure was 90/55, however repeat was 130/59, heart rate is 79 bpm, sinus rhythm on telemetry No new cardiovascular complaints Ecchymosis in the groin appears to be stable with no new changes. PHYSICAL EXAMINATION: Neck: Brisk carotid upstroke, no jugular venous distention. Lungs: Clear to auscultation. Heart: Regular rate and rhythm, S1-S2, , no murmur or rub. Abdomen: Soft nontender, positive bowel sounds. Extremities: No edema, intact distal pulses. Neuro: Alert, oritented, no focal deficits. Detailed neuro exam was not performed. ASSESSMENT: # NSTEMI # CAD status post PCI to LAD and LCx # Essential hypertension # Dyslipidemia PLAN: Continue aspirin, Brilinta 90 mg twice daily, Lipitor, Coreg 3.125 mg twice daily, Because of low blood pressures and borderline blood pressures, I will reduce his lisinopril from 10 mg to 2.5 mg to be discharged home. At this time patient is cleared from cardiovascular standpoint. Recommend outpatient follow-up with primary plate mill mill hand Recommend outpatient cardiac rehab Objective - Vital Signs Vital signs: Vital Signs Temp 97.4 F L 07/13/24 11:45 Pulse 70 07/13/24 16:30 Resp 18 07/13/24 16:30 BP 109/72 07/13/24 16:30 Pulse Ox 100 07/13/24 16:30 FiO2 Intake & Output 07/13/24 07/13/24 07/14/24 06:59 18:59 06:59 Intake Total 550 Output Total 250 Balance 300 Weight Intake: Oral 550 Output: Urine 250 Other: Voiding Method Urinal # Voids 2 - Labs CBC & Chem 7: 07/13/24 07:15 07/13/24 07:15 Labs: Abnormal Lab Results - Last 24 Hours (Table) 07/13/24 Range/Units 07:15 RBC 3.25 L (4.30-5.90) m/uL Hgb 10.7 L (13.0-17.5) gm/dL Hct 32.9 L (39.0-53.0) % MCV 101.1 H (80.0-100.0) fL Plt Count 126 L (150-450) k/uL Lymphocytes # 0.9 L (1.0-4.8) k/uL
[2024-07-13 20:19] LABS: Appearance,Urine Clear (Clear); Bilirubin,Urine Negative (Negative); Blood,Urine Negative (Negative); Color,Urine Colorless; Glucose,Urine (UA) Negative (Negative); Ketones,Urine Negative (Negative); Leukocyte Esterase,Urine Negative (Negative); Nitrite,Urine Negative (Negative); PH, Urine 6.5 (5.0-8.0); Protein,Urine Negative (Negative); Specific Gravity,Urine 1.012 (1.001-1.035); Urobilinogen,Urine <2.0 mg/dL (<2.0)
[2024-07-14] MEDS: ACETAMINOPHEN TAB 325 MG TAB PO PRN (06:46)
[2024-07-14] MEDS: ZINC OXIDE PASTE (Z-GUARD) 1 APPLIC TOPICAL PRN (09:56)
--- NOTE | 2024-07-14 12:46 | P.PN ---
Subjective Progress Note Date: 07/14/24 HISTORY OF PRESENTING ILLNESS: Patient is a 79-year-old male who was transferred from [facility] because of NSTEMI. He underwent a cardiac catheterization yesterday which showed severe disease in LCx and LAD thereafter receiving PCI to both the vessels. Postoperatively he has been doing well. Patient denies any chest pain chest pressure shortness of breath His right common femoral access site appears to be intact with no signs of hematoma or bleeding. Progress note 07/12/2024 It is noted that patient has a large ecchymosis and a small hematoma in the right groin. For this I will obtain a CT abdominal pelvis with contrast to make sure there is no large collection of retroperitoneal hematoma or any thigh hematoma. I will follow-up with the CT scan results I did not see any significant large hematoma. He is hemoglobin has been stable. Denies any chest pain chest pressure. 07/13/2024 This morning blood pressure was 90/55, however repeat was 130/59, heart rate is 79 bpm, sinus rhythm on telemetry No new cardiovascular complaints Ecchymosis in the groin appears to be stable with no new changes. 07/14 Patient seen and examined. Patient does have ecchymosis to the groin area as we ll as scrotal area. He has had urinary retention for which urology was added. A CAT scan of the abdomen pelvis was done yesterday which revealed 3.5 x 2.1 cm hematoma in the right groin. No complaints of chest pain no shortness of breath. Blood pressure 138/67, heart rate 65, pulse ox 96% on room air. PHYSICAL EXAMINATION: Neck: Brisk carotid upstroke, no jugular venous distention. Lungs: Clear to auscultation. Heart: Regular rate and rhythm, S1-S2, , no murmur or rub. Abdomen: Soft nontender, positive bowel sounds. Extremities: No edema, intact distal pulses. Neuro: Alert, oritented, no focal deficits. Detailed neuro exam was not performed. ASSESSMENT: # NSTEMI # CAD status post PCI to LAD and LCx # Essential hypertension # Dyslipidemia Right groin hematoma PLAN: Continue aspirin, Brilinta 90 mg twice daily, Lipitor, Coreg 3.125 mg twice daily, Lisinopril was reduced from 10 mg to 2.5 mg due to hypotension. Continue to monitor blood pressure. At this time patient is cleared from cardiovascular standpoint. Recommend outpatient follow-up with primary barker peeler Recommend outpatient cardiac rehab Nurse practitioner note has been reviewed, I agree with documented findings and plan of care. Patient was seen and examined. Objective - Vital Signs Vital signs: Vital Signs Temp 97.9 F 07/14/24 03:54 Pulse 79 07/14/24 03:54 Resp 18 07/14/24 03:54 BP 166/77 07/14/24 03:54 Pulse Ox 96 07/14/24 03:54 FiO2 Intake & Output 07/13/24 07/14/24 07/14/24 18:59 06:59 18:59 Intake Total 550 Output Total 250 550 Balance 300 -550 Weight 84.2 kg Intake: Oral 550 Output: Urine 250 550 Other: Voiding Method Urinal # Voids 2 # Bowel Movements 1 - Labs CBC & Chem 7: 07/13/24 07:15 07/13/24 07:15
--- NOTE | 2024-07-14 14:18 | CDI ---
Documentation Clarification Form Date: 07/14/2024 01:20:00 PM From: Mily Prakash RN CCDS Phone: [phone] Admit Date: 07/10/2024 01:47:00 PM Patient Name: Abelino Colon Visit Number: [id number] Discharge Date: ATTENTION: The Clinical Documentation Specialists (CDI) and [facility] Coding Staff appreciate your assistance in clarifying documentation. Please respond to the clarification below the line at the bottom and electronically sign. The CDI & [facility] Coding staff will review the response and follow-up if needed. Please note: Queries are made part of the Legal Health Record. If you have any questions, please contact the author of this message via ITS. Doctor/Provider: Jin Aparicio Right groin hematoma is documented 07/11/2024 and the patient had Cardiac Catheterization 07/10. Additional clarification is requested regarding the relationship, if any, that exists between the diagnosis and the procedure. History/Risk Factors: Patients Admitting Diagnosis: Acute non-ST elevation microinfarction Post-Operative Diagnosis: Procedure performed: Successful stenting of the proximal LCx using 3.5 x 28 mm Xience drug eluting stent with an excellent angiographic results. Successful stenting of the proximal LAD and mid LAD USING 3.25 x 28mm and 2.5 x 15mm Xience CHAI with an excellent angiographic results. Adjunctive use IVUS. Selective right common femoral artery angiogram. Clinical Indicators: 07/12, Medicine note : He has extensive hematoma in the right groin extending to the scrotum, scrotum is swollen tender and with more dark discoloration secondary to the hematoma with some extension into the back as well. 07/22 CT ABD PELVIS: Right groin soft tissues, there is a 3.5 x 2.1 cm ill- defined density most likely representing focal hematoma. The osseous structures and soft tissues are intact. Treatment: Montioring, CT abd pelvis with contrast, (see above) What relationship, if any, exists between the diagnosis of Right groin hematoma and the procedure: [ ] Right groin hematoma is not clinically significant and not a complication [ ] Right groin hematoma is clinically significant and not a complication [ X] Right groin hematoma is clinically significant and a complication [ ] Other please specify ____ [ ] Unable to determine (Template Last Revised: May 2024) MTDD
[2024-07-14] MEDS: MAG HYDROX/AL HYDROX/SIMETH 30 ML CUP PO PRN (14:50)
[2024-07-14] MEDS: predniSONE 5 MG TAB PO SCH (15:32)
[2024-07-14] MEDS ORDERED: ONDANSETRON 4 MG/2 ML VIAL IVP PRN (15:32)
[2024-07-14] MEDS: TAMSULOSIN 0.4 MG CAP.ER.24H PO SCH (17:00)
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
[2024-07-14] MEDS: KETOROLAC 0.5% OPHTH DROPS 5 ML BTL RIGHT EYE SCH (21:36)
[2024-07-14] MEDS: prednisoLONE ACETATE 1% OPHTH DROPS 5 ML BTL RIGHT EYE SCH (21:36)
[2024-07-15 06:43] LABS: Basophils % (A) 0 %; Eosinophils % (A) 0 %; HCT 30.9 % (39.0-53.0); HGB 10.1 gm/dL (13.0-17.5); Lymphocytes # (A) 0.6 k/uL (1.0-4.8); Lymphocytes % (A) 5 %; MCH 32.9 pg (25.0-35.0); MCHC 32.6 g/dL (31.0-37.0); Macrocytosis Slight; Mean Platelet Volume 8.9; Monocytes # (A) 0.6 k/uL (0-1.0); Monocytes % (A) 6 %; Neutrophils # (A) 9.9 k/uL (1.3-7.7); Neutrophils % (A) 88 %; Platelet Count 150 k/uL (150-450); RBC 3.06 m/uL (4.30-5.90); RDW 13.5 % (11.5-15.5); WBC 11.3 k/uL (3.8-10.6)
[2024-07-15] MEDS: NIACIN TR 500 MG CAPLET PO SCH (09:59)
[2024-07-15] MEDS: DOXAZOSIN 4 MG TAB PO SCH (09:59)
--- NOTE | 2024-07-15 12:43 | P.PN ---
Subjective Progress Note Date: 07/15/24 HISTORY OF PRESENTING ILLNESS: Patient is a 79-year-old male who was transferred from [facility] because of NSTEMI. He underwent a cardiac catheterization yesterday which showed severe disease in LCx and LAD thereafter receiving PCI to both the vessels. Postoperatively he has been doing well. Patient denies any chest pain chest pressure shortness of breath His right common femoral access site appears to be intact with no signs of hematoma or bleeding. Progress note 07/12/2024 It is noted that patient has a large ecchymosis and a small hematoma in the right groin. For this I will obtain a CT abdominal pelvis with contrast to make sure there is no large collection of retroperitoneal hematoma or any thigh hematoma. I will follow-up with the CT scan results I did not see any significant large hematoma. He is hemoglobin has been stable. Denies any chest pain chest pressure. 07/13/2024 This morning blood pressure was 90/55, however repeat was 130/59, heart rate is 79 bpm, sinus rhythm on telemetry No new cardiovascular complaints Ecchymosis in the groin appears to be stable with no new changes. 07/14 Patient seen and examined. Patient does have ecchymosis to the groin area as well as scrotal area. He has had urinary retention for which urology was added. A CAT scan of the abdomen pelvis was done yesterday which revealed 3.5 x 2.1 cm hematoma in the right groin. No complaints of chest pain no shortness of breath. Blood pressure 138/67, heart rate 65, pulse ox 96% on room air. 07/15 Patient seen and examined. Patient has Contreras catheter in place, there is noted hematuria. Patient denies chest pain, no shortness of breath. Blood pressure 97/53, heart rate 71, pulse ox 96% on room air. Repeat blood work reveals hemoglobin 10.1, WBC 11.3. PHYSICAL EXAMINATION: Neck: Brisk carotid upstroke, no jugular venous distention. Lungs: Clear to auscultation. Heart: Regular rate and rhythm, S1-S2, , no murmur or rub. Abdomen: Soft nontender, positive bowel sounds. Extremities: No edema, intact distal pulses. Neuro: Alert, oriented, no focal deficits. Detailed neuro exam was not performed. ASSESSMENT: # NSTEMI # CAD status post PCI to LAD and LCx # Essential hypertension # Dyslipidemia Right groin hematoma PLAN: Continue aspirin, Brilinta 90 mg twice daily, Lipitor, Coreg 3.125 mg twice daily, Lisinopril was reduced from 10 mg to 2.5 mg due to hypotension. Continue to monitor blood pressure. At this time patient is cleared from cardiovascular standpoint. Recommend outpatient follow-up with primary tank assembler Recommend outpatient cardiac rehab Nurse practitioner note has been reviewed, I agree with documented findings and plan of care. Patient was seen and examined. Objective - Vital Signs Vital signs: Vital Signs Temp 98.9 F 07/15/24 04:12 Pulse 61 07/15/24 04:12 Resp 16 07/15/24 04:12 BP 103/52 07/15/24 04:12 Pulse Ox 96 07/15/24 04:12 FiO2 Intake & Output 07/14/24 07/15/24 07/15/24 18:59 06:59 18:59 Intake Total 540 240 Output Total 1500 1650 Balance -960 -1650 240 Intake: Oral 540 240 Output: Urine 1500 1650 Uretheral (Contreras) 700 Other: Voiding Method Urinal Indwelling Catheter - Labs CBC & Chem 7: 07/15/24 06:07 07/13/24 07:15 Labs: Abnormal Lab Results - Last 24 Hours (Table) 07/15/24 Range/Units 06:07 WBC 11.3 H (3.8-10.6) k/uL RBC 3.06 L (4.30-5.90) m/uL Hgb 10.1 L (13.0-17.5) gm/dL Hct 30.9 L (39.0-53.0) % MCV 101.0 H (80.0-100.0) fL Neutrophils # 9.9 H (1.3-7.7) k/uL Lymphocytes # 0.6 L (1.0-4.8) k/uL
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
[2024-07-16 08:53] LABS: HCT 31.5 % (39.0-53.0); HGB 9.8 gm/dL (13.0-17.5); MCH 31.9 pg (25.0-35.0); MCHC 31.3 g/dL (31.0-37.0); Macrocytosis Slight; Mean Platelet Volume 9.5; Platelet Count 144 k/uL (150-450); RBC 3.08 m/uL (4.30-5.90); RDW 13.3 % (11.5-15.5)
--- NOTE | 2024-07-16 13:17 | P.PN ---
Subjective Progress Note Date: 07/16/24 HISTORY OF PRESENTING ILLNESS: Patient is a 79-year-old male who was transferred from [facility] because of NSTEMI. He underwent a cardiac catheterization yesterday which showed severe disease in LCx and LAD thereafter receiving PCI to both the vessels. Postoperatively he has been doing well. Patient denies any chest pain chest pressure shortness of breath His right common femoral access site appears to be intact with no signs of hematoma or bleeding. Progress note 07/12/2024 It is noted that patient has a large ecchymosis and a small hematoma in the right groin. For this I will obtain a CT abdominal pelvis with contrast to make sure there is no large collection of retroperitoneal hematoma or any thigh hematoma. I will follow-up with the CT scan results I did not see any significant large hematoma. He is hemoglobin has been stable. Denies any chest pain chest pressure. 07/13/2024 This morning blood pressure was 90/55, however repeat was 130/59, heart rate is 79 bpm, sinus rhythm on telemetry No new cardiovascular complaints Ecchymosis in the groin appears to be stable with no new changes. 07/14 Patient seen and examined. Patient does have ecchymosis to the groin area as well as scrotal area. He has had urinary retention for which urology was added. A CAT scan of the abdomen pelvis was done yesterday which revealed 3.5 x 2.1 cm hematoma in the right groin. No complaints of chest pain no shortness of breath. Blood pressure 138/67, heart rate 65, pulse ox 96% on room air. 07/15 Patient seen and examined. Patient has Contreras catheter in place, there is noted hematuria. Patient denies chest pain, no shortness of breath. Blood pressure 97/53, heart rate 71, pulse ox 96% on room air. Repeat blood work reveals hemoglobin 10.1, WBC 11.3. 07/16 Patient seen and examined. He still has edema to the right groin but the area is soft. Hemoglobin is 9.8. He is waiting for urology evaluation. Blood pressure 108/56, heart rate 62, pulse ox 98% on room air. PHYSICAL EXAMINATION: Neck: Brisk carotid upstroke, no jugular venous distention. Lungs: Clear to auscultation. Heart: Regular rate and rhythm, S1-S2, , no murmur or rub. Abdomen: Soft nontender, positive bowel sounds. Extremities: No edema, intact distal pulses. Neuro: Alert, oriented, no focal deficits. Detailed neuro exam was not performed. ASSESSMENT: # NSTEMI # CAD status post PCI to LAD and LCx # Essential hypertension # Dyslipidemia Right groin hematoma PLAN: Continue aspirin, Brilinta 90 mg twice daily, Lipitor, Coreg 3.125 mg twice daily, Lisinopril 2.5 mg At this time patient is cleared from cardiovascular standpoint. Recommend outpatient follow-up with primary fitness instructor Recommend outpatient cardiac rehab Nurse practitioner note has been reviewed, I agree with documented findings and plan of care. Patient was seen and examined. Objective - Vital Signs Vital signs: Vital Signs Temp 98.0 F 07/16/24 08:00 Pulse 62 07/16/24 08:00 Resp 16 07/16/24 08:00 BP 108/56 07/16/24 08:00 Pulse Ox 98 07/16/24 08:00 FiO2 Intake & Output 07/15/24 07/16/24 07/16/24 18:59 06:59 18:59 Intake Total 720 260 Output Total 2400 Balance 720 -2140 Weight 84.5 kg Intake: IV 20 Invasive Line 1 10 Invasive Line 2 10 Oral 720 240 Output: Urine 2400 Other: Voiding Method Indwelling Catheter Indwelling Catheter # Bowel Movements 0 - Labs CBC & Chem 7: 07/16/24 08:22 07/13/24 07:15
[2024-07-17 09:00] VITALS: RESP 16
--- NOTE | 2024-07-17 10:51 | US ---
EXAMINATION TYPE: US lower ext pseudo artery RT DATE OF EXAM: 07/17/2024 COMPARISON: NONE CLINICAL INDICATION: Male, 79 years old with history of right groin hematoma; Heart Catheterization o n July 10, excessive bruising at puncture site TECHNIQUE:: Grayscale, color Doppler and spectral Doppler imaging performed of the groin, post cardia c catheter to assess for pseudoaneurysm. FINDINGS: SIDE PERFORMED: Right Color and Waveform Doppler performed to assess for the presence of pseudoaneurysm; Is there ultrasound evidence of a pseudoaneurysm: No, Is there evidence of AV shunting: No Is there a fluid collection present: Multiple IMPRESSION: No evidence for pseudoaneurysm. Hypoechoic lesion compatible with hematoma in the groin. [facility], , 07/17/2024 10:49 AM
--- NOTE | 2024-07-17 14:39 | P.PN ---
Subjective Progress Note Date: 07/17/24 HISTORY OF PRESENTING ILLNESS: Patient is a 79-year-old male who was transferred from [facility] because of NSTEMI. He underwent a cardiac catheterization yesterday which showed severe disease in LCx and LAD thereafter receiving PCI to both the vessels. Postoperatively he has been doing well. Patient denies any chest pain chest pressure shortness of breath His right common femoral access site appears to be intact with no signs of hematoma or bleeding. Progress note 07/12/2024 It is noted that patient has a large ecchymosis and a small hematoma in the right groin. For this I will obtain a CT abdominal pelvis with contrast to make sure there is no large collection of retroperitoneal hematoma or any thigh hematoma. I will follow-up with the CT scan results I did not see any significant large hematoma. He is hemoglobin has been stable. Denies any chest pain chest pressure. 07/13/2024 This morning blood pressure was 90/55, however repeat was 130/59, heart rate is 79 bpm, sinus rhythm on telemetry No new cardiovascular complaints Ecchymosis in the groin appears to be stable with no new changes. 07/14 Patient seen and examined. Patient does have ecchymosis to the groin area as well as scrotal area. He has had urinary retention for which urology was added. A CAT scan of the abdomen pelvis was done yesterday which revealed 3.5 x 2.1 cm hematoma in the right groin. No complaints of chest pain no shortness of breath. Blood pressure 138/67, heart rate 65, pulse ox 96% on room air. 07/15 Patient seen and examined. Patient has Contreras catheter in place, there is noted hematuria. Patient denies chest pain, no shortness of breath. Blood pressure 97/53, heart rate 71, pulse ox 96% on room air. Repeat blood work reveals hemoglobin 10.1, WBC 11.3. 07/16 Patient seen and examined. He still has edema to the right groin but the area is soft. Hemoglobin is 9.8. He is waiting for urology evaluation. Blood pressure 108/56, heart rate 62, pulse ox 98% on room air. 07/17 Patient continues to have a right groin hematoma. Patient has had continuous slow drop in his hemoglobin now at 9.8. Duplex study will be ordered. Blood pressure 124/58, heart rate 64, pulse ox 100% on room air. PHYSICAL EXAMINATION: Neck: Brisk carotid upstroke, no jugular venous distention. Lungs: Clear to auscultation. Heart: Regular rate and rhythm, S1-S2, , no murmur or rub. Abdomen: Soft nontender, positive bowel sounds. Extremities: No edema, intact distal pulses. Neuro: Alert, oriented, no focal deficits. Detailed neuro exam was not performed. ASSESSMENT: # NSTEMI # CAD status post PCI to LAD and LCx # Essential hypertension # Dyslipidemia Right groin hematoma PLAN: Continue aspirin, Brilinta 90 mg twice daily, Lipitor, Coreg 3.125 mg twice daily, Lisinopril 2.5 mg Schedule patient for right groin ultrasound duplex to evaluate hematoma Recommend outpatient follow-up with primary wafer batter mixer Recommend outpatient cardiac rehab Nurse practitioner note has been reviewed, I agree with documented findings and plan of care. Patient was seen and examined. Objective - Vital Signs Vital signs: Vital Signs Temp 97.5 F L 07/17/24 08:57 Pulse 64 07/17/24 12:22 Resp 16 07/17/24 12:22 BP 124/58 07/17/24 12:22 Pulse Ox 100 07/17/24 12:22 FiO2 Intake & Output 07/16/24 07/17/24 07/17/24 18:59 06:59 18:59 Intake Total 368 500 250 Output Total 750 2660 800 Balance -382 -2160 -550 Weight 83 kg Intake: IV 10 20 10 Invasive Line 4 10 20 10 Oral 358 480 240 Output: Urine 750 2660 800 Uretheral (Contreras) 500 Other: Voiding Method Indwelling Catheter Indwelling Catheter Indwelling Catheter # Bowel Movements 2 - Labs CBC & Chem 7: 07/16/24 08:22 07/13/24 07:15
[2024-07-17 17:04] VITALS: BP 100/61; PULSE 66; TEMP 97.6
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
== END 2024-07-17 18:38 | disposition home or self-care (01) | DRG 322 ==
LOC: 3SCARD 13:47
PROVIDERS: ADMIT Hospitalist; ATTEND Hospitalist
PROC: 027136Z Dilation of Coronary Artery, Two Arteries with Three Drug-eluting Intraluminal Devices, Percutaneous Approach (ICD-10-PCS; principal; 2024-07-10 12:25)
PROC: B241ZZ3 Ultrasonography of Multiple Coronary Arteries, Intravascular (ICD-10-PCS; 2024-07-10 12:25)
DX: I21.4 Non-ST elevation (NSTEMI) myocardial infarction (principal); D62 Acute posthemorrhagic anemia; I10 Essential (primary) hypertension; I97.630 Postprocedural hematoma of a circulatory system organ or structure following a cardiac catheterization; N13.8 Other obstructive and reflux uropathy; D53.9 Nutritional anemia, unspecified; D75.89 Other specified diseases of blood and blood-forming organs; E78.5 Hyperlipidemia, unspecified; H91.90 Unspecified hearing loss, unspecified ear; I25.10 Atherosclerotic heart disease of native coronary artery without angina pectoris; N40.1 Benign prostatic hyperplasia with lower urinary tract symptoms; N32.0 Bladder-neck obstruction; Y84.0 Cardiac catheterization as the cause of abnormal reaction of the patient, or of later complication, without mention of misadventure at the time of the procedure; Z86.73 Personal history of transient ischemic attack (TIA), and cerebral infarction without residual deficits; I25.2 Old myocardial infarction; Z87.891 Personal history of nicotine dependence; Z79.899 Other long term (current) drug therapy; Z86.2 Personal history of diseases of the blood and blood-forming organs and certain disorders involving the immune mechanism; Z82.49 Family history of ischemic heart disease and other diseases of the circulatory system; R31.9 Hematuria, unspecified
CPT/HCPCS: 74177; 80048; 81003; 82607; 83735; 85025; 85027; 85610; 85730; 92978; 92979; 93975